=== PATIENT | male | born 1940 | race Caucasian/White ===

== ENCOUNTER 2016-12-24 14:41 | Emergency (ER) | payer OTHER, BC ==
[~2016-12-24] VITALS: Ht 182.9 cm; Wt 107.0 kg
[~2016-12-24 14:41] MED LIST: AMLO-110 PO; AMOX500T PO; ASPEC325 PO; ATOR-22 PO; CLOP1TAB15 PO; DVN80 PO; GLC500 PO; MCR25 PO; METO50TA16 PO; NTRGSL/4 SL; OMEP20CA9 OR; STLS PO
[2016-12-24 14:48] VITALS: TEMP 36.6; Ht 182.9 cm; Wt 107.0 kg
[2016-12-24] MEDS ORDERED: MoRPHine SULFATE 4 MG/ML 1 ML CARP\\VIAL IV STA (15:56)
[2016-12-24] MEDS ORDERED: ONDANSETRON INJ 2 MG/ML 2 ML VIAL IV STA (15:56)
[2016-12-24] MEDS ORDERED: DOCU-94 PO (15:59)
[2016-12-24] MEDS ORDERED: PANT40TA PO (15:59)
[2016-12-24] MEDS ORDERED: FLAX100019 PO (15:59)
[2016-12-24] MEDS ORDERED: METF-384 PO (15:59)
[2016-12-24] MEDS ORDERED: GLYB2.5T7 PO (15:59)
[2016-12-24] MEDS ORDERED: DVN80 PO (15:59)
[2016-12-24] MEDS ORDERED: ASPI81TA28 PO (16:00)
[2016-12-24 16:06] LABS: BASO % 0.1 %; BASO ABS # 0.01 K/uL (0-0.2); COMPLETE YES; EOS % 0.9 %; HEMATOCRIT 40.6 % (42-52); IG% 0.2 %; LYMPH % 16.8 %; LYMPH ABS # 1.58 K/uL (1.2-3.4); MEAN CELL VOLUME 91.6 fL (80-100); MEAN CORPUSCULAR HEMOGLOBIN 32.5 pg (25-34); MEAN CORPUSCULAR HGB CONC 35.5 g/dl (32-36); MEAN PLATELET VOLUME 9.3 fL (7.4-10.4); MONO % 10.6 %; NEUT % 71.4 %; PLATELET COUNT 203 K/uL (130-400); RED BLOOD COUNT 4.43 M/uL (4.7-6.1); WHITE BLOOD COUNT 9.38 K/uL (4.8-10.8)
[2016-12-24 16:17] LABS: BUN/CREATININE RATIO 13.8 (10-20); CALCIUM 8.9 mg/dl (8.5-10.1); CREATININE 1.2 mg/dl (0.60-1.40); POTASSIUM 4.1 mmol/L (3.5-5.1)
[2016-12-24 16:26] LABS: BETA-HYDROXYBUTYRATE 1.97 mg/dL (0.2-2.81)
--- NOTE | 2016-12-24 17:06 | DIAGNOSTIC IMAGING REPORT ---
CT SCAN OF THE ABDOMEN AND PELVIS WITHOUT CONTRAST CLINICAL HISTORY: Right flank pain COMPARISON STUDY: No previous studies for comparison. TECHNIQUE: CT scan of the abdomen and pelvis was performed from the lung bases to the proximal femurs. Images are reviewed in the axial, sagittal, and coronal planes. IV contrast was not administered for this examination. CT DOSE: 1653.97 mGy.cm FINDINGS: Lower chest: There are right middle lobe and bibasilar atelectatic changes. Liver: The unenhanced liver is normal in size, contour, and attenuation. There is no intrahepatic biliary ductal dilatation. Gallbladder: Unremarkable. Spleen: Normal in size and attenuation. Pancreas: Unremarkable. Adrenal glands: Unremarkable. Kidneys: There is a centimeter lower pole right renal cyst. There is a punctate nonobstructing lower pole right renal calculus. There is right-sided hydronephrosis. There is right-sided perinephric stranding. There is right-sided periureteral edema. There is a 3 mm obstructing calculus at the level of the right ureterovesical junction. Bowel: There are no transition zones indicate bowel obstruction. There is no evidence of acute appendicitis. There are scattered colonic diverticula present. There is no evidence of acute diverticulitis. Peritoneum: There is no intraperitoneal free air or abdominal ascites. Vasculature: The abdominal aorta is normal in course and caliber. Adenopathy: None. Pelvic viscera: There are fat-containing inguinal hernias versus lipomatous inguinal canals. Skeletal structures: No destructive osseous lesions are seen. IMPRESSION: 3 mm obstructing calculus at the level of the right ureterovesical junction Electronically signed by: Judd Arita M.D. 12/24/2016 5:04 PM Dictated Date/Time: 12/24/2016 5:00 PM
[2016-12-24 17:11] LABS: URINE APPEARANCE CLEAR (CLEAR); URINE BILIRUBIN NEG (NEG); URINE COLOR YELLOW; URINE EPITHELIAL CELL AUTO 0-5 /lpf (0-5); URINE NITRITE NEG (NEG); URINE SPECIFIC GRAVITY 1.025 (1.000-1.030); UROBILINOGEN NEG (NEG)
[2016-12-24 17:23] LABS: MANUAL MICROSCOPIC REQUIRED? NO; REVIEW REQ? YES
[2016-12-24] MEDS ORDERED: OXYC1TAB3 PO (17:43)
[2016-12-24] MEDS ORDERED: TAMS0.4C38 PO (17:43)
[2016-12-24] MEDS ORDERED: TAMSULOSIN HCL 0.4 MG CAP PO ONE (17:45)
[2016-12-24] MEDS ORDERED: OXYCODONE IR HOME PACK PO ONE (17:45)
[2016-12-24 18:06] VITALS: BP 136/89; PULSE 68; O2SAT 92
--- NOTE | 2016-12-24 19:22 | EMERGENCY ROOM VISIT NOTE ---
History Report prepared by Karen: Shania Galvin Under the Supervision of: Dr. Leland Huang M.D. First contact with patient: 15:50 Chief Complaint: FLANK PAIN Stated Complaint: PAIN IN RIGHT SIDE AROUND KIDNEY History of Present Illness The patient is a 76 year old male who presents to the Emergency Room with complaints of waxing and waning sharp right flank pain beginning 13 hours ago. The patient states that his pain is radiating into his abdomen and he complains of vomiting. He denies any pain with urination, blood in the urine, fever, chest pain, numbness or weakness in the legs, fall, and shortness of breath. He notes that he has no previous history of kidney stones. The patient reports that he still has his appendix. Source of History: patient Onset: 13 hours ago Position: other (right flank) Quality: sharp Timing: waxes/wanes Associated Symptoms: + abdominal pain, + vomiting, No SOB, No chest pain, No fevers, No numbness, No urinary symptoms, No weakness Note: He denies any fall. Review of Systems See HPI for pertinent positives & negatives. A total of 10 systems reviewed and were otherwise negative. Past Medical & Surgical Medical Problems: (1) Diabetes Family History No pertinent family history stated. Social History Smoking Status: Never Smoker Drug Use: none Marital Status: Housing Status: lives with significant other Occupation Status: retired Current/Historical Medications Scheduled Amlodipine (Norvasc), 5 MG PO DAILY Aspirin (Aspirin Ec), 81 MG PO DAILY Atorvastatin (Lipitor), 20 MG PO HS Docusate Sodium (Colace), 1 CAP PO BID Flaxseed (Linseed) (Flaxseed Oil 1000 mg), 1 CAP PO DAILY Glyburide (Diabeta), 2.5 MG PO BID Metformin Hcl (Glucophage), 1,000 MG PO BID Metoprolol Tartrate (Lopressor) (Lopressor), 50 MG PO Q12 Pantoprazole (Protonix), 40 MG PO DAILY Valsartan (Diovan), 80 MG PO DAILY Scheduled PRN Nitroglycerin (Nitrostat), 0.4 MG SL UD PRN Oxycodone Ir (Roxicodone Ir), 5 MG PO Q4H PRN for Pain Tamsulosin Hcl (Flomax), 0.4 MG PO DAILY PRN for until you pass stone Allergies Coded Allergies: Clopidogrel (Verified Allergy, Unknown, ., 12/24/16) Physical Exam Vital Signs Date Time Temp Pulse Resp B/P Pulse Ox O2 Delivery O2 Flow Rate FiO2 12/24/16 18:06 68 18 136/89 92 12/24/16 16:45 63 18 157/105 94 Room Air 12/24/16 14:48 36.6 99 18 174/93 94 Room Air Physical Exam Constitutional: Vital signs reviewed. Eyes: Pupils are equal round reactive to light. Conjunctiva are noninjected. ENT: Pharynx is clear without erythema or exudate. Mucous membranes are moist. Neck supple without meningeal signs. Respiratory: Clear to auscultation bilaterally. Breath sounds are equal bilaterally. Cardiovascular: Regular rate and rhythm. No rubs or gallops. GI: Soft, nondistended. Bowel sounds are present. Right mild mid abdominal tenderness, no guarding. Musculoskeletal: No peripheral edema. No CVA tenderness. Integumentary: No cyanosis. Neurological: The patient is awake and alert. No focal deficits. Psychiatric: Normal affect. Medical Decision & Procedures ER Provider Diagnostic Interpretation: CT results as stated below per my review and radiologist interpretation. CT SCAN OF THE ABDOMEN AND PELVIS WITHOUT CONTRAST FINDINGS: Lower chest: There are right middle lobe and bibasilar atelectatic changes. Liver: The unenhanced liver is normal in size, contour, and attenuation. There is no intrahepatic biliary ductal dilatation. Gallbladder: Unremarkable. Spleen: Normal in size and attenuation. Pancreas: Unremarkable. Adrenal glands: Unremarkable. Kidneys: There is a centimeter lower pole right renal cyst. There is a punctate nonobstructing lower pole right renal calculus. There is right-sided hydronephrosis. There is right-sided perinephric stranding. There is right-sided periureteral edema. There is a 3 mm obstructing calculus at the level of the right ureterovesical junction. Bowel: There are no transition zones indicate bowel obstruction. There is no evidence of acute appendicitis. There are scattered colonic diverticula present. There is no evidence of acute diverticulitis. Peritoneum: There is no intraperitoneal free air or abdominal ascites. Vasculature: The abdominal aorta is normal in course and caliber. Adenopathy: None. Pelvic viscera: There are fat-containing inguinal hernias versus lipomatous inguinal canals. Skeletal structures: No destructive osseous lesions are seen. IMPRESSION: 3 mm obstructing calculus at the level of the right ureterovesical junction Electronically signed by: Judd Arita M.D. 12/24/2016 5:04 PM Dictated Date/Time: 12/24/2016 5:00 PM Laboratory Results 12/24/16 15:20 Red Blood Count 4.43, Mean Corpuscular Volume 91.6, Mean Corpuscular Hemoglobin 32.5, Mean Corpuscular Hemoglobin Concent 35.5, Mean Platelet Volume 9.3, Neutrophils (%) (Auto) 71.4, Lymphocytes (%) (Auto) 16.8, Monocytes (%) (Auto) 10.6, Eosinophils (%) (Auto) 0.9, Basophils (%) (Auto) 0.1, Neutrophils # (Auto ) 6.70, Lymphocytes # (Auto) 1.58, Monocytes # (Auto) 0.99, Eosinophils # (Auto ) 0.08, Basophils # (Auto) 0.01 12/24/16 15:20 Test 12/24/16 00:00 12/24/16 15:20 Urine Color YELLOW Urine Appearance CLEAR (CLEAR) Urine pH 5.0 (4.5-7.5) Urine Specific [place] 1.025 (1.000-1.030) Urine Protein NEG (NEG) Urine Glucose (UA) 3+ (NEG) Urine Ketones 1+ (NEG) Urine Occult Blood 3+ (NEG) Urine Nitrite NEG (NEG) Urine Bilirubin NEG (NEG) Urine Urobilinogen NEG (NEG) Urine Leukocyte Esterase NEG (NEG) Urine WBC (Auto) 0 /hpf (0-5) Urine RBC (Auto) 10-30 /hpf (0-4) Urine Hyaline Casts (Auto) 1-5 /lpf (0-5) Urine Epithelial Cells (Auto) 0-5 /lpf (0-5) Urine Bacteria (Auto) NEG (NEG) Urine Yeast (Auto) (NONE PRSENT) White Blood Count 9.38 K/uL (4.8-10.8) Red Blood Count 4.43 M/uL (4.7-6.1) Hemoglobin 14.4 g/dL (14.0-18.0) Hematocrit 40.6 % (42-52) Mean Corpuscular Volume 91.6 fL (80-100) Mean Corpuscular Hemoglobin 32.5 pg (25-34) Mean Corpuscular Hemoglobin Concent 35.5 g/dl (32-36) Platelet Count 203 K/uL (130-400) Mean Platelet Volume 9.3 fL (7.4-10.4) Neutrophils (%) (Auto) 71.4 % Lymphocytes (%) (Auto) 16.8 % Monocytes (%) (Auto) 10.6 % Eosinophils (%) (Auto) 0.9 % Basophils (%) (Auto) 0.1 % Neutrophils # (Auto) 6.70 K/uL (1.4-6.5) Lymphocytes # (Auto) 1.58 K/uL (1.2-3.4) Monocytes # (Auto) 0.99 K/uL (0.11-0.59) Eosinophils # (Auto) 0.08 K/uL (0-0.5) Basophils # (Auto) 0.01 K/uL (0-0.2) RDW Standard Deviation 42.7 fL (36.4-46.3) RDW Coefficient of Variation 12.7 % (11.5-14.5) Immature Granulocyte % (Auto) 0.2 % Immature Granulocyte # (Auto) 0.02 K/uL (0.00-0.02) Anion Gap 12.0 mmol/L (3-11) Est Creatinine Clear Calc Drug Dose 66.2 ml/min Estimated GFR () 67.7 Estimated GFR (Non- 58.4 BUN/Creatinine Ratio 13.8 (10-20) Calcium Level 8.9 mg/dl (8.5-10.1) Total Bilirubin 0.4 mg/dl (0.2-1) Direct Bilirubin 0.1 mg/dl (0-0.2) Aspartate Amino Transf (AST/SGOT) 22 U/L (15-37) Alanine Aminotransferase (ALT/SGPT) 34 U/L (12-78) Alkaline Phosphatase 86 U/L (45-117) Total Protein 7.7 gm/dl (6.4-8.2) Albumin 4.3 gm/dl (3.4-5.0) Lipase 149 U/L (73-393) Beta-Hydroxybutyric Acid 1.97 mg/dL (0.2-2.81) Laboratory results as reviewed by me. Medications Administered Medications (Trade) Dose Ordered Sig/Jennyfer Route Start Time Stop Time Status Last Admin Dose Admin Morphine Sulfate (MoRPHine SULFATE INJ) 4 mg ONE STAT IV 12/24/16 15:56 12/24/16 15:58 DC 12/24/16 16:22 4 MG Ondansetron HCl (Zofran Inj) 4 mg NOW STAT IV 12/24/16 15:56 12/24/16 15:58 DC 12/24/16 16:22 4 MG Tamsulosin HCl (Flomax Cap) 0.4 mg NOW ONCE PO 12/24/16 17:45 12/24/16 17:46 DC 12/24/16 17:45 0.4 MG Oxycodone HCl (Roxicodone Immediate Rel 5MG Home Pack) 1 homepack UD ONCE PO 12/24/16 17:45 12/24/16 17:46 DC 12/24/16 17:45 1 HOMEPACK ED Course 1550: The patient was evaluated in room C5. A complete history and physical exam was performed. 1556: Zofran Inj 4mg IV, Morphine Sulfate 4mg IV. 1736: I reevaluated the patient. He is feeling better. I reviewed his test results and medications. 1745: Oxycodone HCl 1 homepack PO, Flomax Cap 0.4mg PO. 1745: Upon reevaluation, the patient appeared to have improvement of his symptoms. I discussed saul's findings with the patient. He verbalized agreement of the treatment plan. The patient was discharged home. Medical Decision This is a 76-year-old male who presents with right-sided flank pain. Differential diagnosis includes ureterolithiasis, hydronephrosis, appendicitis, strain, mass, pancreatitis. I did perform a limited focused review of portions of the patient's old chart on the electronic medical record. The patient has had no recent pertinent visits to this hospital. I did evaluate the patient as noted above. IV access was established. I did treat the patient with IV morphine and Zofran. I did order and review the patient's urinalysis as described above. I did order and review the patient's blood work as noted in the electronic medical record. I did order a CT of the abdomen and pelvis. I did review the images myself as well as the radiology report as described above. The patient has a 3 mm right UVJ stone. I did reassess the patient. He is feeling better. I did discuss the test results with the patient and his . He was given Flomax orally. He was advised follow with his doctor. He was discharged with a prescription for oxycodone and Flomax and given precautions regarding these medications. He will stop the Flomax once he passes the kidney stone. He was given a urine strainer and home pack for OxyIR. Impression Primary Impression: Renal colic Scribe Attestation The scribe's documentation has been prepared under my direct and personally reviewed by me in its entirety. I confirm that the note above accurately reflects all work, treatment, procedures, and medical decision making performed by me. Departure Information Dispostion Home / Self-Care Prescriptions Tamsulosin Hcl (FLOMAX) 0.4 Mg Cap 0.4 MG PO DAILY Y for until you pass stone, #6 CAP Prov: Leland Huang M.D. 12/24/16 Oxycodone Ir (Roxicodone Ir) 5 Mg Tab 5 MG PO Q4H Y for Pain, #20 TAB Prov: Leland Huang M.D. 12/24/16 Referrals John De Los Santos M.D. (PCP) Forms HOME CARE DOCUMENTATION FORM, IMPORTANT VISIT INFORMATION Patient Instructions Kidney Stones Expectant Therapy, My [facility] Additional Instructions You have been examined and treated today on an emergency basis only. This is not a substitute for, or an effort to provide, complete comprehensive medical care. It is impossible to recognize and treat all injuries or illnesses in a single emergency department visit. It is therefore important that you follow up closely with your physician. Call as soon as possible for an appointment. Return for worsening symptoms or if you develop fever, vomiting, or any other concerning symptoms.
== END 2016-12-24 18:07 | disposition home or self-care (01) ==
LOC: C.EDB 14:42 → C.EDC 18:07
DX: N23 Unspecified renal colic (principal); N20.1 Calculus of ureter

== ENCOUNTER → 2016-12-27 | Outpatient (CLI) | payer OTHER, BC ==
[~2016-12-27] MED LIST changes: -AMOX500T PO; -ASPEC325 PO; +ASPI81TA28 PO; -CLOP1TAB15 PO; +DOCU-94 PO; +FLAX100019 PO; -GLC500 PO; +GLYB2.5T7 PO; -MCR25 PO; +METF-384 PO; -OMEP20CA9 OR; +OXYC1TAB3 PO; +PANT40TA PO; -STLS PO; +TAMS0.4C38 PO
== END | disposition home or self-care (01) ==
LOC: C.LABSPEC 12:33
PROVIDERS: ATTEND Internal Medicine
DX: N20.0 Calculus of kidney (principal)

== ENCOUNTER → 2017-01-30 | Outpatient (CLI) | payer OTHER, BC ==
[~2017-01-30] MED LIST changes: -TAMS0.4C38 PO
[2017-01-30 13:57] LABS: ALT/SGPT 39 U/L (12-78); BLOOD UREA NITROGEN 13 mg/dl (7-18); BUN/CREATININE RATIO 15.3 (10-20); CALCIUM 8.9 mg/dl (8.5-10.1); CARBON DIOXIDE 23 mmol/L (21-32); CHLORIDE 103 mmol/L (98-107); CHOLESTEROL 149 mg/dl (0-200); CREATININE 0.86 mg/dl (0.60-1.40); GLUCOSE 198 mg/dl (70-99); POTASSIUM 4.1 mmol/L (3.5-5.1); SODIUM 139 mmol/L (136-145); TRIGLYCERIDES 210 mg/dl (0-150); VERY LOW DENSITY LIPOPROT CALC 42 mg/dl
[2017-01-30 13:59] LABS: ALB/GLOB RATIO 1.2 (0.9-2); ALKALINE PHOSPHATASE 65 U/L (45-117); AST/SGOT 26 U/L (15-37); CHOLESTEROL/HDL RATIO 4.1; HDL CHOLESTEROL 36 mg/dl
[2017-01-30 14:13] LABS: ESTIMATED AVERAGE GLUCOSE 183 mg/dl; HA1C FLAG Normal (Normal)
[2017-01-30 14:19] LABS: RATIO 27.7 mcg/mg (0-30.0)
== END | disposition home or self-care (01) ==
LOC: C.LABSPEC 12:29
PROVIDERS: ATTEND Internal Medicine
DX: E11.9 Type 2 diabetes mellitus without complications (principal); I25.10 Atherosclerotic heart disease of native coronary artery without angina pectoris; E78.5 Hyperlipidemia, unspecified

== ENCOUNTER → 2017-02-01 | Outpatient (CLI) | payer OTHER, BC | END | disposition home or self-care (01) | LOC: C.LABSPEC 17:33 | PROVIDERS: ATTEND Internal Medicine | DX: Z12.11 Encounter for screening for malignant neoplasm of colon (principal) ==

== ENCOUNTER → 2017-07-28 | Outpatient (CLI) | payer OTHER, BC ==
[~2017-07-28] MED LIST changes: +OPTIRAY 320 IV PRN; -OXYC1TAB3 PO
[2017-07-28 11:38] LABS: BASO % 0.3 %; BASO ABS # 0.02 K/uL (0-0.2); EOS % 1.2 %; HEMATOCRIT 40.1 % (42-52); IG% 0.3 %; LYMPH % 22.8 %; LYMPH ABS # 1.54 K/uL (1.2-3.4); MEAN CELL VOLUME 91.8 fL (80-100); MEAN CORPUSCULAR HEMOGLOBIN 31.8 pg (25-34); MEAN PLATELET VOLUME 8.5 fL (7.4-10.4); MONO % 8.3 %; NEUT % 67.1 %; PLATELET COUNT 217 K/uL (130-400); RED BLOOD COUNT 4.37 M/uL (4.7-6.1); WHITE BLOOD COUNT 6.76 K/uL (4.8-10.8)
[2017-07-28 11:40] LABS: COMPLETE YES; MEAN CORPUSCULAR HGB CONC 34.7 g/dl (32-36)
[2017-07-28 11:56] LABS: ALT/SGPT 31 U/L (12-78); BLOOD UREA NITROGEN 13 mg/dl (7-18); BUN/CREATININE RATIO 11.8 (10-20); CARBON DIOXIDE 25 mmol/L (21-32); CHLORIDE 105 mmol/L (98-107); GLUCOSE 257 mg/dl (70-99); POTASSIUM 4.1 mmol/L (3.5-5.1); SODIUM 138 mmol/L (136-145)
[2017-07-28 12:00] LABS: ALKALINE PHOSPHATASE 85 U/L (45-117); AST/SGOT 27 U/L (15-37)
--- NOTE | 2017-07-28 13:37 | DIAGNOSTIC IMAGING REPORT ---
CT ABD/PELVIS IV AND ORAL CONT CLINICAL HISTORY: SEVERE LLQ PAIN, R/O DIVERTICULITIS COMPARISON STUDY: 12/16/2016 TECHNIQUE: Following the IV administration of 92 mL of Optiray-320, CT scan of the abdomen and pelvis was performed from the lung bases to the proximal femurs. Images are reviewed in the axial, sagittal, and coronal planes. IV contrast was administered without complication. A dose lowering technique was utilized adhering to the principles of ALARA. CT DOSE: 852.95 mGy.cm FINDINGS: Lower chest: There are minor basilar atelectatic changes. Liver: There is mild hepatic steatosis. No focal masses are visualized. Gallbladder: Unremarkable. Spleen: Normal in size and attenuation. Pancreas: Unremarkable. Adrenal glands: Unremarkable. Kidneys: There are bilateral renal cysts including a 9.5 cm lower pole left renal cyst. There is a punctate nonobstructing lower pole right renal calculus. There is a 2 mm calculus at the level of the left ureterovesical junction. There is mild secondary dilatation of the left renal collecting system. Bowel: There are no transition zones indicate bowel obstruction. There is colonic diverticulosis. There is no acute diverticulitis. The appendix is bulbous but there are no periappendiceal inflammatory changes. The finding remains unchanged from the preceding study Peritoneum: There is no intraperitoneal free air or abdominal ascites. There is small fat-containing hernias. Vasculature: The abdominal aorta is normal in course and caliber. Adenopathy: None. Pelvic viscera: The bladder, and pelvic viscera are unremarkable. Skeletal structures: No destructive osseous lesions are seen. IMPRESSION: 1. 2 mm calculus at the level of the left ureterovesical junction with mild secondary obstructive changes 2. Punctate lower pole right renal calculus 3. No evidence of bowel obstruction. No evidence of free air 4. No evidence of acute diverticulitis Electronically signed by: Judd Arita M.D. 07/28/2017 1:36 PM Dictated Date/Time: 07/28/2017 1:29 PM
== END | disposition home or self-care (01) ==
LOC: C.CTS 11:19
PROVIDERS: ATTEND Internal Medicine
DX: R10.32 Left lower quadrant pain (principal)

== ENCOUNTER → 2018-02-08 | Outpatient (CLI) | payer OTHER, BC ==
[~2018-02-08] MED LIST changes: -OPTIRAY 320 IV PRN
[2018-02-08 16:42] LABS: BASO % 0.2 %; BASO ABS # 0.01 K/uL (0-0.2); EOS % 2.3 %; EOS ABS # 0.13 K/uL (0-0.5); HEMATOCRIT 37.5 % (42-52); HEMOGLOBIN 12.2 g/dL (14.0-18.0); IG# 0.01 K/uL (0.00-0.02); LYMPH % 21.2 %; LYMPH ABS # 1.21 K/uL (1.2-3.4); MEAN CELL VOLUME 90.1 fL (80-100); MEAN CORPUSCULAR HEMOGLOBIN 29.3 pg (25-34); MEAN CORPUSCULAR HGB CONC 32.5 g/dl (32-36); MONO % 12.5 %; MONO ABS # 0.71 K/uL (0.11-0.59); NEUT % 63.6 %; NEUT ABS # 3.63 K/uL (1.4-6.5); PLATELET COUNT 238 K/uL (130-400); RED CELL DISTRIBUTION WIDTH CV 13.3 % (11.5-14.5); RED CELL DISTRIBUTION WIDTH SD 43.8 fL (36.4-46.3)
[2018-02-08 16:54] LABS: ALBUMIN 3.8 gm/dl (3.4-5.0); ALT/SGPT 32 U/L (12-78); BLOOD UREA NITROGEN 11 mg/dl (7-18); CARBON DIOXIDE 25 mmol/L (21-32); CREATININE 0.91 mg/dl (0.60-1.40); GLUCOSE 273 mg/dl (70-99); LIPASE 165 U/L (73-393); POTASSIUM 4.2 mmol/L (3.5-5.1); SODIUM 133 mmol/L (136-145)
[2018-02-08 16:56] LABS: ALKALINE PHOSPHATASE 89 U/L (45-117); AST/SGOT 33 U/L (15-37); TOTAL PROTEIN 7.9 gm/dl (6.4-8.2)
== END | disposition home or self-care (01) ==
LOC: C.LABSPEC 16:09
PROVIDERS: ATTEND Internal Medicine
DX: R10.11 Right upper quadrant pain (principal); I25.10 Atherosclerotic heart disease of native coronary artery without angina pectoris; I10 Essential (primary) hypertension

== ENCOUNTER → 2018-02-13 | Outpatient (CLI) | payer OTHER, BC ==
--- NOTE | 2018-02-13 09:12 | DIAGNOSTIC IMAGING REPORT ---
ABDOMEN LIMITED (US) HISTORY: 77 years-old Male UPPER ABD PAIN acute upper abdominal pain COMPARISON: CT abdomen and pelvis 07/28/2017 TECHNIQUE: Multiple real-time sonogram images of the abdominal right upper quadrant were obtained assessing grayscale appearance and color flow FINDINGS: The imaged pancreas is unremarkable. There is increased echogenicity with poor through transmission of the liver suggesting fatty infiltration. No focal hepatic mass lesions or intrahepatic biliary ductal dilation. A few areas of focal fatty sparing are noted adjacent to the hazel hepatis measuring up to 7 mm. Gallbladder is within normal limits without wall thickening, shadowing cholelithiasis or pericholecystic fluid. Common bile duct is normal, 4 mm. 9 mm cyst of the superior pole right kidney redemonstrated. No right-sided hydronephrosis identified. Patient reports tenderness of the right lower quadrant abdomen. There is an apparent bowel containing hernia of the abdominal right lower quadrant which does not appear to be reducible, diastases at the hernia site measuring 2 cm. IMPRESSION: 1. Unremarkable sonographic appearance of the gallbladder without cholelithiasis or acute cholecystitis. 2. Fatty infiltration of the liver. 3. Bowel filled hernia of the abdominal right lower quadrant appears nonreducible. Correlate with clinical exam. The above report was generated using voice recognition software. It may contain grammatical, syntax or spelling errors. Electronically signed by: Clint Rodriguez M.D. 02/13/2018 9:10 AM Dictated Date/Time: 02/13/2018 9:06 AM
== END | disposition home or self-care (01) ==
LOC: C.ULTR 08:25
PROVIDERS: ATTEND Internal Medicine
DX: R10.10 Upper abdominal pain, unspecified (principal); K76.0 Fatty (change of) liver, not elsewhere classified

== ENCOUNTER → 2018-03-02 | Outpatient (CLI) | payer OTHER, BC ==
[~2018-03-02] MED LIST changes: +DVN/160 PO; +GLYB5TAB8 PO; +LPT/40 PO; +MULT-1027 PO; +NAPR1TAB9 PO; +NTRGSL/4 UT; +OPTIRAY 320 IV PRN; +PRLSR20 PO; +TRAM-10 PO
--- NOTE | 2018-03-02 08:07 | DIAGNOSTIC IMAGING REPORT ---
CT OF THE ABDOMEN AND PELVIS WITH CONTRAST CLINICAL HISTORY: Pelvic pain. Right lower quadrant hernia seen on ultrasound. COMPARISON STUDY: CT of the abdomen and pelvis July 28, 2017 and abdominal ultrasound February 13, 2018. TECHNIQUE: Following IV administration of 94 mL of Optiray-320, axial images of the abdomen and pelvis were obtained from the lung bases to the proximal femurs. Images were reviewed in the axial, sagittal, and coronal planes. IV contrast was administered without complication. A dose lowering technique was utilized adhering to the principles of ALARA. Oral contrast was administered. CT DOSE: 1047.61 mGycm FINDINGS: Linear bibasilar opacities reflect atelectasis. There is moderate cardiomegaly and extensive coronary artery calcification. The liver, spleen, adrenal glands and pancreas are normal with the exception of fatty infiltration of the liver. Note is made of an 8.5 cm cyst within the lower pole of the left kidney. There are numerous subcentimeter bilateral renal lesions which are too small to characterize. There is no hydronephrosis. Note is made of a 3 mm calculus within the lower pole of the right kidney. No pneumatosis, free air or portal venous gas is present. There is a small amount of abdominal and pelvic ascites. Note is made of moderate dilated fluid-filled small bowel. This involves the mid to distal small bowel. The transition point is likely at the ileocecal valve. There is mass-like thickening of the ileocecal valve and the cecum with conglomerate associated ileocolic lesions, the largest of which measures 3.9 cm. These could reflect conglomerate pathologic lymph nodes. The appendix is mildly dilated and fluid filled with mild wall thickening, measuring 1.4 cm in caliber. Note is made of a few possible small enhancing peritoneal nodules within the cul-de-sac shown on axial image 417 of 491 and axial image 411. These measure 5 mm. In addition, there is a possible 1 cm omental implant within the right mid omentum shown on axial image 202. There is no biliary or pancreatic ductal dilatation. IMPRESSION: 1. Moderate grade small bowel obstruction with transition point likely at the ileocecal valve. Mass-like thickening of the ileocecal valve and cecum is highly suggestive of malignancy with associated conglomerate ileocolic lymphadenopathy/extension of tumor. Mild appendiceal dilatation may reflect appendicitis secondary to obstruction by the tumor. Small amount of abdominal and pelvic ascites with suspected small peritoneal and omental implants. Discussed with Dr. Jaimes at time of dictation. 2. Fatty liver. No hepatic lesions identified. 3. Numerous renal cysts. Electronically signed by: Chidi Vogel M.D. 03/02/2018 8:05 AM Dictated Date/Time: 03/02/2018 7:34 AM
== END | disposition home or self-care (01) ==
LOC: C.CTS 06:58
PROVIDERS: ATTEND Surgery
DX: K46.9 Unspecified abdominal hernia without obstruction or gangrene (principal); R10.9 Unspecified abdominal pain; N28.1 Cyst of kidney, acquired

== ENCOUNTER → 2018-03-05 | Outpatient (CLI) | payer OTHER, BC ==
[~2018-03-05] MED LIST changes: +TRAM-453 PO
--- NOTE | 2018-03-05 07:16 | DIAGNOSTIC IMAGING REPORT ---
CHEST CT WITH CONTRAST CT DOSE: 459.33 mGy.cm HISTORY: Metastatic survey. K63.9 Mass of colonPATIENT IS SCHEDULED FOR 03/05/18, ARRIVE AT HO TECHNIQUE: Multiaxial CT images of the chest were performed following the intravenous administration of contrast. A dose lowering technique was utilized adhering to the principles of ALARA. COMPARISON: CT abdomen and pelvis 03/02/2018. FINDINGS: Thyroid is homogeneous without dominant nodule identified. No pathologically enlarged lymph nodes of the chest identified. Calcified bilateral hilar lymph nodes compatible with prior granulomatous disease. The heart is within the upper limits of normal in size with trace pericardial effusion. Three-vessel distribution of coronary arterial disease is noted. The thoracic aorta is normal in both course and caliber without aneurysm or dissection. Mild mixed plaquing of the aortic arch and proximal great vessels. There is slight kinking of the right subcutaneous and artery as it passes adjacent to the right first rib with less than 50% luminal narrowing. The opacified pulmonary arterial tree is unremarkable. There are multiple calcified granulomas but the lungs bilaterally. There is no pneumothorax or pleural effusion. Subsegmental linear areas of consolidation are noted within the mid and lower lung zones bilaterally suggesting areas of atelectasis/scarring. No suspicious pulmonary nodules are identified to suggest metastasis. Indeterminate 2 mm nodule of the left lower lobe, image 226 series 4 is likely benign. Central airways are patent. 12 mm cyst of the superior pole left kidney. Trace abdominal ascites. Mild dilation with air-fluid levels involves small bowel loops of the upper abdomen. Previously described suspected omental and peritoneal implants are better seen on comparison CT study. No hepatic mass lesions identified. Soft tissues are unremarkable. No suspicious lytic or blastic bony lesions identified to suggest metastasis. Remote appearing left-sided rib fractures. Predominately mild multilevel degenerative changes about the spine. IMPRESSION: 1. No evidence of metastatic disease or pathologically enlarged adenopathy about the chest. 2. Evidence of prior granulomatous disease. 3. Trace abdominal ascites with persistent mild dilation involving small bowel loops of the upper abdomen suggesting ongoing obstruction. Please refer to CT abdomen and pelvis study 03/02/2018 for further details concerning the abdominal and pelvis findings. Electronically signed by: Clint Rodriguez M.D. 03/05/2018 7:14 AM Dictated Date/Time: 03/05/2018 7:04 AM
== END | disposition home or self-care (01) ==
LOC: C.CTS 06:39
PROVIDERS: ATTEND Surgery
DX: K63.9 Disease of intestine, unspecified (principal)

== ENCOUNTER 2018-03-26 06:58 | Day surgery (SDC) | payer OTHER, BC ==
[2018-03-22 14:02] VITALS: BMI 29.0
[~2018-03-26] VITALS: Ht 182.9 cm; Wt 97.3 kg
[~2018-03-26 06:58] MED LIST changes: -ATOR-22 PO; +CEFAZOLIN 2000MG IV PUSH 15 ML IV SCH; -DOCU-94 PO; -DVN80 PO; -GLYB2.5T7 PO; +LACTATED RINGER'S 1000ML 1,000 ML IV SCH; -NTRGSL/4 SL; -OPTIRAY 320 IV PRN; -PANT40TA PO; -TRAM-10 PO
[2018-03-26 07:39] VITALS: BP 119/80; PULSE 93; TEMP 36.7; O2SAT 97; Ht 182.9 cm; Wt 97.3 kg
[2018-03-26] MEDS ORDERED: LIDOCAINE HCL 2% 2 ML VIAL (20MG/ML) ONE (09:08)
[2018-03-26] MEDS ORDERED: FENTANYL CITRATE INJ 50 MCG/1 ML 2 ML VIAL ONE (09:08)
[2018-03-26] MEDS ORDERED: MIDAZOLAM HCL 1 MG/ML 2ML VIAL ONE (09:08)
[2018-03-26] MEDS ORDERED: PROPOFOL IV EMULSION 10 MG/ML 20 ML VIAL ONE ×2 (09:08→10:14)
--- NOTE | 2018-03-26 09:19 | History & Physical Bridge Note ---
H&P Re-Evaluation Bridge Note: I have examined the patient, reviewed the History & Physical and in the interval since the performance of the History & Physical I have noted the following changes of clinical significance: No changes noted
[2018-03-26] MEDS ORDERED: ATROPINE SULFATE 0.1 MG/ML 5ML SYR IV PRN (09:30)
[2018-03-26] MEDS ORDERED: EpHEDrine SULFATE INJ 50 MG/ML AMP IV PRN (09:30)
[2018-03-26] MEDS ORDERED: ONDANSETRON INJ 2 MG/ML 2 ML VIAL IV PRN ×2 (09:30→10:45)
[2018-03-26] MEDS ORDERED: PROMETHAZINE HCL INJ 6.25 MG in SODIUM CHLORIDE 0.9% 50ML 50 ML IV PRN (09:30)
[2018-03-26] MEDS ORDERED: FENTANYL CITRATE INJ 50 MCG/1 ML 2 ML VIAL IV PRN (09:30)
[2018-03-26] MEDS ORDERED: BUPIVACAINE 0.5 % 5 MG/1 ML MPF 30ML VIAL ONE (09:35)
[2018-03-26] MEDS ORDERED: HEPARIN SOD (PORCINE) 1000 UNIT/ML 10 ML VIAL ONE (09:35)
[2018-03-26] MEDS ORDERED: LIDOCAINE/EPINEPHRINE 1% 20 ML VIAL ONE (09:36)
[2018-03-26] MEDS ORDERED: KETAMINE HCL INJ 50 MG/ML 10 ML VIAL ONE (09:37)
--- NOTE | 2018-03-26 10:01 | Discharge Instructions ---
Discharge Instructions Date of Service Mar 26, 2018. Visit Reason for Visit: Colon Cancer Discharge Discharge Diagnosis / Problem: A-port Discharge Goals Goal(s): Therapeutic intervention Activity Recommendations Activity Limitations: resume your previous activity Shower/Bathe: no limitations Anesthesia . Post Anesthesia Instructions: If you have had General Anesthesia or IV Sedation: * Do not drive today. * Resume driving when surgeon permits. * Do not make important decisions or sign legal documents today. * Call surgeon for: 1. Temperature elevations greater than 101 degrees F. 2. Uncontrollable pain. 3. Excessive bleeding. 4. Persistent nausea and vomiting. 5. Medication intolerance (nausea, vomiting or rash). * For nausea and vomiting use only clear liquids such as: tea, soda, bouillon until nausea subsides, then gradually increase diet as tolerated. * If you have any concerns or questions, call your surgeon's office. If physician is unavailable and it is an emergency, call 911 or go to the nearest emergency room. . Instructions / Follow-Up Instructions / Follow-Up Dr. Jaimes in 2 weeks or as scheduled, call [phone] if you have any questions It is OK for port to be used You may take Naproxen, Tylenol or Ultram for pain Diet Recommendations Recommended Home Diet: no limitations Pending Studies Studies pending at discharge: no Medical Emergencies . Who to Call and When: Medical Emergencies: If at any time you feel your situation is an emergency, please call 911 immediately. . Non-Emergent Contact Non-Emergency issues call your: Surgeon Call Non-Emergent contact if: you have a fever, temperature is above 101.5, your pain is not controlled, wound has increased redness . . "Provider Documentation" section prepared by Shin Aquino. .
--- NOTE | 2018-03-26 10:40 | [facility] Post Operative Brief Note ---
Immediate Operative Summary Operative Date Mar 26, 2018. Pre-Operative Diagnosis Colon cancer, need for vascular access for treatment Post-Operative Diagnosis Same as preop Procedure(s) Performed Insertion of Mediport into left internal jugular vein Surgeon Dr. Jaimes Endodontist Surgeon(s) Katheryn Burt PA-C Estimated Blood Loss 6 cc Findings Consistent with Post-Op Diagnosis Specimens none, as per surgeon Anesthesia Type MAC Complication(s) none Disposition Accompanied Pt To Recover: no Disposition: Recovery Room / PACU
--- NOTE | 2018-03-26 10:42 | [facility] Operative Report ---
Operative Report Operative Date Mar 26, 2018. Pre-Operative Diagnosis Colon cancer, need for vascular access for treatment Post-Operative Diagnosis Same Procedure(s) Performed Left internal jugular vein PowerPort placement Surgeon Dr. Jaimes Corner Former Surgeon(s) Katheryn Burt PA-C Estimated Blood Loss 6 cc Findings Left internal jugular vein accessed using real-time ultrasound guidance. Catheter placed using fluoroscopy. Draws and flushes easily at conclusion of case. Specimens none, as per surgeon Drains None Anesthesia MAC/local Complication(s) None Disposition Recovery Room / PACU Indications 77-year-old male with recently diagnosed colon cancer status post hemicolectomy , in need of access for chemotherapy. Plan for PowerPort placement the risks of the procedure were discussed, all questions were answered, and the patient agreed to proceed with surgery as planned. Description of Procedure The patient was properly identified, consented, and taken to the operating room where he was placed in the supine position with both arms tucked and a shoulder roll placed vertically. Monitored anesthesia care was induced. SCDs and a safety belt were placed. Preoperative antibiotics were administered. The patient's chest and neck was prepped and draped in the standard sterile fashion. Surgical timeout was performed and all parties were in agreement that this was the correct patient and procedure to be performed and we continued as planned. The patient was placed in Trendelenburg position. Local anesthetic was injected along the skin incision. Using real-time ultrasound guidance the left internal jugular vein was accessed using the access needle. The wire was placed and the needle was removed. Fluoroscopy confirmed placement into the internal jugular vein extending into the superior vena cava. A transverse skin incision was made in the left chest and a pocket was created for the port. A subcutaneous tunnel was created and the catheter was brought from the neck incision into the chest incision. The dilator and peel-away sheath were inserted over the wire. The catheter was then inserted through the peel-away sheath and fluoroscopy confirmed placement into the superior vena cava. The catheter was cut and attached to the port. The port was secured into place with 3-0 Prolene sutures. A final x-ray revealed good placement of the port. The wound was irrigated and hemostasis was confirmed. The skin was closed with interrupted 3-0 Vicryl deep dermal sutures, followed by 4-0 Monocryl running subcuticular suture. Dermabond was placed over the wound. The port was accessed and abdulaziz blood easily and flushed easily. It was flushed with heparinized saline. The patient taken to the PACU where he recovered without apparent incident. All sponge, instrument and needle counts were correct at the conclusion of the procedure. The patient tolerated the procedure well. Portable chest x-ray was pending at the time of this dictation per The physician's tiler's assistant was present and scrubbed for the entirety of the case , and was essential in positioning the patient, prepping and draping, retraction and exposure, placement of the port, closure of the wounds, and placement of dressings. I attest to the content of the Intraoperative Record and any orders documented therein. Any exceptions are noted below.
--- NOTE | 2018-03-26 10:44 | [facility] Operative Report ---
Operative Report Operative Date Mar 26, 2018. Pre-Operative Diagnosis Colon cancer, need for vascular access for treatment Procedure(s) Performed Left internal jugular vein PowerPort placed Surgeon Dr. Jaimes Findings Left internal jugular vein PowerPort placed using real-time ultrasound guidance. Fluoroscopy was used and interpreted by the surgeon throughout the procedure. A total of 62 seconds of fluoroscopy time was utilized. I attest to the content of the Intraoperative Record and any orders documented therein. Any exceptions are noted below.
[2018-03-26] MEDS ORDERED: MoRPHine SULFATE 2 MG/ML CARP IV PRN (10:45)
[2018-03-26] MEDS ORDERED: HYDROCODONE/ACETAMIN 5/325MG TAB PO PRN (10:45)
[2018-03-26 10:50] VITALS: BP 113/66; PULSE 95; TEMP 36.7; O2SAT 94
[2018-03-26] MEDS ORDERED: LACTATED RINGER'S 1000ML 1,000 ML IV SCH (11:00)
[2018-03-26 11:20] VITALS: BP 115/67; PULSE 98; TEMP 36.7; O2SAT 97
--- NOTE | 2018-03-26 11:31 | Anesthesiology Progress Note ---
Anesthesia Post Op Note Date & Time Mar 26, 2018 at 11:30 Vital Signs Pain Intensity: 0 Vital Signs Past 12 Hours Date Time Temp Pulse Resp B/P (MAP) Pulse Ox O2 Delivery O2 Flow Rate FiO2 03/26/18 10:50 36.7 95 18 113/66 94 Room Air 03/26/18 07:39 36.7 93 18 119/80 (93) 97 Room Air Notes Mental Status: alert / awake / arousable, participated in evaluation Pt Amnestic to Procedure: Yes Nausea / Vomiting: adequately controlled Pain: adequately controlled Airway Patency, RR, SpO2: stable & adequate BP & HR: stable & adequate Hydration State: stable & adequate Anesthetic Complications: no major complications apparent
--- NOTE | 2018-03-26 12:00 | DIAGNOSTIC IMAGING REPORT ---
CHEST ONE VIEW PORTABLE CLINICAL HISTORY: 77 years-old Male presenting with port placement. TECHNIQUE: Portable upright AP view of the chest was obtained. COMPARISON: 01/31/2012. FINDINGS: Interval placement of a left internal jugular Mediport, which terminates in the lower SVC. Atherosclerosis and mild tortuosity of the thoracic aorta. Vertex silhouette normal in size. No focal opacity. No large effusion or pneumothorax. Degenerative changes of the thoracic spine. Old fracture deformities of the right second rib. Previously noted anterolateral fractures of the left ribs not apparent. IMPRESSION: 1. Interval placement of a left IJ Mediport appropriately positioned in the SVC. No pneumothorax. Electronically signed by: Deyvi Stoll M.D. 03/26/2018 11:58 AM Dictated Date/Time: 03/26/2018 11:55 AM
== END 2018-03-26 12:39 | disposition home or self-care (01) ==
LOC: C.ACU 06:58
PROVIDERS: ATTEND Surgery
DX: C18.2 Malignant neoplasm of ascending colon (principal); E11.9 Type 2 diabetes mellitus without complications; E78.5 Hyperlipidemia, unspecified; I25.10 Atherosclerotic heart disease of native coronary artery without angina pectoris; I10 Essential (primary) hypertension; Z90.49 Acquired absence of other specified parts of digestive tract; Z96.652 Presence of left artificial knee joint; Z82.49 Family history of ischemic heart disease and other diseases of the circulatory system

== ENCOUNTER → 2018-06-20 | Outpatient (CLI) | payer OTHER, BC ==
[~2018-06-20] MED LIST changes: -AMLO-110 PO; +AMLO5TAB3 PO; -CEFAZOLIN 2000MG IV PUSH 15 ML IV SCH; -LACTATED RINGER'S 1000ML 1,000 ML IV SCH; +OPTIRAY 320 IV PRN; -TRAM-453 PO
--- NOTE | 2018-06-20 12:39 | DIAGNOSTIC IMAGING REPORT ---
CT (CHEST) THORAX WITH CT DOSE: 898.31 mGy.cm HISTORY: Cecal carcinoma X TECHNIQUE: Multiaxial CT images of the chest were performed following the intravenous administration of contrast. A dose lowering technique was utilized adhering to the principles of ALARA. COMPARISON: 03/05/2018 FINDINGS: Lungs are generally clear. Minimal bibasilar platelike atelectasis considered chronic. Improved atelectatic change right middle lobe. Several calcified granulomas unchanged. No significant hilar or mediastinal adenopathy. IMPRESSION: Improved exam with minimal bibasilar chronic plate like atelectasis. Mild chronic granulomatous change. No significant parenchymal nodularity. The above report was generated using voice recognition software. It may contain grammatical, syntax or spelling errors. Electronically signed by: Roney Frank M.D. 06/20/2018 12:38 PM Dictated Date/Time: 06/20/2018 12:27 PM
--- NOTE | 2018-06-20 12:54 | DIAGNOSTIC IMAGING REPORT ---
CT OF THE ABDOMEN AND PELVIS WITH CONTRAST CLINICAL HISTORY: Cecal carcinoma. Peritoneal metastases. COMPARISON STUDY: CT of the abdomen and pelvis March 06, 2018 TECHNIQUE: Following IV administration of 119 mL of Optiray-320, axial images of the abdomen and pelvis were obtained from the lung bases to the proximal femurs. Images were reviewed in the axial, sagittal, and coronal planes. IV contrast was administered without complication. A dose lowering technique was utilized adhering to the principles of ALARA. Oral contrast was administered. FINDINGS: Please note that the chest CT will be reported separately. No hepatic lesions are present. The adrenal glands, spleen and pancreas are unremarkable. Note is made of a 9.4 cm cyst arising from the lower pole of the left kidney. There are multiple subcentimeter bilateral renal lesions which are due to small to characterize but likely reflect cysts. No biliary or pancreatic ductal dilatation the patient status post right hemicolectomy. There is mild infiltration within the right upper quadrant extending into the mesentery. Note is made of a new 2.2 cm hypodense nodule along the right aspect of the superior mesenteric vein and uncinate process of the pancreas shown on axial image 222 of 536. There are a few tiny nodular densities located more inferiorly which measure up to 0.9 cm. Note is made of a 2.4 x 0.9 cm nodule anterior to the right aspect of the rectum on image 412. No ascites is present. There is no evidence for a bowel obstruction. No suspicious osseous lesions are noted. IMPRESSION: 1. Status post interval right hemicolectomy. New 2.2 cm hypodense nodule adjacent to the superior mesenteric vein and uncinate process of the pancreas which may represent a tumor implant or pathologic lymph node. A few additional nodular densities within the right upper quadrant likely reflect tiny peritoneal/omental implants. Right upper quadrant infiltration may reflect postsurgical change or additional tiny implants. 2.2 x 0.4 cm perirectal nodule favors an additional implant. 2. No evidence for a bowel obstruction. Electronically signed by: Chidi Vogel M.D. 06/20/2018 12:53 PM Dictated Date/Time: 06/20/2018 12:33 PM
== END | disposition home or self-care (01) ==
LOC: C.CTS 11:44
PROVIDERS: ATTEND Physician Assistant
DX: C78.6 Secondary malignant neoplasm of retroperitoneum and peritoneum (principal); C18.0 Malignant neoplasm of cecum; R91.8 Other nonspecific abnormal finding of lung field

== ENCOUNTER 2019-03-02 16:55 | Inpatient (IN) ==
[2019-03-02] MEDS ORDERED: ONDANSETRON INJ 2 MG/ML 2 ML VIAL IV STA (17:02)
[2019-03-02] MEDS: HYDROmorphone INJ 1 MG/ML SYRINGE IV PRN ×2 (17:12→18:33)
--- NOTE | 2019-03-02 17:13 | Emergency Department Note ---
Entered by Ankush Figueroa acting as a scribe for Warren Chaudhry DO History of Present Illness General Chief complaint: Abdominal Pain Stated complaint: AB PAIN, VOMITING, NAUSEA Source: patient and EMS Limitations: no limitations History of Present Illness Provider complaint: ABD Pain/Nausea vomiting Onset (ago): day(s) (5) Location: abdomen Pain Consistency: + constant Quality: + other (constipation) Associated symptoms: + nausea/vomiting and + other (Constipation) Treatments prior to arrival: other (Compazine and Zofran) The patient is a 78 year old male who presents to the Emergency Room with complaints of constant abdominal pain for the past 5 days. The patient is cur rently on Hospice Care secondary to Colon Cancer with likely metastasis, but is being discharged from Hospice Services today as he wanted to come to the ED. EMS states that the patient has been persistently nauseous for the past several days. He has received Compazine and Zofran from Hospice for his nausea, without any relief. EMS adds that the Hospice Nurse was at the patient's residency while they were there and she did state that the patient had been complaining of chest pain as well. The patient adds that he has not had a bowel movement in 5 days. His colon cancer was originally diagnosed by a small bowel obstruction. He did pass gas this morning. He denies any hematochezia or coffee ground emesis. Home Medications Home Medications Medication Instructions Recorded Confirmed Type 5-Fluorouracil 5,280 mg IV DIRECTED 01/14/19 03/02/19 History amlodipine 5 mg PO DAILY 01/14/19 03/02/19 History aspirin 81 mg PO DAILY 01/14/19 03/02/19 History atorvastatin 20 mg PO DAILY 01/14/19 03/02/19 History docusate sodium [Colace] 100 mg PO BID 01/14/19 03/02/19 History flaxseed oil 1,300 mg PO DIRECTED 01/14/19 03/02/19 History glyburide 2.5 mg PO QAM 01/14/19 03/02/19 History metformin 500 mg PO BIDM 01/14/19 03/02/19 History metoprolol tartrate 50 mg PO BID 01/14/19 03/02/19 History mirtazapine 15 mg PO DIRECTED PRN 01/14/19 03/02/19 History nitroglycerin 0.4 mg BUCCAL DIRECTED PRN 01/14/19 03/02/19 History ondansetron HCl [Zofran] 8 mg PO TID PRN 01/14/19 03/02/19 History oxycodone 5 mg PO DIRECTED PRN 01/14/19 03/02/19 History pantoprazole [Protonix] 40 mg PO DAILY 01/14/19 03/02/19 History prochlorperazine maleate 10 mg PO Q6 PRN 01/14/19 03/02/19 History tramadol 50 mg PO Q6H PRN 01/14/19 03/02/19 History valsartan 80 mg PO DAILY 01/14/19 03/02/19 History morphine 1 dose PO UD PRN 03/02/19 03/02/19 History Allergies Allergy/AdvReac Type Severity Reaction Status Date / Time clopidogrel AdvReac Unknown NAUSEA AND Verified 01/14/19 11:37 VOMITING ABD CRAMPS CHEMOTHERAPY TREATMENT Allergy Severe CHEST Uncoded 01/14/19 11:37 PAIN, THROAT SWELLING, DIFFICULTY BREATHING. Past Med/Surg History Medical History Diabetes (Chronic) Renal colic (Acute) High blood pressure (Chronic) History of colon cancer Surgical History History of colon surgery Hx of heart artery stent Family History Other Family history non-contributory Social History Preferred Language: Turkmen Communication Ability: Effective Airways Operations Specialist Required: No Beliefs That Will Affect Care: Sabianist marital status: Current Living Situation: Significant Other current occupational status: retired Other Information That Helps Us Care for You: No Feels Safe at Home: Yes Safety Concerns: Feels Safe At This Time Smoking Status: Former smoker Hx Alcohol Use: No Hx Substance Use: No Review of Systems See HPI for pertinent positives & negatives. and A total of 10 systems reviewed and were otherwise negative Physical Exam Vital Signs Vital Signs - 24 hr 03/02/19 16:58 03/02/19 17:10 03/02/19 17:30 Temperature Temperature Source Sepsis Recent Fever Within 48 Hours Sepsis New/Unexplained Change in Mental Status Sepsis Action Taken by Nursing Pulse Rate 110 H 107 H 108 H Pulse Rate [Apical] Pulse Rate [Left Finger] Pulse Rate from SpO2 Sensor 114 H 108 H 112 H Pulse Rhythm Pulse Rhythm [Apical] Pulse Rhythm [Left Finger] Pulse Strength Pulse Strength [Left Finger] Respiratory Rate 20 18 30 H Respiratory Effort / Characteristics Respiratory Depth Respiratory Pattern Blood Pressure 122/83 Blood Pressure [Left Arm] Blood Pressure Mean 96 Blood Pressure Mean [Left Arm] Blood Pressure Position Blood Pressure Position [Left Arm] Pulse Oximetry 97 97 97 Oxygen Delivery Method Oxygen Flow Rate 03/02/19 17:38 03/02/19 18:31 03/02/19 18:32 Temperature 36.3 C L Temperature Source Oral Sepsis Recent Fever Within 48 Hours No Sepsis New/Unexplained Change in Mental Status No Sepsis Action Taken by Nursing No Action Required Pulse Rate 63 108 H 110 H Pulse Rate [Apical] Pulse Rate [Left Finger] Pulse Rate from SpO2 Sensor 97 H 110 H Pulse Rhythm Regular Pulse Rhythm [Apical] Pulse Rhythm [Left Finger] Pulse Strength Normal Pulse Strength [Left Finger] Respiratory Rate 18 16 28 H Respiratory Effort / Characteristics Non-Labored Respiratory Depth Normal Respiratory Pattern Blood Pressure 122/83 138/97 Blood Pressure [Left Arm] Blood Pressure Mean 96 110 Blood Pressure Mean [Left Arm] Blood Pressure Position Lying Blood Pressure Position [Left Arm] Pulse Oximetry 98 99 98 Oxygen Delivery Method Room Air Oxygen Flow Rate 03/02/19 18:35 03/02/19 19:00 03/02/19 19:30 Temperature Temperature Source Sepsis Recent Fever Within 48 Hours Sepsis New/Unexplained Change in Mental Status Sepsis Action Taken by Nursing Pulse Rate 103 H 110 H Pulse Rate [Apical] 101 H Pulse Rate [Left Finger] Pulse Rate from SpO2 Sensor 98 H 90 Pulse Rhythm Pulse Rhythm [Apical] Regular Pulse Rhythm [Left Finger] Pulse Strength Pulse Strength [Left Finger] Respiratory Rate 14 26 H 15 Respiratory Effort / Characteristics Non-Labored Respiratory Depth Normal Respiratory Pattern Blood Pressure Blood Pressure [Left Arm] 138/97 Blood Pressure Mean Blood Pressure Mean [Left Arm] 110 Blood Pressure Position Blood Pressure Position [Left Arm] Lying Pulse Oximetry 98 98 96 Oxygen Delivery Method Nasal Cannula Oxygen Flow Rate 2 03/02/19 20:00 03/02/19 20:17 03/02/19 20:30 Temperature Temperature Source Sepsis Recent Fever Within 48 Hours Sepsis New/Unexplained Change in Mental Status Sepsis Action Taken by Nursing Pulse Rate 103 H 107 H Pulse Rate [Apical] Pulse Rate [Left Finger] Pulse Rate from SpO2 Sensor 102 H 103 H Pulse Rhythm Pulse Rhythm [Apical] Pulse Rhythm [Left Finger] Pulse Strength Pulse Strength [Left Finger] Respiratory Rate 10 L 19 Respiratory Effort / Characteristics Respiratory Depth Respiratory Pattern Blood Pressure Blood Pressure [Left Arm] Blood Pressure Mean Blood Pressure Mean [Left Arm] Blood Pressure Position Blood Pressure Position [Left Arm] Pulse Oximetry 97 89 L Oxygen Delivery Method Nasal Cannula Oxygen Flow Rate 2 03/02/19 21:00 03/02/19 21:08 03/02/19 21:43 Temperature 36.4 C L Temperature Source Oral Sepsis Recent Fever Within 48 Hours Sepsis New/Unexplained Change in Mental Status Sepsis Action Taken by Nursing Pulse Rate 109 H 104 H Pulse Rate [Apical] Pulse Rate [Left Finger] 105 H Pulse Rate from SpO2 Sensor 102 H Pulse Rhythm Pulse Rhythm [Apical] Pulse Rhythm [Left Finger] Pulse Strength Pulse Strength [Left Finger] Respiratory Rate 16 19 18 Respiratory Effort / Characteristics Respiratory Depth Respiratory Pattern Blood Pressure 138/95 Blood Pressure [Left Arm] 133/94 Blood Pressure Mean Blood Pressure Mean [Left Arm] 107 Blood Pressure Position Blood Pressure Position [Left Arm] Lying Pulse Oximetry 86 L 93 93 Oxygen Delivery Method Room Air Room Air Oxygen Flow Rate 03/02/19 23:10 03/03/19 00:20 03/03/19 05:20 Temperature 36.4 C L 36.8 C Temperature Source Axillary Oral Sepsis Recent Fever Within 48 Hours Sepsis New/Unexplained Change in Mental Status Sepsis Action Taken by Nursing Pulse Rate Pulse Rate [Apical] Pulse Rate [Left Finger] 102 H 105 H Pulse Rate from SpO2 Sensor Pulse Rhythm Pulse Rhythm [Apical] Pulse Rhythm [Left Finger] Regular Pulse Strength Pulse Strength [Left Finger] Normal Respiratory Rate 18 18 Respiratory Effort / Characteristics Non-Labored Spontaneous Non-Labored Spontaneous Respiratory Depth Normal Normal Respiratory Pattern Regular Regular Blood Pressure Blood Pressure [Left Arm] 133/96 139/87 Blood Pressure Mean Blood Pressure Mean [Left Arm] 108 104 Blood Pressure Position Blood Pressure Position [Left Arm] Lying Lying Pulse Oximetry 93 97 Oxygen Delivery Method Room Air Room Air Room Air Oxygen Flow Rate 03/03/19 08:01 03/03/19 11:08 Temperature 36.6 C 36.9 C Temperature Source Oral Oral Sepsis Recent Fever Within 48 Hours Sepsis New/Unexplained Change in Mental Status Sepsis Action Taken by Nursing Pulse Rate Pulse Rate [Apical] Pulse Rate [Left Finger] 95 H 103 H Pulse Rate from SpO2 Sensor Pulse Rhythm Pulse Rhythm [Apical] Pulse Rhythm [Left Finger] Pulse Strength Pulse Strength [Left Finger] Respiratory Rate 16 16 Respiratory Effort / Characteristics Respiratory Depth Normal Normal Respiratory Pattern Blood Pressure Blood Pressure [Left Arm] 127/87 130/84 Blood Pressure Mean Blood Pressure Mean [Left Arm] 100 99 Blood Pressure Position Blood Pressure Position [Left Arm] Lying Lying Pulse Oximetry 96 96 Oxygen Delivery Method Room Air Oxygen Flow Rate GENERAL: Patient is awake and alert. He is very anxious appearing and appears to be uncomfortable. EYES: The conjunctivae are clear. The pupils are round and reactive. EARS, NOSE, MOUTH AND THROAT: The nose is without any evidence of any deformity. Mucous membranes are moist tongue is midline NECK: The neck is nontender and supple. RESPIRATORY: Normal respiratory effort is noted there is no evidence of wheezing rhonchi or rales CARDIOVASCULAR: Regular rate and rhythm noted there no murmurs rubs or gallops normal S1 normal S2 GASTROINTESTINAL: The abdomen is moderately distended and diffusely tender. There is a mass in the right side of the abdomen. This may represent severe constipation but given the patient's history this could represent a colonic mass. MUSCULOSKELETAL/EXTREMITIES: There is no evidence of gross deformity full range of motion is noted in the hips and shoulders SKIN: There is no obvious evidence of any rash. Trace pedal edema was noted. Skin was cold and dry. NEUROLOGIC: Patient is awake alert and oriented x3. Course 165: The patient was evaluated in room C8, and a complete history and physical examination were performed. 1822: I checked on the patient. He is feeling better. 1919: I updated the patient. He is feeling well. 1928: I reviewed the patient's case with Dr. Sams [facility] Hospitalist. He will evaluate the patient for further management. Administered Medications Heparin Sodium (Porcine) (Heparin Sodium (Porcine)) 5,000 units SQ Q12 RADHIKA Stop: 04/01/19 21:41 Last Admin: 03/03/19 08:22 Dose: 5,000 units Documented by: [id number] Cosigned by: [id number] Admin: 03/02/19 22:05 Dose: 5,000 units Documented by: [id number] Cosigned by: [id number] Potassium Chloride/Sodium Chloride (Normal Saline W/20 Meq Kcl) 20 meq in 1,000 mls @ 100 mls/hr IV .Q10H RADHIKA Stop: 04/01/19 21:29 Last Admin: 03/03/19 08:08 Dose: 100 mls/hr Documented by: [id number] Infusion: 03/03/19 08:07 Dose: 0 mls/hr Documented by: [id number] Admin: 03/02/19 21:58 Dose: 100 mls/hr Documented by: [id number] Famotidine 20 mg/ Syringe 5 mls @ 2.5 mls/min IV Q12H RADHIKA Stop: 04/01/19 21:59 Last Admin: 03/03/19 11:46 Dose: 2.5 mls/min Documented by: [id number] Admin: 03/02/19 21:58 Dose: 2.5 mls/min Documented by: [id number] Discontinued Medications Hydromorphone HCl (Dilaudid) 1 mg IV Q15M PRN PRN Reason: Pain Stop: 03/16/19 17:01 Last Admin: 03/02/19 18:33 Dose: 1 mg Documented by: [id number] Admin: 03/02/19 17:12 Dose: 1 mg Documented by: [id number] Sodium Chloride (Nss 1000ml) 1,000 mls @ 999 mls/hr IV .Q1H1M RADHIKA Stop: 03/02/19 18:15 Last Infusion: 03/02/19 18:26 Dose: 0 mls/hr Documented by: [id number] Admin: 03/02/19 17:34 Dose: 999 mls/hr Documented by: [id number] Ondansetron HCl (Zofran) 4 mg IV NOW STA Stop: 03/02/19 17:03 Last Admin: 03/02/19 17:12 Dose: 4 mg Documented by: [id number] Medical Decision Making Differential Diagnosis Differential diagnosis: Etiologies such as biliary colic, cholecystitis, hepatitis, pancreatitis, cardiac disease, pancreatitis, gastritis, peptic ulcer disease, appendicitis, cystitis, diverticulitis, mesenteric ischemia, inflammatory bowel disease, ile us, bowel obstruction, testicular torsion, aortic pathology, shingles, as well as others were considered. Medical Records Attestation: I reviewed the patient's medical records. Home Medications Current Medication List: was personally reviewed by me Laboratory Data Attestation: I reviewed the patient's lab results. Result diagrams: 03/02/19 17:28 03/02/19 17:28 Lab Results 03/02/19 03/02/19 03/02/19 Range/Units 17:28 17:28 17:28 WBC 5.85 (4.8-10.8) K/uL RBC 4.28 L (4.7-6.1) M/uL Hgb 13.7 L (14.0-18.0) g/dL Hct 40.3 L (42-52) % MCV 94.2 (80-100) fL MCH 32.0 (25-34) pg MCHC 34.0 (32-36) g/dL RDW Std Deviation 51.9 H (36.4-46.3) fL RDW Coeff of Frida 15.2 H (11.5-14.5) % Plt Count 269 (130-400) K/uL MPV 8.5 (7.4-10.4) fL Immature Gran % (Auto) 0.2 % Neut % (Auto) 61.8 % Lymph % (Auto) 20.7 % Izard % (Auto) 16.4 % Eos % (Auto) 0.7 % Baso % (Auto) 0.2 % Immature Gran # (Auto) 0.01 (0.00-0.02) K/uL Neut # (Auto) 3.62 (1.4-6.5) K/uL Lymph # (Auto) 1.21 (1.2-3.4) K/uL Izard # (Auto) 0.96 H (0.11-0.59) K/uL Eos # (Auto) 0.04 (0-0.5) K/uL Baso # (Auto) 0.01 (0-0.2) K/uL PT 11.1 (9.0-12.0) Seconds INR 1.1 (0.9-1.1) APTT 23.7 (21.0-31.0) Seconds PTT Ratio 0.9 Sodium 138 (136-145) mmol/L Potassium 3.8 (3.5-5.1) mmol/L Chloride 98 (98-107) mmol/L Carbon Dioxide 30 (21-32) mmol/L Anion Gap 10.0 (3-11) BUN 38 H (7-18) mg/dl Creatinine 1.00 (0.6-1.4) mg/dl Est Cr Clr Drug Dosing Not Reportable Est GFR ( Amer) 83.2 Est GFR (Non-Af Amer) 71.8 BUN/Creatinine Ratio 38.4 H (10-20) Glucose 163 H (70-99) mg/dl Calcium 10.1 (8.5-10.1) mg/dl Total Bilirubin 0.6 (0.2-1) mg/dl AST 18 (15-37) U/L ALT 18 (12-78) U/L Alkaline Phosphatase 99 (45-117) U/L Total Protein 7.9 (6.4-8.2) gm/dl Albumin 3.0 L (3.4-5.0) gm/dl Globulin 4.9 H (2.5-4.0) gm/dl Albumin/Globulin Ratio 0.6 L (0.9-2) Lipase 143 (73-393) U/L Imaging Data Attestation: I personally reviewed and interpreted this imaging study as follows: Radiologist's Impression: XR chest 1V portable HISTORY: 78 years-old Male CP acute atypical chest pain with shortness of breath COMPARISON: Chest radiograph 01/18/2018, CTA chest 01/14/2018 TECHNIQUE: Portable AP view of the chest FINDINGS: Cardiomediastinal and hilar silhouettes are unchanged. Stable positioning of the left pectoral [id number] catheter. Scattered calcified granulomata. There is no pneumothorax, pleural effusion, focal airspace consolidation or overt pulmonary edema. Coronary arterial stent graft noted. Degenerative changes of the shoulders and spine. IMPRESSION: No acute process. The above report was generated using voice recognition software. It may contain grammatical, syntax or spelling errors. Electronically signed by: Clint Rodriguez M.D. 03/02/2019 5:44 PM ABDOMEN AND PELVIS CT WITHOUT CONTRAST CT DOSE: 426.30 mGy.cm HISTORY: Acute abdominal pain with vomiting. History of rectal carcinoma vo miting TECHNIQUE: Multiaxial CT images of the abdomen and pelvis were performed without contrast. A dose lowering technique was utilized adhering to the principles of ALARA. COMPARISON STUDY: CT abdomen and pelvis 12/17/2018. FINDINGS: Small right pleural effusion, slightly increased in size from comparison. Subsegmental bibasilar opacities suggest atelectasis. Scattered calcified granulomata about the lung bases. Linear 8 mm solid nodule of the basal left lower lobe appears unchanged. 4 mm solid nodule of the posterior basal segment right lower lobe on image 53 series 3 appears unchanged. There is no pneumatosis or pneumoperitoneum. The imaged inferior cardiac chambers are mildly enlarged with small pericardial effusion. Coronary arterial calcifications are noted. Prominent cardiophrenic lymph nodes are redemonstrated, not significantly changed measuring up to 2.0 cm on the right. Indeterminate 1.4 cm hypodense lesion of the hepatic dome, previously measured 1.2 cm no additional hepatic lesions identified. Spleen, and pancreas appear unremarkable. Mild thickening about the bilateral adrenal glands. Mild gallbladder distention without cholelithiasis. Mild nonspecific bilateral perinephric stranding. 7.3 cm cyst of the inferior pole left kidney. No renal or ureteral calculi identified. Layering calcifications about the posterior left urinary bladder. Prostamegaly. Extensive calcification of the abdominal aorta without aneurysm. Large 1.5 x 1.1 cm retroperitoneal lymph node on image 112 series 3 has not significantly changed. Moderate wall thickening about the distal esophagus. Trace abdominopelvic ascites. Moderate distention of the stomach with narrowing at the level the proximal duodenum. No evidence of small bowel obstruction. Colonic diverticulosis. Postoperative changes from ileocecectomy with ileocolic anastomosis. Multiple tablets are noted at the anastomotic site. Extensive peritoneal carcinomatosis redemonstrated with soft tissue nodules of the right lower quadrant mesentery noted measuring up to 5.3 cm on image 229 series 3, progressed from prior. Carcinomatosis invades the right perinephric space, also unchanged. Progressive carcinomatosis about the sigmoid colon with widespread serosal implants about the large bowel. Soft tissues are unremarkable. Advanced degenerative changes about the pubic symphysis. Demineralized appearance of the bones. Advanced degenerative changes of the lower lumbar spine. No new bony lesions identified. IMPRESSION: 1. Limited study without the use of IV contrast. 2. Postoperative changes from ileocecectomy. No bowel obstruction. 3. Moderate gastric distention with narrowing at the level of the proximal duo denum, possibly secondary to adjacent peritoneal tethering with carcinomatosis. Correlate clinically to exclude gastric outlet obstruction. 4. Progressive peritoneal carcinomatosis with trace abdominopelvic ascites. 5. Slightly increased size of the mass about the right hepatic lobe suggestive of metastasis, now measuring 1.4 cm. 6. Slightly progressed retroperitoneal adenopathy. 7. Small right pleural effusion is unchanged. 8. Additional findings as above. Electronically signed by: Clint Rodriguez M.D. 03/02/2019 6:35 PM ECG Data Attestation: I personally reviewed and interpreted this ECG as follows: Indication: abdominal pain Rate (beats per minute): 113 Rhythm: sinus tachycardia Findings: no ST depression, no ST elevation and no ectopy Blood Pressure Blood Pressure Findings: Elevated blood pressure Blood Pressure Disposition: further management by hospitalist MDM Narrative The patient is a 78-year-old male who presented to the emergency department for an evaluation of abdominal pain. The patient has a history of metastatic colon cancer. He was on hospice but was unable to take any of his medications for pain or nausea today because of nausea and vomiting. The patient's physical exam was consistent with significant tenderness. The patient was treated with IV fluids IV pain medication and IV antiemetics. On subsequent reevaluation he was feeling much better. I discussed the patient's laboratory and radiographic studies with him. I discussed his case with the on-call [facility] hospitalist group. They have agreed to evaluate the patient in the emergency department for further management and disposition. Impression & Plan Gastric outlet obstruction, Colonic mass, Pain, Nausea, vomiting and diarrhea Discharge Plan Visit Data *Final* Discharge Date/Time: 03/02/19 21:08 Chief Complaint: Abdominal Pain Stated Complaint: AB PAIN, VOMITING, NAUSEA ED Provider: Warren Chaudhry Discharge Problem: Gastric outlet obstruction, Colonic mass, Pain, Nausea, vomiting and diarrhea Patient Disposition: Admitted As Inpatient Discharge Instructions Interventions: ED Discharge Assessment Last Done: 03/02/19 21:08 The scribe's documentation has been prepared under my direction and personally reviewed by me in its entirety. I confirm that the note above accurately reflects all work, treatment, procedures, and medical decision making performed by me.
[2019-03-02] MEDS ORDERED: SODIUM CHLORIDE 0.9% 1000ML 1,000 ML IV SCH (17:15)
[2019-03-02 17:44] LABS: Basophils # (auto) 0.01 K/uL (0-0.2); Basophils % (auto) 0.2 %; Eosinophils # (auto) 0.04 K/uL (0-0.5); Eosinophils % (auto) 0.7 %; Hematocrit (blood only) 40.3 % (42-52); Hemoglobin 13.7 g/dL (14.0-18.0); Immature Granulocytes # (auto) 0.01 K/uL (0.00-0.02); Immature Granulocytes % (auto) 0.2 %; Lymphocytes # (auto) 1.21 K/uL (1.2-3.4); Lymphocytes % (auto) 20.7 %; Mean Corpuscular Volume 94.2 fL (80-100); Mean Platelet Volume 8.5 fL (7.4-10.4); Monocytes # (auto) 0.96 K/uL (0.11-0.59); Monocytes % (auto) 16.4 %; Neutrophils # (auto) 3.62 K/uL (1.4-6.5); Neutrophils % (auto) 61.8 %; Platelet Count 269 K/uL (130-400); RDW Coefficient of Variation 15.2 % (11.5-14.5); RDW Standard Deviation 51.9 fL (36.4-46.3); Red Blood Count 4.28 M/uL (4.7-6.1); White Blood Count 5.85 K/uL (4.8-10.8)
--- NOTE | 2019-03-02 17:46 | XRay Report ---
XR chest 1V portable HISTORY: 78 years-old Male CP acute atypical chest pain with shortness of breath COMPARISON: Chest radiograph 01/18/2018, CTA chest 01/14/2018 TECHNIQUE: Portable AP view of the chest FINDINGS: Cardiomediastinal and hilar silhouettes are unchanged. Stable positioning of the left pectoral Infuse -a-Port catheter. Scattered calcified granulomata. There is no pneumothorax, pleural effusion, focal airspace consolidation or overt pulmonary edema. Coronary arterial stent graft noted. Degenerative ch anges of the shoulders and spine. IMPRESSION: No acute process. The above report was generated using voice recognition software. It may contain grammatical, syntax o r spelling errors. Electronically signed by: Clint Rodriguez M.D. 03/02/2019 5:44 PM
[2019-03-02 18:01] LABS: Alanine Aminotransferase 18 U/L (12-78); Aspartate Aminotransferase 18 U/L (15-37); BUN Creatinine Ratio 38.4 (10-20); Blood Urea Nitrogen 38 mg/dl (7-18); Calcium 10.1 mg/dl (8.5-10.1); Carbon Dioxide 30 mmol/L (21-32); Chloride 98 mmol/L (98-107); Est GFR (African American) 83.2; Est GFR (Non-African American) 71.8; Glucose 163 mg/dl (70-99); Potassium 3.8 mmol/L (3.5-5.1); Sodium 138 mmol/L (136-145)
[2019-03-02 18:02] LABS: INR 1.1 (0.9-1.1); Partial Thromboplastin Ratio 0.9; Partial Thromboplastin Time 23.7 Seconds (21.0-31.0); Prothrombin Time 11.1 Seconds (9.0-12.0)
[2019-03-02 18:03] LABS: Albumin Globulin Ratio 0.6 (0.9-2); Alkaline Phosphatase 99 U/L (45-117); Bilirubin,Total 0.6 mg/dl (0.2-1); Globulin 4.9 gm/dl (2.5-4.0); Total Protein 7.9 gm/dl (6.4-8.2)
--- NOTE | 2019-03-02 18:37 | CT Scan Report ---
ABDOMEN AND PELVIS CT WITHOUT CONTRAST CT DOSE: 426.30 mGy.cm HISTORY: Acute abdominal pain with vomiting. History of rectal carcinoma vomiting TECHNIQUE: Multiaxial CT images of the abdomen and pelvis were performed without contrast. A dose lo wering technique was utilized adhering to the principles of ALARA. COMPARISON STUDY: CT abdomen and pelvis 12/17/2018. FINDINGS: Small right pleural effusion, slightly increased in size from comparison. Subsegmental bibasilar opa cities suggest atelectasis. Scattered calcified granulomata about the lung bases. Linear 8 mm solid n odule of the basal left lower lobe appears unchanged. 4 mm solid nodule of the posterior basal segmen t right lower lobe on image 53 series 3 appears unchanged. There is no pneumatosis or pneumoperitoneu m. The imaged inferior cardiac chambers are mildly enlarged with small pericardial effusion. Coronary arterial calcifications are noted. Prominent cardiophrenic lymph nodes are redemonstrated, not signi ficantly changed measuring up to 2.0 cm on the right. Indeterminate 1.4 cm hypodense lesion of the hepatic dome, previously measured 1.2 cm no additional h epatic lesions identified. Spleen, and pancreas appear unremarkable. Mild thickening about the bilate ral adrenal glands. Mild gallbladder distention without cholelithiasis. Mild nonspecific bilateral pe rinephric stranding. 7.3 cm cyst of the inferior pole left kidney. No renal or ureteral calculi ident ified. Layering calcifications about the posterior left urinary bladder. Prostamegaly. Extensive calc ification of the abdominal aorta without aneurysm. Large 1.5 x 1.1 cm retroperitoneal lymph node on i mage 112 series 3 has not significantly changed. Moderate wall thickening about the distal esophagus. Trace abdominopelvic ascites. Moderate distentio n of the stomach with narrowing at the level the proximal duodenum. No evidence of small bowel obstru ction. Colonic diverticulosis. Postoperative changes from ileocecectomy with ileocolic anastomosis. M ultiple tablets are noted at the anastomotic site. Extensive peritoneal carcinomatosis redemonstrated with soft tissue nodules of the right lower quadrant mesentery noted measuring up to 5.3 cm on image 229 series 3, progressed from prior. Carcinomatosis invades the right perinephric space, also unchan ged. Progressive carcinomatosis about the sigmoid colon with widespread serosal implants about the la rge bowel. Soft tissues are unremarkable. Advanced degenerative changes about the pubic symphysis. De mineralized appearance of the bones. Advanced degenerative changes of the lower lumbar spine. No new bony lesions identified. IMPRESSION: 1. Limited study without the use of IV contrast. 2. Postoperative changes from ileocecectomy. No bowel obstruction. 3. Moderate gastric distention with narrowing at the level of the proximal duodenum, possibly seconda ry to adjacent peritoneal tethering with carcinomatosis. Correlate clinically to exclude gastric outl et obstruction. 4. Progressive peritoneal carcinomatosis with trace abdominopelvic ascites. 5. Slightly increased size of the mass about the right hepatic lobe suggestive of metastasis, now jean-pierre suring 1.4 cm. 6. Slightly progressed retroperitoneal adenopathy. 7. Small right pleural effusion is unchanged. 8. Additional findings as above. Electronically signed by: Clint Rodriguez M.D. 03/02/2019 6:35 PM
[2019-03-02] MEDS ORDERED: PROCHLORPERAZINE 10 MG in SYRINGE 8 ML IV PRN (20:52)
[2019-03-02] MEDS ORDERED: LORazepam 1 MG/2 ML VIAL IV PRN (20:53)
[2019-03-02] MEDS ORDERED: DiphenhydrAMINE HCL 50 MG/ML VIAL IV PRN (20:57)
--- NOTE | 2019-03-02 21:09 | History & Physical Report ---
Date of Service March 02, 2019 Assessment & Plan (1) Gastric outlet obstruction: Gastric outlet obstruction/secondary to progressive carcinomatosis and traction around the duodenum-- NG tube low intermittent suction. NPO except Roxanol. Zofran 4 mg IV every 6 hours as needed. Compazine 10 mg IV every 6 hours as needed Pepcid 20 mg IV twice daily. NSS + KCl 20 mEq at 100 mils per hour. Lorazepam 1 mg IV every 4 hours as needed. Benadryl 25 mg IV every 4 hours as needed. Acetaminophen 1000 mg IV every 8 hours as needed mild pain or temperature. Continue Roxanol as needed for severe pain The patient had been as noted above on hospice before this hospitalization. data services developer will be consulted and discussions will need to be made with family regarding future directions depending upon how he responds to attempted decompression. We will consult Dr. Rocha when he returns on Monday and it can be discussed then the continuance of NG tube versus attempts to bridge any obstruction with a stent. Present on Admission?: Yes (2) Colonic mass: As above. Present on Admission?: Yes (3) Nausea, vomiting and diarrhea: As above. Present on Admission?: Yes (4) Diabetes: Hold glyburide and metformin. Placed on Accu-Cheks before meals and at bedtime with NovoLog coverage per scale Present on Admission?: Yes (5) High blood pressure: Will hold amlodipine, aspirin, metoprolol tartrate and valsartan. Suspect his blood pressure will remain adequately controlled or low off of these meds. If needed, will have available IV hydralazine to use as needed Present on Admission?: Yes History of Present Illness Chief Complaint: The patient had been at home with home hospice, however, he had intractable nausea and vomiting, hospice was discontinued, and the patient was brought to emergency department for assessment. Primary Care Provider: John Ferraro MD The patient is a 78-year-old male who is status post ileocecectomy on 03/26/18 for metastatic colon cancer. He has been following with Dr. Chaudhry from [facility] oncology, and has been on hospice at home, until today, when he developed intractable nausea and vomiting, hospice was discontinued, and he was brought to the emergency department for assessment. In the emergency department workup included imaging and laboratory studies. CT of abdomen and pelvis revealed no bowel obstruction but did reveal moderate gastric distention with narrowing at the level of the proximal duodenum, possibly secondary to adjacent peritoneal tethering with carcinomatosis. Clinical correlation was suggested to exclude gastric outlet obstruction. There is also progressive peritoneal carcinomatosis with trace abdominopelvic ascites. Decision was made to admit the patient and to place NG tube to low intermittent suction in the ED for decompression. GI Dr. Mcgovern, who was covering for Dr. Rocha, agreed that the above should be done, and later can be determined by Dr. Rocha if any more significant treatment should be performed. Allergies Allergy/AdvReac Type Severity Reaction Status Date / Time clopidogrel AdvReac Unknown NAUSEA AND Verified 01/14/19 11:37 VOMITING ABD CRAMPS CHEMOTHERAPY TREATMENT Allergy Severe CHEST Uncoded 01/14/19 11:37 PAIN, THROAT SWELLING, DIFFICULTY BREATHING. Home Medications Home Medications Medication Instructions Recorded Confirmed Type 5-Fluorouracil 5,280 mg IV DIRECTED 01/14/19 03/02/19 History amlodipine 5 mg PO DAILY 01/14/19 03/02/19 History aspirin 81 mg PO DAILY 01/14/19 03/02/19 History atorvastatin 20 mg PO DAILY 01/14/19 03/02/19 History docusate sodium [Colace] 100 mg PO BID 01/14/19 03/02/19 History flaxseed oil 1,300 mg PO DIRECTED 01/14/19 03/02/19 History glyburide 2.5 mg PO QAM 01/14/19 03/02/19 History metformin 500 mg PO BIDM 01/14/19 03/02/19 History metoprolol tartrate 50 mg PO BID 01/14/19 03/02/19 History mirtazapine 15 mg PO DIRECTED PRN 01/14/19 03/02/19 History nitroglycerin 0.4 mg BUCCAL DIRECTED PRN 01/14/19 03/02/19 History ondansetron HCl [Zofran] 8 mg PO TID PRN 01/14/19 03/02/19 History oxycodone 5 mg PO DIRECTED PRN 01/14/19 03/02/19 History pantoprazole [Protonix] 40 mg PO DAILY 01/14/19 03/02/19 History prochlorperazine maleate 10 mg PO Q6 PRN 01/14/19 03/02/19 History tramadol 50 mg PO Q6H PRN 01/14/19 03/02/19 History valsartan 80 mg PO DAILY 01/14/19 03/02/19 History morphine 1 dose PO UD PRN 03/02/19 03/02/19 History Past Med/Surg History Medical History Diabetes (Chronic) Renal colic (Acute) High blood pressure (Chronic) History of colon cancer Surgical History History of colon surgery Hx of heart artery stent Family History Other Family history non-contributory Social History Preferred Language: Yi Communication Ability: Effective Community Development Technician Required: No Beliefs That Will Affect Care: Anglican marital status: Current Living Situation: Significant Other current occupational status: retired Other Information That Helps Us Care for You: No Feels Safe at Home: Yes Safety Concerns: Feels Safe At This Time Smoking Status: Former smoker Hx Alcohol Use: No Hx Substance Use: No Review of Systems The patient denies lpitations, lower extremity swelling, sore throat, fevers, chills, sweats, diarrhea , constipation, blood in urine or stool, dysuria, urinary frequency or urgency, lightheadedness, dizziness, headache, loss of consciousness, rash, abnormal bruising or bleeding, imbalance, focal weakness, numbness or tingling in arms or legs, generalized arthralgias or myalgias, back or neck pain, or night sweats. The review of systems is otherwise negative other than for that already noted above, and at least 10 systems have been reviewed. Physical Exam Vital Signs (Past 24 Hours): Last Vital Signs Temp 36.3 C L 03/02/19 17:38 Pulse 109 H 03/02/19 21:00 Resp 16 03/02/19 21:00 BP 138/97 03/02/19 18:35 Pulse Ox 86 L 03/02/19 21:00 Physical Exam: The patient is awake, oriented 3, mildly lethargic, normocephalic and atraumatic, lying in bed and in no acute distress. HEENT--PERRL, EOMI, mucous membranes and oropharynx dry. Neck--supple. No JVD. No bruits. Thyroid normal, trachea midline, no adenopathy. Heart--normal S1 and S2. No murmurs, rubs or gallops. Lungs--decreased breath sounds bilaterally but clear Abdomen-decreased bowel sounds and soft. Mild generalized tenderness. Mildly distended. Extremities--no cyanosis or clubbing. No edema. There are good distal pulses b/l. Dermatologic--normal skin turgor, normal color, no abnormal lymph nodes, no rash. Neurologic--cranial nerves II through XII grossly intact. Rheumatologic--normal range of motion. Psychiatric--normal affect. Results & Data Laboratory Results Laboratory Results WBC 5.85 K/uL (4.8-10.8) 03/02/19 17:28 RBC 4.28 M/uL (4.7-6.1) L 03/02/19 17:28 Hgb 13.7 g/dL (14.0-18.0) L 03/02/19 17:28 Hct 40.3 % (42-52) L 03/02/19 17:28 MCV 94.2 fL (80-100) 03/02/19 17:28 MCH 32.0 pg (25-34) 03/02/19 17:28 MCHC 34.0 g/dL (32-36) 03/02/19 17:28 RDW Std Deviation 51.9 fL (36.4-46.3) H 03/02/19 17:28 RDW Coeff of Frida 15.2 % (11.5-14.5) H 03/02/19 17:28 Plt Count 269 K/uL (130-400) 03/02/19 17:28 MPV 8.5 fL (7.4-10.4) 03/02/19 17:28 Immature Gran % (Auto) 0.2 % 03/02/19 17:28 Neut % (Auto) 61.8 % 03/02/19 17:28 Lymph % (Auto) 20.7 % 03/02/19 17:28 [place] % (Auto) 16.4 % 03/02/19 17:28 Eos % (Auto) 0.7 % 03/02/19 17:28 Baso % (Auto) 0.2 % 03/02/19 17:28 Immature Gran # (Auto) 0.01 K/uL (0.00-0.02) 03/02/19 17:28 Neut # (Auto) 3.62 K/uL (1.4-6.5) 03/02/19 17:28 Lymph # (Auto) 1.21 K/uL (1.2-3.4) 03/02/19 17:28 [place] # (Auto) 0.96 K/uL (0.11-0.59) H 03/02/19 17:28 Eos # (Auto) 0.04 K/uL (0-0.5) 03/02/19 17:28 Baso # (Auto) 0.01 K/uL (0-0.2) 03/02/19 17:28 PT 11.1 Seconds (9.0-12.0) 03/02/19 17:28 INR 1.1 (0.9-1.1) 03/02/19 17:28 APTT 23.7 Seconds (21.0-31.0) 03/02/19 17:28 PTT Ratio 0.9 03/02/19 17:28 Sodium 138 mmol/L (136-145) 03/02/19 17:28 Potassium 3.8 mmol/L (3.5-5.1) 03/02/19 17:28 Chloride 98 mmol/L (98-107) 03/02/19 17:28 Carbon Dioxide 30 mmol/L (21-32) 03/02/19 17:28 Anion Gap 10.0 (3-11) 03/02/19 17:28 BUN 38 mg/dl (7-18) H 03/02/19 17:28 Creatinine 1.00 mg/dl (0.6-1.4) 03/02/19 17:28 Est Cr Clr Drug Dosing Not Reportable 03/02/19 17:28 Est GFR ( Amer) 83.2 03/02/19 17:28 Est GFR (Non-Af Amer) 71.8 03/02/19 17:28 BUN/Creatinine Ratio 38.4 (10-20) H 03/02/19 17:28 Glucose 163 mg/dl (70-99) H 03/02/19 17:28 Calcium 10.1 mg/dl (8.5-10.1) 03/02/19 17:28 Total Bilirubin 0.6 mg/dl (0.2-1) 03/02/19 17:28 AST 18 U/L (15-37) 03/02/19 17:28 ALT 18 U/L (12-78) 03/02/19 17:28 Alkaline Phosphatase 99 U/L (45-117) 03/02/19 17:28 Total Protein 7.9 gm/dl (6.4-8.2) 03/02/19 17:28 Albumin 3.0 gm/dl (3.4-5.0) L 03/02/19 17:28 Globulin 4.9 gm/dl (2.5-4.0) H 03/02/19 17:28 Albumin/Globulin Ratio 0.6 (0.9-2) L 03/02/19 17:28 Lipase 143 U/L (73-393) 03/02/19 17:28 Diagnostic Findings [facility], [place] [phone] CT Scan Report Patient: KATELYNN BLEVINS Date: 03/02/19 MR#: [id number]: [address] Acct ID:[id number]: [address] Date: 1940[facility] Zip: [place] [address] Age: 78Location: ED Sex: M Room/Bed: Att Phy: Diagnosis: AB PAIN, VOMITING, NAUSEA Snow Phy: John De Los Santos M.D.Service Date: 03/02/19 Fam Phy: Arnulfo Chaudhry MDInterpreting Phy: Ron Rodriguez Admit Phy: Ordering Phy: Warren Chaudhry DO cc: ~ ABDOMEN AND PELVIS CT WITHOUT CONTRAST CT DOSE: 426.30 mGy.cm HISTORY: Acute abdominal pain with vomiting. History of rectal carcinoma vomiting TECHNIQUE: Multiaxial CT images of the abdomen and pelvis were performed without contrast. A dose lowering technique was utilized adhering to the principles of ALARA. COMPARISON STUDY: CT abdomen and pelvis 12/17/2018. FINDINGS: Small right pleural effusion, slightly increased in size from comparison. Subsegmental bibasilar opacities suggest atelectasis. Scattered calcified granulomata about the lung bases. Linear 8 mm solid nodule of the basal left lower lobe appears unchanged. 4 mm solid nodule of the posterior basal segment right lower lobe on image 53 series 3 appears unchanged. There is no pneumatosis or pneumoperitoneum. The imaged inferior cardiac chambers are mildly enlarged with small pericardial effusion. Coronary arterial calcifications are noted. Prominent cardiophrenic lymph nodes are redemonstrated, not significantly changed measuring up to 2.0 cm on the right. Indeterminate 1.4 cm hypodense lesion of the hepatic dome, previously measured 1.2 cm no additional hepatic lesions identified. Spleen, and pancreas appear unremarkable. Mild thickening about the bilateral adrenal glands. Mild gallbladder distention without cholelithiasis. Mild nonspecific bilateral perinephric stranding. 7.3 cm cyst of the inferior pole left kidney. No renal or ureteral calculi identified. Layering calcifications about the posterior left urinary bladder. Prostamegaly. Extensive calcification of the abdominal aorta without aneurysm. Large 1.5 x 1.1 cm retroperitoneal lymph node on image 112 series 3 has not significantly changed. Moderate wall thickening about the distal esophagus. Trace abdominopelvic ascites. Moderate distention of the stomach with narrowing at the level the proximal duodenum. No evidence of small bowel obstruction. Colonic diverticulosis. Postoperative changes from ileocecectomy with ileocolic anastomosis. Multiple tablets are noted at the anastomotic site. Extensive peritoneal carcinomatosis redemonstrated with soft tissue nodules of the right lower quadrant mesentery noted measuring up to 5.3 cm on image 229 series 3, progressed from prior. Carcinomatosis invades the right perinephric space, also unchanged. Progressive carcinomatosis about the sigmoid colon with widespread serosal implants about the large bowel. Soft tissues are unremarkable. Advanced degenerative changes about the pubic symphysis. Demineralized appearance of the bones. Advanced degenerative changes of the lower lumbar spine. No new bony lesions identified. IMPRESSION: 1. Limited study without the use of IV contrast. 2. Postoperative changes from ileocecectomy. No bowel obstruction. 3. Moderate gastric distention with narrowing at the level of the proximal duodenum, possibly secondary to adjacent peritoneal tethering with carci nomatosis. Correlate clinically to exclude gastric outlet obstruction. 4. Progressive peritoneal carcinomatosis with trace abdominopelvic ascites. 5. Slightly increased size of the mass about the right hepatic lobe suggestive of metastasis, now measuring 1.4 cm. 6. Slightly progressed retroperitoneal adenopathy. 7. Small right pleural effusion is unchanged. 8. Additional findings as above. Electronically signed by: Clint Rodriguez M.D. 03/02/2019 6:35 PM Dictated: 03/02/191819 Transcribed: 03/02/191819 [phone] X[facility] Report Patient: KATELYNN BLEVINS Date: 03/02/19 MR#: [id number]: [address] Acct ID:[id number]: [address] Date: 1940[place] Zip: [place] [address] Age: 78Location: ED Sex: M Room/Bed: Att Phy: Diagnosis: AB PAIN, VOMITING, NAUSEA Snow Phy: John De Los Santos M.D.Service Date: 03/02/19 Fam Phy: Arnulfo Chaudhry MDInterpreting Phy: Ron Rodriguez Admit Phy: Ordering Phy: Warren Chaudhry DO cc: ~ XR chest 1V portable HISTORY: 78 years-old Male CP acute atypical chest pain with shortness of breath COMPARISON: Chest radiograph 01/18/2018, CTA chest 01/14/2018 TECHNIQUE: Portable AP view of the chest FINDINGS: Cardiomediastinal and hilar silhouettes are unchanged. Stable positioning of the left pectoral Jmdwou-a-Uwsz catheter. Scattered calcified granulomata. There is no pneumothorax, pleural effusion, focal airspace consolidation or overt pulmonary edema. Coronary arterial stent graft noted. Degenerative changes of the shoulders and spine. IMPRESSION: No acute process. The above report was generated using voice recognition software. It may contain grammatical, syntax or spelling errors. Electronically signed by: Clint Rodriguez M.D. 03/02/2019 5:44 PM Code Status & VTE Plan Code Status DO NOT RESUSCITATE VTE Prophylaxis Plan VTE Prophylaxis will be ordered: Yes
[2019-03-02] MEDS ORDERED: MoRPHine SULFATE 10 MG/0.5 ML UDP PO PRN (21:42)
[2019-03-02] MEDS ORDERED: ONDANSETRON INJ 2 MG/ML 2 ML VIAL IV PRN (21:42)
[2019-03-02] MEDS: FAMOTIDINE 20 MG in SYRINGE 3 ML IV SCH (21:58)
[2019-03-02] MEDS: NSS + 20MEQ KCL 20 MEQ/1,000 ML BAG IV SCH (21:58)
[2019-03-02] MEDS: HEPARIN SOD 5,000 UNIT/0.5 ML VIAL SQ SCH (22:05)
[2019-03-03] MEDS ORDERED: HydrALAZINE HCL 20 MG/ML VIAL IV PRN (00:29)
[2019-03-03] MEDS: NSS + 20MEQ KCL 20 MEQ/1,000 ML BAG IV SCH ×2 (08:08→17:37)
[2019-03-03] MEDS: HEPARIN SOD 5,000 UNIT/0.5 ML VIAL SQ SCH ×2 (08:22→21:26)
[2019-03-03] MEDS: FAMOTIDINE 20 MG in SYRINGE 3 ML IV SCH ×2 (11:46→21:25)
[2019-03-03] MEDS ORDERED: CHLORASEPTIC 1.4% SOLN 180 ML BTL MT PRN (12:12)
--- NOTE | 2019-03-03 13:13 | Hospitalist Progress Note ---
Date of Service March 03, 2019 Assessment & Plan (1) Gastric outlet obstruction: Gastric outlet obstruction/secondary to progressive carcinomatosis and traction around the duodenum-- Continue NG tube low intermittent suction. NPO except p.o. meds, increase oral Roxanol dosing due to continued pain Zofran 4 mg IV every 6 hours as needed. Compazine 10 mg IV every 6 hours as needed Pepcid 20 mg IV twice daily. Continue hydration Lorazepam 1 mg IV every 4 hours as needed. Benadryl 25 mg IV every 4 hours as needed. Acetaminophen 1000 mg IV every 8 hours as needed mild pain or temperature. The patient on hospice before this hospitalization. rehab services aide will be consulted and discussions will need to be made with family regarding future directions depending upon how he responds to attempted decompression. We will consult Dr. Jaimes/Dr. Rocha when he returns on Monday and it can be di scussed then the continuance of NG tube versus attempts to bridge any obstruction with a stent. (2) Colonic mass: Patient has a history of cecal carcinoma with abdominal carcinomatosis. (3) Nausea, vomiting and diarrhea: As above. (4) Diabetes: Hold oral medications controlled with sliding scale insulin (5) High blood pressure: Will hold amlodipine, aspirin, metoprolol tartrate and valsartan. IV hydralazine to use as needed Subjective Patient has some nasal discomfort from his NG tube he is some throat discomfort also. He is tolerant without having persistent nausea however he has significant abdominal pain. NG tube drainage has promoted a few 100 cc so far this shift Review of Systems ROS: Patient is thin No double vision blurry vision No problems with speech or swallowing No palpitations, chest pain or pressure No Wheezing or breathing issues Significant abdominal pain especially to the right side of his abdomen where he says that is his tumor and nausea No burning urine urine frequency or changes in color No focal joint pain or muscle pain No skin rashes or oral lesions No unusual bruising or bleeding No focused back pain or numbness or loss of strength No changes in memory or confusion Physical Exam Vital Signs (Past 24 Hours): Last Vital Signs Temp 36.9 C 03/03/19 11:08 Pulse 103 H 03/03/19 11:08 Resp 16 03/03/19 11:08 BP 130/84 03/03/19 11:08 Pulse Ox 96 03/03/19 11:08 The patient appeared thin and chronically ill Vital signs as documented. Head exam is unremarkable. normocephalic, atraumatic Neck is without jugular venous distension, thyromegaly, or lymphademopathy Lungs are clear to auscultation and percussion. Cardiac exam reveals Rhythm is regular. First and second heart sounds normal. Abdominal exam reveals hypoactive bowel sounds tender to palpation there is a mass to the right of his midline his right upper quadrant Extremities are nonedematous and both pedal pulses are present Neurologic exam is A&Ox3, no focal deficits, strength is equal bilateral Psychologically seems r depressed Skin is warm Dry without bruises or lesions
[2019-03-04] MEDS: NSS + 20MEQ KCL 20 MEQ/1,000 ML BAG IV SCH ×3 (04:01→23:59)
[2019-03-04] MEDS: HEPARIN SOD 5,000 UNIT/0.5 ML VIAL SQ SCH ×2 (08:38→20:33)
[2019-03-04] MEDS: FAMOTIDINE 20 MG in SYRINGE 3 ML IV SCH ×2 (08:48→20:37)
--- NOTE | 2019-03-04 10:17 | Gastrointestinal Consultation ---
Date of Consultation March 04, 2019 Assessment & Plan (1) Gastric outlet obstruction: Patient sent in from hospice services due to intractable nausea/vomiting found to have gastric outlet obstruction secondary to progressive carcinomatosis and traction around duodenum. -Continue NG tube suctioning at present -Consider consulting Dr. Mcgovern of [facility] for consideration of stenting or consider transfer to a tertiary care center for stenting. Dr. Rocha to discuss with Dr. Mcgovern. -Continue prn Zofran, Compazine, Pepcid -Supportive care per primary team -Would recommend primary team and social work discuss goals of care with patient as patient and son impressed upon me today that they are interested in permanently discontinuing hospice services in favor of a second opinion for cancer treatment in [place] by a Dr. Beltran. Thank you for allowing us to participate in the care of this patient. If you should have any further questions or concerns, do not hesitate to contact us. Present on Admission?: Yes Supervising Physician Co-Signing Physician Notes Agree with VICENTE Salter as above Abd: Soft, NT, ND, +BS Discussed case with Dr. Mcgovern, who will plan on EGD with possible duodenal stent placement on Continue supportive care History of Present Illness Reason for Consultation: Gastric outlet obstruction Attending Physician: Jones Ro MD, PhD, [facility], [facility]1983 History of Present Illness Patient is a 78 yo male with a history of cecal adenocarcinoma with history of ileocecectomy. Unfortunately the patient has metastatic disease and progressive carcinomatosis. He had been undergoing cancer treatments with Dr. Chaudhry until recently. The patient reports that hospice was suggested to him. He has been utilizing hospice services at home. He and son report that they have sought a second opinion in [place]. They report they may actually be interested in pursuing further treatments in [place] after discharge rather than being discharged on hospice services. The patient was sent in from hospice to the ER due to progressive nausea and vomiting that was unable to be controlled with po medications. A CT scan in the hospital indicated a possible gastric outlet obstruction secondary to progressive carcinomatosis and traction around the duodenum. His symptoms have presently improved with NG tube suction and Zofran and Compazine. GI has been consulted for further consideration of stent placement for his gastric outlet obstruction. He denies any new symptomst at present. Allergies Allergy/AdvReac Type Severity Reaction Status Date / Time clopidogrel AdvReac Unknown NAUSEA AND Verified 01/14/19 11:37 VOMITING ABD CRAMPS CHEMOTHERAPY TREATMENT Allergy Severe CHEST Uncoded 01/14/19 11:37 PAIN, THROAT SWELLING, DIFFICULTY BREATHING. Home Medications Home Medications Medication Instructions Recorded Confirmed Type 5-Fluorouracil 5,280 mg IV DIRECTED 01/14/19 03/02/19 History amlodipine 5 mg PO DAILY 01/14/19 03/02/19 History aspirin 81 mg PO DAILY 01/14/19 03/02/19 History atorvastatin 20 mg PO DAILY 01/14/19 03/02/19 History docusate sodium [Colace] 100 mg PO BID 01/14/19 03/02/19 History flaxseed oil 1,300 mg PO DIRECTED 01/14/19 03/02/19 History glyburide 2.5 mg PO QAM 01/14/19 03/02/19 History metformin 500 mg PO BIDM 01/14/19 03/02/19 History metoprolol tartrate 50 mg PO BID 01/14/19 03/02/19 History mirtazapine 15 mg PO DIRECTED PRN 01/14/19 03/02/19 History nitroglycerin 0.4 mg BUCCAL DIRECTED PRN 01/14/19 03/02/19 History ondansetron HCl [Zofran] 8 mg PO TID PRN 01/14/19 03/02/19 History oxycodone 5 mg PO DIRECTED PRN 01/14/19 03/02/19 History pantoprazole [Protonix] 40 mg PO DAILY 01/14/19 03/02/19 History prochlorperazine maleate 10 mg PO Q6 PRN 01/14/19 03/02/19 History tramadol 50 mg PO Q6H PRN 01/14/19 03/02/19 History valsartan 80 mg PO DAILY 01/14/19 03/02/19 History morphine 1 dose PO UD PRN 03/02/19 03/02/19 History Patient History Medical History Diabetes (Chronic) Renal colic (Acute) High blood pressure (Chronic) History of colon cancer Surgical History History of colon surgery Hx of heart artery stent Family History Other Family history non-contributory Social History Communication Ability: Effective Beliefs That Will Affect Care: Episcopal marital status: Current Living Situation: Significant Other current occupational status: retired Other Information That Helps Us Care for You: No Feels Safe at Home: Yes Safety Concerns: Feels Safe At This Time Smoking Status: Former smoker Hx Alcohol Use: No Hx Substance Use: No Review of Systems Constitutional: no fever no acute issues Respiratory: no cough and no dyspnea Cardiovascular: no chest pain Gastrointestinal: no abdominal pain Musculoskeletal: no back pain Integumentary: no rash Neurologic: no gait abnormality no acute complaints Endocrine: no fatigue no acute issues Physical Exam Vital Signs (Past 24 Hours): Last Vital Signs Temp 36.4 C L 03/04/19 07:19 Pulse 105 H 03/04/19 07:19 Resp 18 03/04/19 07:19 BP 127/87 03/04/19 07:19 Pulse Ox 97 03/04/19 07:19 Constitutional: + ill appearing Eyes: PERRL, conjunctivae normal, anicteric sclerae ENMT: NG tube placed Respiratory: normal respiratory effort, lungs clear to auscultation Cardiovascular: RRR, no murmur, no edema Gastrointestinal (Abdomen): Inspection/Auscultation: abdomen normal to inspection Percussion/Palpation: + abdomen tender Musculoskeletal: Head/Neck/Chest: normocephalic and head atraumatic Skin: pallor Neurologic: Speech / Cognition: normal speech Psychiatric: Orientation: alert and oriented x 3
--- NOTE | 2019-03-04 11:17 | Hospitalist Progress Note ---
Date of Service March 04, 2019 Assessment & Plan (1) Gastric outlet obstruction: Gastric outlet obstruction/secondary to progressive carcinomatosis and traction around the duodenum, Has been on NG tube, no more abdominal pain, no nausea vomiting, continue NG tube low intermittent suction. Continue NPO except p.o. meds, increase oral Roxanol dosing due to continued pain Continue Zofran 4 mg IV every 6 hours as needed. Continue Compazine 10 mg IV every 6 hours as needed Continue Pepcid 20 mg IV twice daily. Continue continue hydration Continue Lorazepam 1 mg IV every 4 hours as needed. Continue Benadryl 25 mg IV every 4 hours as needed. Primary oncologist Dr. Chaudhry, Recently went to review pain for second opinion, possible entering clinical trial after discussed with Dr. Chaudhry Patient request surgeon and GI to see, I agreed, The patient on hospice before this hospitalization. client services administrator will be consulted and discussions, continuance of NG tube versus attempts to bridge any obstruction with a stent. (2) Colonic mass: Patient has a history of cecal carcinoma with abdominal carcinomatosis. (3) Nausea, vomiting and diarrhea: Resolved, as above. (4) Diabetes: Stable, Hold oral medications controlled with sliding scale insulin (5) High blood pressure: Stable, will hold amlodipine, aspirin, metoprolol tartrate and valsartan. IV hydralazine to use as needed (6) Pain: (7) Problem related to discharge planning: We will follow-up specialties input and discussed with patient above discharge plan GI DVT prophylaxis covered, outsole caser for discharge plan Subjective No more abdominal pain, no nausea vomiting, No pain, No constipation, No GI bleeding NG tube continued on the place, .Review of Systems Constitutional: postive weakness, or fatigue Respiratory: no cough, sputum, wheezing, or dyspnea on exertion Cardiac: No chest pain, No orthopnea, No PND, No claudication, No palpitations, Abdomen: see above Musculoskeletal: No joint pain, No muscle pain, No swelling, No calf pain, No problem reported : No dysuria, No urinary frequency, No incontinence, No hematuria Neurologic: No paralysis, No weakness, No numbness/tingling, No vertigo, No balance problems Psychiatric: No depression symptoms, No anhedonism, No anxiety, No insomnia, No substance abuse Heme: No abnormal bleeding/bruising, No clotting problems, No swollen lymph nodes, No night sweats Skin: No rash, No itch, No new/changing skin lesions, No color change, No bleeding Physical Exam Vital Signs (Past 24 Hours): Last Vital Signs Temp 36.7 C 03/04/19 11:02 Pulse 103 H 03/04/19 11:02 Resp 18 03/04/19 11:02 BP 131/90 03/04/19 11:02 Pulse Ox 96 03/04/19 11:02 Physical Exam: General Appearance: Generally looks weak and thin, WD/WN, no apparent distress, Eyes: normal inspection, PERRL, EOMI, sclerae normal ENT: normal ENT inspection, hearing grossly normal, pharynx normal Neck: supple, no adenopathy, thyroid normal, no JVD, no carotid bruits, trachea midline Respiratory/Chest: chest non-tender, normal breath sounds, no respiratory distress, no accessory muscle use, breath sounds, rales, wheezing Cardiovascular: regular rate, rhythm, no JVD, no murmur Abdomen: normal bowel sounds, mild tender in mid abdomen, no organomegaly, Extremities: normal range of motion, non-tender, normal inspection, no pedal edema, no calf tenderness, normal capillary refill, pelvis stable, joint has no limited range of motion, capillary refill is normal, no cyanosis clubbing Neurologic/Psychiatric: hvac mechanical engineer II-XII nml as tested, no motor/sensory deficits, a lert, normal mood/affect, oriented x 3 Skin: normal color, warm/dry, no rash Lymphatic: no adenopathy Results & Data Laboratory Results Laboratory Results - last 24 hr 03/04/19 03/04/19 03/04/19 04:47 07:42 07:43 POC Glucose 97 Cancelled Cancelled
--- NOTE | 2019-03-04 13:23 | Surgery Consultation ---
Date of Consultation March 04, 2019 Assessment & Plan (1) Gastric outlet obstruction: Agree with GI assessment for possible stenting vs venting PEG. Would not recommend any additional surgical procedures (such as ex lap or bypass). Patient and family interested in all available options and to transfer if needed. Supervising Physician Co-Signing Physician Notes Pnt seen and examined, labs and imaging reviewed, agree with above. s/p right hemicolectomy for obstructing colon tumor, found peritoneal carcinomatosis at time of surgery. 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 Last chemo 1 month ago with continued progression of disease. Admitted with gastric outlet obstruction likely secondary to carcinomatosis. Agree with endoscopy with stent. Given degree of carcinomatosis, weight loss, chemo <1 month ago and albumin of 3, patient would be poor candidate for surgical solution such as feeding jejunostomy tube or gastrojejunosotomy. Surgery will follow peripherally, call with questions or concerns. Overall very poor prognosis for this unfortunate gentleman. History of Present Illness Attending Physician: Jones Ro MD, PhD, [facility] History of Present Illness 78 y/o male 1 year s/p right hemicolectomy for Signet ring carcinoma of cecum now with 6 weeks progressive appetite loss, bloating, N/V. His most recent chemo treatment was canceled a few weeks ago by Dr. Chaudhry due to these symptoms, h ospice was recommended. He was admitted over the weekend for N/V, pain and bloating that have resolved after NG was placed. Having loose/liquid BMs. Today he feels well, he is hungry. Allergies Allergy/AdvReac Type Severity Reaction Status Date / Time clopidogrel AdvReac Unknown NAUSEA AND Verified 01/14/19 11:37 VOMITING ABD CRAMPS CHEMOTHERAPY TREATMENT Allergy Severe CHEST Uncoded 01/14/19 11:37 PAIN, THROAT SWELLING, DIFFICULTY BREATHING. Home Medications Home Medications Medication Instructions Recorded Confirmed Type 5-Fluorouracil 5,280 mg IV DIRECTED 01/14/19 03/02/19 History amlodipine 5 mg PO DAILY 01/14/19 03/02/19 History aspirin 81 mg PO DAILY 01/14/19 03/02/19 History atorvastatin 20 mg PO DAILY 01/14/19 03/02/19 History docusate sodium [Colace] 100 mg PO BID 01/14/19 03/02/19 History flaxseed oil 1,300 mg PO DIRECTED 01/14/19 03/02/19 History glyburide 2.5 mg PO QAM 01/14/19 03/02/19 History metformin 500 mg PO BIDM 01/14/19 03/02/19 History metoprolol tartrate 50 mg PO BID 01/14/19 03/02/19 History mirtazapine 15 mg PO DIRECTED PRN 01/14/19 03/02/19 History nitroglycerin 0.4 mg BUCCAL DIRECTED PRN 01/14/19 03/02/19 History ondansetron HCl [Zofran] 8 mg PO TID PRN 01/14/19 03/02/19 History oxycodone 5 mg PO DIRECTED PRN 01/14/19 03/02/19 History pantoprazole [Protonix] 40 mg PO DAILY 01/14/19 03/02/19 History prochlorperazine maleate 10 mg PO Q6 PRN 01/14/19 03/02/19 History tramadol 50 mg PO Q6H PRN 01/14/19 03/02/19 History valsartan 80 mg PO DAILY 01/14/19 03/02/19 History morphine 1 dose PO UD PRN 03/02/19 03/02/19 History Patient History Medical History Diabetes (Chronic) Renal colic (Acute) High blood pressure (Chronic) History of colon cancer Surgical History History of colon surgery Hx of heart artery stent Family History Other Family history non-contributory Social History Communication Ability: Effective Beliefs That Will Affect Care: Spiritism marital status: Current Living Situation: Significant Other current occupational status: retired Other Information That Helps Us Care for You: No Feels Safe at Home: Yes Safety Concerns: Feels Safe At This Time Smoking Status: Former smoker Hx Alcohol Use: No Hx Substance Use: No Review of Systems Gastrointestinal: as per Subjective / HPI Physical Exam Vital Signs (Past 24 Hours): Last Vital Signs Temp 36.7 C 03/04/19 11:02 Pulse 103 H 03/04/19 11:02 Resp 18 03/04/19 11:02 BP 131/90 03/04/19 11:02 Pulse Ox 96 03/04/19 11:02 Gastrointestinal (Abdomen): Inspection/Auscultation: abdomen not distended Percussion/Palpation: + abdomen tender and abdomen soft minimal NG output this shift
--- NOTE | 2019-03-04 16:47 | Oncology Consultation ---
Date of Consultation March 04, 2019 Assessment & Plan (1) Cecal cancer: 78-year-old male, Oncology diagnosis: - Cecal adenocarcinoma, locally advanced with intra-abdominal lymph cinthya metastatic disease diagnosed in February 2008. - S/P right hemicolectomy and partial omentectomy, T3 N2b M1b - Postoperative CEA level around 3.2. - MSI stable - KRAS positive, BRAF negative. - Received modified FOLFOX 6 (5-fluorouracil , Leucovorin, oxaliplatin) between 03/2018-November 2018. - He had allergic reaction with oxaliplatin and so it was discontinued with cycle 6. - Started him on Avastin and Irinotecan combination in early December 2018 by could not tolerate that treatment well and so decided discontinue treatment about 1 month back. - Enrolled in the home hospice after that. Now admitted in the hospital for increasing abdominal pain, found to have progression of the disease noted in the abdomen with peritoneal carcinomatosis, liver), retroperitoneal lymphedenopathy, liver lesion, CEA level increased to around 36 when treatment was discontinued. Imaging study also shows evidence of gastric outlet obstruction, with the NG suction, improvement of the abdominal pain and distention noted. Seen by GI, they planned for endoscopic evaluation and possible stent placement. I reviewed with the patient and family members at bedside, reviewed her blood workup, now improvement of the blood counts noted. Will see how he does next few days, patient and family were would like to consider for some systemic treatment, will decide about that as an outpatient. Briefly I reviewed with him regarding different treatment option that can be considered mainly oral chemotherapy in the form of Lonsurf or Regorafenib. He is not a best candidate for such kind of treatment but will decide about that as an outpatient. Will follow-up. Thanks for the consultation. Arnulfo Chaudhry MD Hem/Onc History of Present Illness Attending Physician: Jones Ro MD, PhD, [facility] 78-year-[facility] male, Oncology diagnosis: --Cecal adenocarcinoma , locally advanced and also intra-abdominal metastatic disease. (03/07/2018) -S/P right hemicolectomy and partial omentectomy by Dr. Jaimes. T3 N2 b M1b -Postoperative CEA level--> 3.2 which is slightly on the higher side -MLH1 PMS 2, MSH 2, MSH6--> intact expression. -K-matthieu--> positive -BRAF--> negative Current treatment > observation. When I saw him in the office on 02/11/2019, he was not doing quite well and so decided to discontinue chemotherapy treatment and the focus on supportive several treatment at home hospice. Previous treatment: S/P right the hemicolectomy and partial omentectomy on 03/07/2018. modified FOLFOX 6 without 5-Fluorouracil bolus, started 04/02/2018. During 6 the cycle (06/12/2018), he had an allergic reaction to oxaliplatin and so decided discontinue oxaliplatin at that time. 10/01/2018-->decided to add 5-Fluorouracil bolu (400 mg/m2), continue with Leucovorin and 5-Fluorouracil infusion at home. (Slight worsening of peritoneal carcinomatosis noted). Last cycle of chemotherapy received on 12/10/2018. 12/31/2018 > Started him on Irinotecan and Avastin combination. Last cycle received on 01/31/2019. He had abdominal pain related to peritoneal carcinomatosis, on Femora and liquid morphine at home for the simple treatment He continued to have increasing abdominal pain, lately started having more abdominal pain, could not eat well, weight loss noted, has poor taste sensation since last chemotherapy treatment, did not or increasing nausea or vomiting, he says that he will not eating much, now admitted for possible gastric outlet obstruction. I saw him at bedside, his and the other family members where also at bed side, reviewed his chart, since last 2 days he has NG tube with suctioning, improvement of the abdominal pain noted, he says that he is somewhat hungry, seen by GI, seen by surgery, planning for upper GI endoscopy and possible stent placement in the near future. No fever, no night sweats, weight loss noted, ambulates slowly, feeling weak and tired, ECOG PS 2, no leg edema, denies any bleeding from any sites. Allergies Allergy/AdvReac Type Severity Reaction Status Date / Time clopidogrel AdvReac Unknown NAUSEA AND Verified 01/14/19 11:37 VOMITING ABD CRAMPS CHEMOTHERAPY TREATMENT Allergy Severe CHEST Uncoded 01/14/19 11:37 PAIN, THROAT SWELLING, DIFFICULTY BREATHING. Home Medications Home Medications Medication Instructions Recorded Confirmed Type 5-Fluorouracil 5,280 mg IV DIRECTED 01/14/19 03/02/19 History amlodipine 5 mg PO DAILY 01/14/19 03/02/19 History aspirin 81 mg PO DAILY 01/14/19 03/02/19 History atorvastatin 20 mg PO DAILY 01/14/19 03/02/19 History docusate sodium [Colace] 100 mg PO BID 01/14/19 03/02/19 History flaxseed oil 1,300 mg PO DIRECTED 01/14/19 03/02/19 History glyburide 2.5 mg PO QAM 01/14/19 03/02/19 History metformin 500 mg PO BIDM 01/14/19 03/02/19 History metoprolol tartrate 50 mg PO BID 01/14/19 03/02/19 History mirtazapine 15 mg PO DIRECTED PRN 01/14/19 03/02/19 History nitroglycerin 0.4 mg BUCCAL DIRECTED PRN 01/14/19 03/02/19 History ondansetron HCl [Zofran] 8 mg PO TID PRN 01/14/19 03/02/19 History oxycodone 5 mg PO DIRECTED PRN 01/14/19 03/02/19 History pantoprazole [Protonix] 40 mg PO DAILY 01/14/19 03/02/19 History prochlorperazine maleate 10 mg PO Q6 PRN 01/14/19 03/02/19 History tramadol 50 mg PO Q6H PRN 01/14/19 03/02/19 History valsartan 80 mg PO DAILY 01/14/19 03/02/19 History morphine 1 dose PO UD PRN 03/02/19 03/02/19 History Patient History Medical History Diabetes (Chronic) Renal colic (Acute) High blood pressure (Chronic) History of colon cancer Surgical History History of colon surgery Hx of heart artery stent Family History Other Family history non-contributory Social History Communication Ability: Effective Beliefs That Will Affect Care: [employer] marital status: Current Living Situation: Significant Other current occupational status: retired Other Information That Helps Us Care for You: No Feels Safe at Home: Yes Safety Concerns: Feels Safe At This Time Smoking Status: Former smoker Hx Alcohol Use: No Hx Substance Use: No Review of Systems GENERAL: weight loss noted, feeling weak and tired, no fever or chills. SKIN: No skin rash, no bruising. HEAD: No new/increasing headache, no dizziness. EYES: No recent change in the vision, no diplopia, EARS: No earache ,no tinnitus, NOSE: No epistaxis, No nasal discharge or stuffiness, MOUTH: No sores, no dysphagia, no hoarseness of voice, NECK: No lumps, No swelling in thyroid area. No stiffness. PULMONARY: No cough, mild shortness of breath on exertion which could be some tiredness related, no hemoptysis, no chest pain, No wheezing. CARDIOVASCULAR: No anginal chest pain, no PND, no orthopnea. No palpitation, no leg edema. No syncope. GASTRIINTESTINAL: abdominal pain present, mostly diffuse in nature,, no nausea or vomiting. No diarrhea, some constipation present. No blood in stool or black tarry stools. No abdominal distention. UROLOGIC: denies any active urinary symptoms.. MUSCULOSKELETAL: No joint pain, No joint swelling, no muscle weakness. HEMATOLOGIC: No anemia, no bleeding disorder, No bruising. NEUROLOGIC: No seizures, no focal weakness, no speech difficulty, No memory disturbances. No tingling or numbness of the extremities. PSYCHRIATRIC: No depression. Some anxiety present. No psychosis. Physical Exam Vital Signs (Past 24 Hours): Last Vital Signs Temp 36.5 C 03/04/19 15:51 Pulse 111 H 03/04/19 15:51 Resp 18 03/04/19 15:51 BP 149/97 H 03/04/19 15:51 Pulse Ox 95 04/08/19 15:51 On exam: - Alert and oriented x3, thin built man, not in any distress. - HEENT: no icterus, no pallor, Throat: Normal. - Neck: No palpable cervical lymphadenopathy. - Chest: clear to auscultation. - Abdomen: soft, nontender, no hepatomegaly, no splenomegaly. - No focal neuro deficit. - Extremities: no finger clubbing, no leg edema. Results & Data Laboratory Results - CEA level > 36 (02/11/2019) Blood workup done on 03/02/2019: - WBC 5800, H&H of 13.7/40.3, Platelet count of 269,000 - BUN/creatinine: 30/1.0, normal liver function test other than albumin level of 3 - Calcium 10.[address] scan of the abdomen and pelvis done without intravenous contrast (03/02/2019) - Moderate gastric distention with narrowing at the level of proximal duodenum. - Right hepatic lobe mass increase in size now measuring 1.4 cm (it was 1.2 cm earlier in November 2018) - Slight progression of the retroperitoneal lymphadenopathy noted, largest lymph node measuring about 1.5 x 1.1 cm. - Small right pleural effusion unchanged. - Progression of the previously noted pelvic carcinomatosis noted. Chest x-ray (03/02/2019) > Negative.
--- NOTE | 2019-03-04 17:05 | XRay Report ---
SINGLE VIEW CHEST CLINICAL HISTORY: Enteric tube placement. FINDINGS: 2 AP, portable, upright chest radiographs are compared to study dated 03/02/2019 and correlat ed with chest CT dated 01/14/2019. The examination is degraded by portable technique and patient rotat ion. A left internal jugular central venous infusion port is unchanged in position. An enteric tube h as been placed. The tip projects below the diaphragm over the mid stomach. The heart is enlarged and there is atherosclerotic calcification with uncoiling of the thoracic aorta. The pulmonary vasculatur e is noncongested. Numerous calcified granulomas are again observed. There is mild bibasilar scarring /atelectasis. No airspace consolidation or large pleural effusion is identified. No pneumothorax is s een. The skeletal structures are osteopenic. The bony thorax is grossly intact. Degenerative change i s noted throughout the thoracic spine. IMPRESSION: 1. An enteric tube has been placed. The tip projects below the diaphragm. 2. Cardiomegaly without radiographic evidence of congestive failure. 3. No airspace consolidation or large pleural effusion is identified. Electronically signed by: Mauro Abdul M.D. 03/04/2019 5:04 PM
[2019-03-04] MEDS: HYDROmorphone INJ 0.5 MG/0.5 ML SYR IV PRN (20:37)
[2019-03-04 23:24] LABS: Appearance Urine Clear (Clear); Bilirubin Urine Negative (Negative); Blood Urine Negative (Negative); Color Urine Yellow; Glucose Urine UA Negative (Negative); Ketones Urine 2+ (Negative); Leukocyte Esterase Urine Negative (Negative); Nitrite Urine Negative (Negative); Protein Urine Negative (Negative); Specific Gravity Urine 1.025 (1.000-1.030); Urobilinogen Urine Negative (Negative)
[2019-03-05] MEDS: HYDROmorphone INJ 0.5 MG/0.5 ML SYR IV PRN ×3 (06:17→18:18)
[2019-03-05 08:00] LABS: Albumin Globulin Ratio 0.7 (0.9-2); Albumin Level 2.6 gm/dl (3.4-5.0); BUN Creatinine Ratio 38.6 (10-20); Bilirubin,Total 0.4 mg/dl (0.2-1); Calcium 8.9 mg/dl (8.5-10.1); Est GFR (African American) 100.2; Est GFR (Non-African American) 86.5; Magnesium 2.3 mg/dl (1.8-2.4); Phosphorus 3.4 mg/dl (2.5-4.9); Potassium 4.5 mmol/L (3.5-5.1); Total Protein 6.6 gm/dl (6.4-8.2)
[2019-03-05] MEDS: HEPARIN SOD 5,000 UNIT/0.5 ML VIAL SQ SCH ×2 (08:56→21:42)
[2019-03-05] MEDS: FAMOTIDINE 20 MG in SYRINGE 3 ML IV SCH ×2 (09:06→21:40)
[2019-03-05] MEDS: POTASSIUM CHLORIDE 10 MEQ in SODIUM CHLORIDE 0.45 % 1,000 ML IV SCH ×2 (10:26→22:26)
--- NOTE | 2019-03-05 17:57 | Hospitalist Progress Note ---
Date of Service March 05, 2019 Assessment & Plan (1) Gastric outlet obstruction: Gastric outlet obstruction/secondary to progressive carcinomatosis and traction around the duodenum, Has been on NG tube, no more abdominal pain, no nausea vomiting, continue NG tube low intermittent suction. Continue NPO except p.o. meds, increase oral Roxanol dosing due to continued pain Continue Zofran 4 mg IV every 6 hours as needed. Continue Compazine 10 mg IV every 6 hours as needed Continue Pepcid 20 mg IV twice daily. Continue continue hydration Continue Lorazepam 1 mg IV every 4 hours as needed. Continue Benadryl 25 mg IV every 4 hours as needed. Primary oncologist Dr. Chaudhry, out pt f/u The patient on hospice before this hospitalization. employee services manager will be consulted and discussions, continuance of NG tube GI planning to do EGD today Surgeon plan to do stent after EGD (2) Colonic mass: Patient has a history of cecal carcinoma with abdominal carcinomatosis. (3) Nausea, vomiting and diarrhea: Resolved, as above. (4) Diabetes: Stable, Hold oral medications controlled with sliding scale insulin (5) High blood pressure: Stable, will hold amlodipine, aspirin, metoprolol tartrate and valsartan. 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 Subjective She denies chair, pleasant, no more abdominal pain, no nausea vomiting, No pain, No constipation, No GI bleeding NG tube continued on the place, .Review of Systems Constitutional: postive weakness, or fatigue Respiratory: no cough, sputum, wheezing, or dyspnea on exertion Cardiac: No chest pain, No orthopnea, No PND, No claudication, No palpitations, Abdomen: see above Musculoskeletal: No joint pain, No muscle pain, No swelling, No calf pain, No problem reported : No dysuria, No urinary frequency, No incontinence, No hematuria Neurologic: No paralysis, No weakness, No numbness/tingling, No vertigo, No balance problems Psychiatric: No depression symptoms, No anhedonism, No anxiety, No insomnia, No substance abuse Heme: No abnormal bleeding/bruising, No clotting problems, Skin: No rash, No itch, No new/changing skin lesions Physical Exam Vital Signs (Past 24 Hours): Last Vital Signs Temp 36.4 C L 03/05/19 15:39 Pulse 102 H 03/05/19 15:39 Resp 18 03/05/19 15:39 BP 118/85 03/05/19 15:39 Pulse Ox 97 03/05/19 15:39 Physical Exam: General Appearance: Generally looks weak and thin, no apparent distress, Eyes: normal inspection, PERRL, EOMI, sclerae normal ENT: hearing grossly normal, pharynx normal Neck: supple, no adenopathy, thyroid normal, no JVD, no carotid bruits, trachea midline Respiratory/Chest: chest non-tender, normal breath sounds, no respiratory distress, no accessory muscle use, breath sounds, rales, wheezing Cardiovascular: regular rate, rhythm, no JVD, no murmur Abdomen: normal bowel sounds, mild tender in mid abdomen, no organomegaly, Extremities: normal range of motion, non-tender, normal inspection, no pedal edema, no calf tenderness, normal capillary refill, pelvis stable, joint has no limited range of motion, capillary refill is normal, no cyanosis clubbing Neurologic/Psychiatric: 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, no motor/sensory deficits, alert, normal mood/affect, oriented x 3 Skin: normal color, warm/dry, no rash Results & Data Laboratory Results Laboratory Results - last 24 hr 03/04/19 03/05/19 03/05/19 23:00 00:21 06:13 Sodium Potassium Chloride Carbon Dioxide Anion Gap BUN Creatinine Est Cr Clr Drug Dosing Est GFR ( Amer) Est GFR (Non-Af Amer) BUN/Creatinine Ratio Glucose POC Glucose 88 91 Calcium Phosphorus Magnesium Total Bilirubin AST ALT Alkaline Phosphatase Total Protein Albumin Globulin Albumin/Globulin Ratio Urine Color Yellow Urine Appearance Clear Urine pH 5.0 Ur Specific [place] 1.025 Urine Protein Negative Urine Glucose (UA) Negative Urine Ketones 2+ H Urine Blood Negative Urine Nitrite Negative Urine Bilirubin Negative Urine Urobilinogen Negative Ur Leukocyte Esterase Negative 03/05/19 03/05/19 06:48 11:54 Sodium 151 H Potassium 4.5 Chloride 119 H Carbon Dioxide 22 Anion Gap 10.0 BUN 30 H Creatinine 0.78 Est Cr Clr Drug Dosing 82.0 Est GFR ( Amer) 100.2 Est GFR (Non-Af Amer) 86.5 BUN/Creatinine Ratio 38.6 H Glucose 98 POC Glucose 107 H Calcium 8.9 Phosphorus 3.4 Magnesium 2.3 Total Bilirubin 0.4 AST 18 ALT 13 Alkaline Phosphatase 76 Total Protein 6.6 Albumin 2.6 L Globulin 4.0 Albumin/Globulin Ratio 0.7 L Urine Color Urine Appearance Urine pH Ur Specific [place] Urine Protein Urine Glucose (UA) Urine Ketones Urine Blood Urine Nitrite Urine Bilirubin Urine Urobilinogen Ur Leukocyte Esterase
[2019-03-05] MEDS: HEPARIN 100 UNIT/ML 5ML FLUSH FLUSH PRN (18:18)
[2019-03-06] MEDS: HYDROmorphone INJ 0.5 MG/0.5 ML SYR IV PRN ×4 (00:52→12:50)
[2019-03-06 08:03] LABS: BUN Creatinine Ratio 38.9 (10-20); Creatinine Clr Calc Pharmacy 82.8 ml/min; Est GFR (African American) 99.7; Magnesium 2.1 mg/dl (1.8-2.4); Potassium 4.3 mmol/L (3.5-5.1)
[2019-03-06 08:04] LABS: Phosphorus 3.6 mg/dl (2.5-4.9)
[2019-03-06] MEDS: FAMOTIDINE 20 MG in SYRINGE 3 ML IV SCH ×2 (09:48→21:37)
[2019-03-06] MEDS: HEPARIN SOD 5,000 UNIT/0.5 ML VIAL SQ SCH (12:00)
--- NOTE | 2019-03-06 13:56 | Anesthesiology Consultation ---
Date of Service March 06, 2019 Assessment & Plan Chart Review Chart Review: Acceptable Risk for Surgery Consults Requested none History Surgery Operation Date: 03/07/19 13:40 Proposed Procedures p Esophagogastroduodenoscopy with Duodenal Stent - Arianne Mcgovern Height/Weight Height: 6 ft Weight: 76 kg Allergies Allergy/AdvReac Type Severity Reaction Status Date / Time clopidogrel AdvReac Unknown NAUSEA AND Verified 01/14/19 11:37 VOMITING ABD CRAMPS CHEMOTHERAPY TREATMENT Allergy Severe CHEST Uncoded 01/14/19 11:37 PAIN, THROAT SWELLING, DIFFICULTY BREATHING. Medications Home Medications Medication Instructions Recorded Confirmed Last Taken 5-Fluorouracil 5,280 mg IV DIRECTED 01/14/19 03/02/19 Unknown amlodipine 5 mg PO DAILY 01/14/19 03/02/19 Unknown aspirin 81 mg PO DAILY 01/14/19 03/02/19 Unknown atorvastatin 20 mg PO DAILY 01/14/19 03/02/19 Unknown docusate sodium [Colace] 100 mg PO BID 01/14/19 03/02/19 Unknown flaxseed oil 1,300 mg PO DIRECTED 01/14/19 03/02/19 Unknown glyburide 2.5 mg PO QAM 01/14/19 03/02/19 Unknown metformin 500 mg PO BIDM 01/14/19 03/02/19 Unknown metoprolol tartrate 50 mg PO BID 01/14/19 03/02/19 Unknown mirtazapine 15 mg PO DIRECTED PRN 01/14/19 03/02/19 Unknown nitroglycerin 0.4 mg BUCCAL DIRECTED PRN 01/14/19 03/02/19 Unknown ondansetron HCl [Zofran] 8 mg PO TID PRN 01/14/19 03/02/19 Unknown oxycodone 5 mg PO DIRECTED PRN 01/14/19 03/02/19 Unknown pantoprazole [Protonix] 40 mg PO DAILY 01/14/19 03/02/19 Unknown prochlorperazine maleate 10 mg PO Q6 PRN 01/14/19 03/02/19 Unknown tramadol 50 mg PO Q6H PRN 01/14/19 03/02/19 Unknown valsartan 80 mg PO DAILY 01/14/19 03/02/19 Unknown morphine 1 dose PO UD PRN 03/02/19 03/02/19 Unknown Active Medications Generic Name Dose Route Start Last Admin Trade Name Freq PRN Reason Stop Dose Admin Heparin Sodium (Porcine) 5,000 units 03/02/19 21:42 03/06/19 12:00 Heparin Sodium (Porcine) SQ 04/01/19 21:41 Not Given Q12 RADHIKA Heparin Sodium (Porcine) 5 ml 03/02/19 23:58 03/05/19 18:18 Heparin Sod 100 Unit/Ml Flush FLUSH 04/01/19 23:44 5 ml PRN PRN Administration Flush Hydromorphone HCl 0.5 mg 03/03/19 12:13 03/06/19 12:50 Dilaudid IV 03/17/19 12:12 0.5 mg Q3H PRN Administration Pain Famotidine 20 mg/ Syringe 5 mls @ 2.5 mls/min 03/02/19 22:00 03/06/19 09:48 IV 04/01/19 21:59 2.5 mls/min Q12H RADHIKA Administration Potassium Chloride 10 meq/ 1,005 mls @ 80 mls/hr 03/05/19 10:00 03/06/19 12:59 Sodium Chloride IV 04/04/19 09:59 Infused .[id number] RADHIKA Infusion Phenol 2 sprays 03/03/19 12:12 03/03/19 13:05 Chloraseptic 1.4% [place] 04/02/19 12:11 2 sprays Q3H PRN Administration Sore Throat Past Medical History Medical History Diabetes (Chronic) Renal colic (Acute) High blood pressure (Chronic) History of colon cancer Past Family History Family History Other Family history non-contributory Past Surgical History Surgical History History of colon surgery Hx of heart artery stent Social History Smoking Status: Former smoker Smoking End Date: 40 years ago Hx Alcohol Use: No Hx Substance Use: No Physical Exam Vital Signs Last Vital Signs Temp 36.9 C 03/06/19 11:42 Pulse 112 H 03/06/19 11:42 Resp 20 03/06/19 11:42 BP 117/78 03/06/19 11:42 Pulse Ox 96 03/06/19 11:42 Testing Laboratory Results 03/02/19 17:28 03/06/19 07:27 PT 11.1 Seconds (9.0-12.0) 03/02/19 17:28 INR 1.1 (0.9-1.1) 03/02/19 17:28 APTT 23.7 Seconds (21.0-31.0) 03/02/19 17:28 Urine Color Yellow 03/04/19 23:00 Urine Appearance Clear (Clear) 03/04/19 23:00 Urine pH 5.0 (4.5-7.5) 03/04/19 23:00 Ur Specific [place] 1.025 (1.000-1.030) 03/04/19 23:00 Urine Protein Negative (Negative) 03/04/19 23:00 Urine Glucose (UA) Negative (Negative) 03/04/19 23:00 Urine Ketones 2+ (Negative) H 03/04/19 23:00 Urine Nitrite Negative (Negative) 03/04/19 23:00 Ur Leukocyte Esterase Negative (Negative) 03/04/19 23:00 03/06/19 11:30 POC Glucose 92
[2019-03-06] MEDS: HYDROmorphone INJ 1 MG/ML SYRINGE IV PRN ×2 (15:59→23:34)
--- NOTE | 2019-03-06 17:38 | Hospitalist Progress Note ---
Date of Service March 06, 2019 Assessment & Plan (1) Gastric outlet obstruction: Gastric outlet obstruction/secondary to progressive carcinomatosis and traction around the duodenum. - Continue NG tube to low intermittent suction - Continue pain meds, anti-emetics, Pepcid, lorazepam - Plan for EGD/stent with Dr. Mcgovern on 03/07 @ 2pm (2) Hypernatremia: Likely due to metabolic disturbances from his NG tube and getting IV fluids. - On 11/28 NSS IV fluids - Will get urine osms and Na to help define issue. - Total water deficit is currently 3 L (3) Colonic mass: Patient has a history of cecal carcinoma with abdominal carcinomatosis. - Follows with Dr. Chaudhry - Has seen Dr. Darling at [facility] in [place] & family is considering a one- time visit with him to discuss possible clinical trials. (4) Nausea, vomiting and diarrhea: Due to gastric outlet obstruction. - Plan as above (5) Diabetes: - Hold oral medications controlled with sliding scale insulin (6) High blood pressure: As outpatient, he is on amlodipine, metoprolol tartrate, and valsartan. - Given his lack of PO intake, BP has been normal off his oral meds. Most recent is 120/85. - Hold oral meds - IV hydralazine to use as needed (7) Pain: Due to abdominal cancer. (8) DVT prophylaxis: SCDs - Heparin held on 03/06 for his procedure tomorrow. - Given his cancer; will switch to Lovenox after procedure Subjective Still with abdominal pain. Worse than prior days. Reports no fevers/chills, chest pain, shortness of breath, nausea, or vomiting. Physical Exam Vital Signs (Past 24 Hours): Last Vital Signs Temp 36.3 C L 03/06/19 16:04 Pulse 111 H 03/06/19 16:04 Resp 20 03/06/19 16:04 BP 119/85 03/06/19 16:04 Pulse Ox 97 03/06/19 16:04 Constitutional: + ill appearing Eyes: PERRL, conjunctivae normal, anicteric sclerae Respiratory: normal respiratory effort, lungs clear to auscultation Cardiovascular: RRR, no murmur, no edema Gastrointestinal (Abdomen): Inspection/Auscultation: abdomen normal to inspection; abdomen not distended Percussion/Palpation: + abdomen tender and abdomen soft Musculoskeletal: Head/Neck/Chest: normocephalic and head atraumatic Neurologic: Speech / Cognition: normal speech Psychiatric: Orientation: alert and oriented x 3
[2019-03-06] MEDS: DEXTROSE 5% 1,000 ML IV SCH (18:25)
[2019-03-06] MEDS: POTASSIUM CHLORIDE 10 MEQ in SODIUM CHLORIDE 0.45 % 1,000 ML IV SCH (18:28)
[2019-03-07] MEDS: HYDROmorphone INJ 1 MG/ML SYRINGE IV PRN ×3 (05:04→17:51)
[2019-03-07 06:08] LABS: Hematocrit (blood only) 40.1 % (42-52); Hemoglobin 12.7 g/dL (14.0-18.0); Mean Corpuscular Hgb Conc 31.7 g/dL (32-36); Mean Corpuscular Volume 97.3 fL (80-100); Mean Platelet Volume 9.1 fL (7.4-10.4); Platelet Count 204 K/uL (130-400); RDW Coefficient of Variation 15.7 % (11.5-14.5); RDW Standard Deviation 55.8 fL (36.4-46.3); Red Blood Count 4.12 M/uL (4.7-6.1); White Blood Count 8.19 K/uL (4.8-10.8)
[2019-03-07] MEDS: DEXTROSE 5% 1,000 ML IV SCH ×2 (06:42→21:38)
[2019-03-07 06:46] LABS: BUN Creatinine Ratio 32.2 (10-20); Calcium 8.5 mg/dl (8.5-10.1); Creatinine Clr Calc Pharmacy 76.9 ml/min; Est GFR (African American) 97.2; Est GFR (Non-African American) 83.9; Magnesium 2.1 mg/dl (1.8-2.4); Potassium 3.8 mmol/L (3.5-5.1)
[2019-03-07] MEDS: FAMOTIDINE 20 MG in SYRINGE 3 ML IV SCH ×2 (09:21→21:38)
[2019-03-07] MEDS ORDERED: LIDOCAINE HCL 2% 2 ML VIAL/AMP(20MG/ML) INFIL ONE (14:02)
[2019-03-07] MEDS ORDERED: ROCURONIUM BROMIDE 10 MG/ML 5 ML VIAL ONE (14:02)
[2019-03-07] MEDS ORDERED: PROPOFOL IV EMULSION 10 MG/ML 20 ML VIAL IV ONE (14:02)
[2019-03-07] MEDS ORDERED: fentaNYL citrate 100 MCG/2 ML VIAL ONE (14:03)
[2019-03-07] MEDS ORDERED: SUCCINYLCHOLINE CHLORIDE 20 MG/ML 10 ML VIAL ONE (14:03)
--- NOTE | 2019-03-07 15:00 | Hospitalist Progress Note ---
Date of Service March 07, 2019 Assessment & Plan (1) Gastric outlet obstruction: Gastric outlet obstruction/secondary to progressive carcinomatosis and traction around the duodenum. - Continue NG tube to low intermittent suction - Continue pain meds, anti-emetics, Pepcid, lorazepam - Plan for EGD/stent with Dr. Mcgovern on 03/07 @ 2pm - Will advance diet cautiously after EGD (2) Hypernatremia: Due to H20 loss from his NG tube and getting high Na load from IV fluids. Urine osms showed appropriately concentrated urine with mixed urine Na. - Switched to D5w on 03/06 with improvement from 155 -> 144 on 03/07 - Will continue D5w at lower rate to prevent hyponatremia. Hopefully once his gastric stent is in, he will be able to drink PO liquids and his kidneys will be able to regulate his Na better. (3) Colonic mass: Patient has a history of cecal carcinoma with abdominal carcinomatosis. - Follows with Dr. Chaudhry - Has seen Dr. Darling at [facility] in [place] & family would like to have a one-time office visit with him to discuss possible clinical trials. - No inpatient needs at present (4) Nausea, vomiting and diarrhea: Due to gastric outlet obstruction. - Plan as above (5) Diabetes: - Hold oral medications controlled with sliding scale insulin (6) High blood pressure: As outpatient, he is on amlodipine, metoprolol tartrate, and valsartan. - Given his lack of PO intake, BP has been normal off his oral meds. Most recent is 120/85. - Hold oral meds - IV hydralazine to use as needed (7) Pain: Due to abdominal cancer and gastric outlet obstruction. - Currently requiring IV pain medications due to being NPO. - Spent time discussing with him today that he may continue to be in pain after the obstruction is relieved as his pain is very likely related to the cancer itself as well. Patient and are understanding of this. (8) DVT prophylaxis: SCDs - Heparin held on 03/06 for his procedure today. - Given his cancer; will switch to Lovenox after procedure Subjective Still with abdominal pain. Worse than prior days. Feeling frustrated with delays, but overall in ok spirits. Reports no fevers/chills, chest pain, s hortness of breath, nausea, or vomiting. Physical Exam Vital Signs (Past 24 Hours): Last Vital Signs Temp 36.5 C 03/07/19 13:49 Pulse 113 H 03/07/19 13:49 Resp 18 03/07/19 13:49 BP 118/87 03/07/19 13:49 Pulse Ox 94 03/07/19 13:49 Constitutional: + ill appearing Eyes: PERRL, conjunctivae normal, anicteric sclerae ENMT: NG tube Respiratory: normal respiratory effort, lungs clear to auscultation Cardiovascular: RRR, no murmur, no edema Gastrointestinal (Abdomen): Inspection/Auscultation: abdomen normal to inspection; abdomen not distended Percussion/Palpation: + abdomen tender and abdomen soft Musculoskeletal: Head/Neck/Chest: normocephalic and head atraumatic Neurologic: Speech / Cognition: normal speech Psychiatric: Orientation: alert and oriented x 3
--- NOTE | 2019-03-07 15:21 | Gastroenterology Progress Note ---
Date of Service March 07, 2019 Assessment & Plan (1) Gastric outlet obstruction: Patient with suspected gastric outlet obstruction from his history of colorectal cancer. We are planning to do upper endoscopy and possible stent placement today if a malignant stricture is noted. We have also discussed the potential role of ERCP with prophylactic biliary stent placement. Informed consent was signed by the patient. The procedure was discussed at great length with he and his . We discussed the risks of the procedures to include bleeding, infection, perforation, aspiration, cryptitis, and the need for follow-up studies. Subjective Patient with suspected duodenal obstruction secondary to advanced colon cancer. Upper endoscopy with potential placement of an enteral stent has been requested by his regular GI provider. The patient his and I did have a long discussion this afternoon about the goals of today's therapy. We are planning to do upper endoscopy and potential enteral stent placement. If it appears that the stent may obstruct the biliary tree we may place a prophylactic biliary stent as well peer Physical Exam Vital Signs (Past 24 Hours): Last Vital Signs Temp 36.5 C 03/07/19 13:49 Pulse 113 H 03/07/19 13:49 Resp 18 03/07/19 13:49 BP 118/87 03/07/19 13:49 Pulse Ox 94 03/07/19 13:49 Eyes: PERRL, conjunctivae normal, anicteric sclerae Neck: trachea midline, no thyromegaly Cardiovascular: Heart Sounds: + murmur Gastrointestinal (Abdomen): Inspection/Auscultation: abdomen not distended
--- NOTE | 2019-03-07 15:22 | History & Physical Bridge Note ---
Date of Service March 07, 2019 History & Physical Bridge Note I have examined the patient, reviewed the History & Physical and in the interval since the performance of the History & Physical I have noted the following changes of clinical significance: no changes noted
[2019-03-07] MEDS ORDERED: fentaNYL citrate 100 MCG/2 ML VIAL IV PRN (15:33)
[2019-03-07] MEDS ORDERED: ePHEDrine sulfate 50 MG/ML AMP IV PRN (15:33)
[2019-03-07] MEDS ORDERED: PHENYLEPHRINE 100MCG/ML 5ML SYR IV PRN (15:33)
[2019-03-07] MEDS ORDERED: ATROPINE SULFATE 0.1 MG/ML 10ML SYR IV PRN (15:33)
[2019-03-07] MEDS ORDERED: ONDANSETRON INJ 2 MG/ML 2 ML VIAL IV PRN (15:33)
[2019-03-07] MEDS ORDERED: INDOMETHACIN 50 MG SUPP PR ONE (15:37)
--- NOTE | 2019-03-07 15:57 | Post Operative Brief Note ---
Immediate Post Op Note v1 Date of Surgery March 07, 2019 Pre & Post Diagnosis Operation Date: 03/07/19 13:40 Pre-Op Diagnosis: Gastric outlet obstruction Post-Op Diagnosis: carcinomatosis Procedure Operation Date: 03/07/19 13:40 Actual Procedures p Esophagogastroduodenoscopy with biopsies(Not Applicable) - Arianne Mcgovern Surgeon Arianne Mcgovern Cell Tender none Estimated Blood Loss 0 Findings See Below (diffuse gastritis, no obstruction seen to the 4 th portion of the duodenum)
--- NOTE | 2019-03-07 16:20 | GI REPORT ---
Patient Name: Robson Giron Procedure Date: 03/07/2019 3:42 PM Date of : 1940 Admit Type: Inpatient Age: 78 Gender: Male Attending MD: Arianne Mcgovern DO Procedure: Upper GI endoscopy Providers: Arianne Mcgovern DO Referring MD: Jesse Tse Md, Juan Rocha, DO Indications: Abnormal CT of the GI tract Medicines: General Anesthesia Complications: No immediate complications. Estimated blood loss: None. Estimated Blood Loss: Estimated blood loss was minimal. Procedure: Pre-Anesthesia Assessment: - Prior to the procedure, a History and Physical was performed, and patient medications, allergies and sensitivities were reviewed. The patient's tolerance of previous anesthesia was reviewed. - The risks and benefits of the procedure and the sedation options and risks were discussed with the patient. All questions were answered and informed consent was obtained. - Patient identification and proposed procedure were verified prior to the procedure by the physician, the nurse and the tick inspector. The procedure was verified in the procedure room. - Pre-procedure physical examination revealed no contraindications to sedation. - ASA Grade Assessment: IV - A patient with severe systemic disease that is a constant threat to life. - After reviewing the risks and benefits, the patient was deemed in satisfactory condition to undergo the procedure. - The anesthesia plan was to use general anesthesia. - Immediately prior to administration of medications, the patient was re-assessed for adequacy to receive sedatives. - The heart rate, respiratory rate, oxygen saturations, blood pressure, adequacy of pulmonary ventilation, and response to care were monitored throughout the procedure. - The physical status of the patient was re-assessed after the procedure. After obtaining informed consent, the endoscope was passed under direct vision. Throughout the procedure, the patient's blood pressure, pulse, and oxygen saturations were monitored continuously. The Endoscope was introduced through the mouth, and advanced to the fourth part of duodenum. The upper GI endoscopy was accomplished without difficulty. The patient tolerated the procedure well. Findings: The examined esophagus was normal. The Z-line was regular and was found 35 cm from the incisors. Diffuse moderate inflammation characterized by erythema and granularity was found in the entire examined stomach. Biopsies were taken with a cold forceps for histology. Estimated blood loss was minimal. The examined duodenum was normal. Impression: - Normal esophagus. - Z-line regular, 35 cm from the incisors. - Gastritis. Biopsied. - Normal examined duodenum. No evidence of duodenal obstruction. Recommendation: - Return patient to hospital [facility] for ongoing care. - Symptoms are likely related to peritoneal carcinomatosis. Arianne Mcgovern D.O. Arianne Mcgovern, 03/07/2019 4:20:35 PM This report has been signed electronically. Note Initiated On: 03/07/2019 3:42 PM Number of Addenda: 0 I attest to the content of the Intraoperative Record and orders documented therein, exceptions below {[id number]}
[2019-03-07] MEDS ORDERED: ESMOLOL HCL INJ 10 MG/ML 10ML VIAL IV ONE (16:22)
[2019-03-08] MEDS: HYDROmorphone INJ 1 MG/ML SYRINGE IV PRN ×4 (01:45→20:31)
[2019-03-08 06:05] LABS: Hematocrit (blood only) 40.3 % (42-52); Hemoglobin 12.8 g/dL (14.0-18.0); Mean Corpuscular Hgb Conc 31.8 g/dL (32-36); Mean Corpuscular Volume 97.6 fL (80-100); Mean Platelet Volume 9.4 fL (7.4-10.4); Platelet Count 189 K/uL (130-400); RDW Coefficient of Variation 15.6 % (11.5-14.5); Red Blood Count 4.13 M/uL (4.7-6.1); White Blood Count 9.03 K/uL (4.8-10.8)
[2019-03-08 06:38] LABS: BUN Creatinine Ratio 27.4 (10-20); Calcium 8.9 mg/dl (8.5-10.1); Creatinine Clr Calc Pharmacy 73.4 ml/min; Est GFR (African American) 95.4; Est GFR (Non-African American) 82.3
--- NOTE | 2019-03-08 10:20 | Anesthesiology Progress Note ---
Date of Service March 07, 2019 Anesthesia Post Procedure Vital Signs Vital Signs: Temp Pulse Pulse Resp BP Pulse Ox 03/08/19 07:32 36.8 C 83 18 123/90 96 03/08/19 03:38 36.2 C L 107 H 18 110/78 95 03/07/19 23:00 36.3 C L 112 H 18 110/79 93 03/07/19 19:45 36.7 C 114 H 18 105/83 93 03/07/19 16:50 116 H 18 105/83 99 03/07/19 16:40 36.6 C 115 H 18 112/82 99 03/07/19 16:30 115 H 18 113/87 99 03/07/19 16:20 116 H 18 107/82 96 03/07/19 16:12 36.2 C L 104 H 18 113/80 98 03/07/19 13:49 36.5 C 113 H 18 118/87 94 03/07/19 12:55 36.4 C L 111 H 18 127/71 96 Pain Intensity Bilateral Abdomen: Pain Intensity: 6 Left Upper Abdomen: Pain Intensity: 10 Notes Mental Status: alert / awake / arousable Patient Amnestic to Procedure: Yes Nausea / Vomiting: adequately controlled Pain: adequately controlled Airway Patency, RR, SpO2: stable & adequate BP & HR: stable & adequate Hydration State: stable & adequate Anesthetic Complications: no major complications apparent
[2019-03-08] MEDS: FAMOTIDINE 20 MG in SYRINGE 3 ML IV SCH ×2 (10:31→20:36)
[2019-03-08] MEDS: DEXTROSE 5% 1,000 ML IV SCH (16:07)
--- NOTE | 2019-03-08 16:18 | Hospitalist Progress Note ---
Date of Service March 08, 2019 Assessment & Plan (1) Gastric outlet obstruction: Gastric outlet obstruction/secondary to progressive carcinomatosis and traction around the duodenum. -EGD without clear obstruction and no stent was placed NG tube was removed after EGD He is barely tolerating sips and chips but wants to try clears Would replace NG tube if having worsening nausea/vomiting or pain - Continue pain meds, anti-emetics, Pepcid, lorazepam -Appreciate GI and surgical consultations-surgery says J-tube would not be beneficial and patient states he would not want a feeding tube -His prognosis is quite poor (2) Hypernatremia: Due to H20 loss from his NG tube and getting high Na load from IV fluids. Urine osms showed appropriately concentrated urine with mixed urine Na. - Switched to D5w on 03/06 with improvement from 155 -> 144 and stable - Will continue D5w at lower rate to prevent hyponatremia. (3) Colonic mass: Patient has a history of cecal carcinoma with abdominal carcinomatosis. - Follows with Dr. Chaudhry - Has seen Dr. Darling at [facility] in [place] and was told there is nothing further that can be done for him - No inpatient needs at present -Discussed with his oncologist on the phone today-he recommends no further treatment as the patient could not tolerate it and would likely provide no benefit. Follow-up in the office after discharge (4) Nausea, vomiting and diarrhea: Due to gastric outlet obstruction. - Plan as above (5) Diabetes: - Hold oral medications controlled with sliding scale insulin (6) High blood pressure: As outpatient, he is on amlodipine, metoprolol tartrate, and valsartan. - Given his lack of PO intake, BP has been normal off his oral meds. BP is controlled here - Hold oral meds - IV hydralazine to use as needed (7) Pain: Due to abdominal cancer and gastric outlet obstruction. - Currently requiring IV pain medications due to being NPO. -He is likely still in pain after the obstruction is relieved as his pain is very likely related to the cancer itself as well. Patient and are understanding of this. (8) DVT prophylaxis: SCDs - Heparin was held for his procedure - Given his cancer; will switch to Lovenox now Disposition-remain hospitalized, advance diet as tolerated, if fails, would likely need [facility] PT/OT consults placed Subjective Sipping water and ice chips today, having diffuse abdominal pain, some nausea. Pt states he would never want a feeding tube. at bedside reports they were told by previous hospitalist that they would be transferred out if he could not tolerate p.o. here-I questioned why and they thought maybe for some experimental type of treatment for his condition? I discussed the case with his primary oncologist, Dr. Chaudhry, who said the only reason to transfer would be if there was a surgical procedure that could not be done here that was desired. Otherwise, he would not tolerate any further chemotherapy and most appropriate plan of action at this point would be to go back on hospice. is also concerned that he is very weak. Review of Systems All systems reviewed & are unremarkable except as noted in HPI & below Physical Exam Vital Signs (Past 24 Hours): Last Vital Signs Temp 36.5 C 03/08/19 11:52 Pulse 97 H 03/08/19 11:52 Resp 16 03/08/19 11:52 BP 116/81 03/08/19 11:52 Pulse Ox 92 03/08/19 11:52 Constitutional: WD/WN, vitals as above (Alopecia) Eyes: PERRL, conjunctivae normal, anicteric sclerae ENMT: external ear and nose normal, oropharynx normal Neck: trachea midline, no thyromegaly Respiratory: normal respiratory effort, lungs clear to auscultation Cardiovascular: RRR, no murmur, no edema Gastrointestinal (Abdomen): Inspection/Auscultation: normal bowel sounds; + abdomen abnormal to inspection (Large surgical incisional scar well-healed) and abdomen not distended Percussion/Palpation: + abdomen tender (Diffusely with voluntary guarding) and abdomen soft; abdomen not rigid Musculoskeletal: Extremities: extremities normal to inspection; no cyanosis and no clubbing Skin: no rashes, warm and dry Neurologic: moves all extremities and awake; no focal motor deficits Psychiatric: A+Ox3, euthymic affect Results & Data Laboratory Results 03/08/19 03/08/19 Range/Units 17:48 11:40 POC Glucose 128 H 147 H (70-99) CBC and BMP within normal limits
[2019-03-09] MEDS: HYDROmorphone INJ 1 MG/ML SYRINGE IV PRN ×5 (01:37→23:38)
[2019-03-09] MEDS: FAMOTIDINE 20 MG in SYRINGE 3 ML IV SCH ×2 (07:54→21:43)
[2019-03-09 08:15] LABS: Basophils # (auto) 0.01 K/uL (0-0.2); Basophils % (auto) 0.1 %; Eosinophils # (auto) 0.06 K/uL (0-0.5); Eosinophils % (auto) 0.6 %; Hematocrit (blood only) 39.5 % (42-52); Immature Granulocytes # (auto) 0.03 K/uL (0.00-0.02); Immature Granulocytes % (auto) 0.3 %; Lymphocytes # (auto) 1.31 K/uL (1.2-3.4); Lymphocytes % (auto) 12.3 %; Mean Corpuscular Hgb Conc 32.9 g/dL (32-36); Mean Corpuscular Volume 94.3 fL (80-100); Mean Platelet Volume 9.5 fL (7.4-10.4); Monocytes % (auto) 10.3 %; Neutrophils # (auto) 8.17 K/uL (1.4-6.5); Neutrophils % (auto) 76.4 %; Platelet Count 163 K/uL (130-400); RDW Coefficient of Variation 15.6 % (11.5-14.5); RDW Standard Deviation 53.7 fL (36.4-46.3); Red Blood Count 4.19 M/uL (4.7-6.1); White Blood Count 10.68 K/uL (4.8-10.8)
[2019-03-09 08:41] LABS: BUN Creatinine Ratio 22.5 (10-20); Calcium 8.6 mg/dl (8.5-10.1); Creatinine Clr Calc Pharmacy 64.4 ml/min; Est GFR (African American) 81.2; Est GFR (Non-African American) 70.1; Magnesium 2.1 mg/dl (1.8-2.4); Phosphorus 3.1 mg/dl (2.5-4.9); Potassium 3.8 mmol/L (3.5-5.1)
[2019-03-09] MEDS: DEXTROSE 5% 1,000 ML IV SCH (10:38)
[2019-03-09] MEDS: ENOXAPARIN INJ 40 MG/0.4 ML SYR SQ SCH (10:39)
[2019-03-09] MEDS: ONDANSETRON INJ 2 MG/ML 2 ML VIAL IV PRN (10:47)
--- NOTE | 2019-03-09 14:26 | Hospitalist Progress Note ---
Date of Service March 09, 2019 Assessment & Plan (1) Gastric outlet obstruction: Gastric outlet obstruction/secondary to progressive carcinomatosis and traction around the duodenum. -EGD without clear obstruction and no stent was placed NG tube was removed after EGD Today he is passing flatus and tolerating clear liquids diet -will advance to full liquids diet which is pretty much what he is been on for the last month at home prior to admission-would be hesitant to advance beyond that in case of recurrent obstruction Would replace NG tube if having worsening nausea/vomiting or pain - Continue pain meds, anti-emetics, Pepcid, lorazepam -Appreciate GI and surgical consultations-surgery says J-tube would not be beneficial and patient states he would not want a feeding tube -His prognosis is quite poor (2) Hypernatremia: Due to H20 loss from his NG tube and getting high Na load from IV fluids. Urine osms showed appropriately concentrated urine with mixed urine Na. - Switched to D5w on 03/06 with improvement from 155 -> 142 and continuing to improve - Will continue D5w 50 mL's per hour until taking adequate p.o. 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 Status post ileocecectomy - Follows with Dr. Chaudhry - Has seen Dr. Darling at [facility] in [place] and was told there is nothing further that can be done for him - No inpatient needs at present -Discussed with his oncologist on the phone on 03/08-he recommends no further treatment as the patient could not tolerate it and would likely provide no benefit. Follow-up in the office after discharge (4) Nausea, vomiting and diarrhea: Due to gastric outlet obstruction. Nausea mildly persists but is improved, vomiting resolved (5) Diabetes: - Hold oral medications controlled with sliding scale insulin (6) High blood pressure: As outpatient, he is on amlodipine, metoprolol tartrate, and valsartan. - Given his lack of PO intake, BP has been normal off his oral meds. BP is controlled here - Hold oral meds - IV hydralazine to use as needed (7) Pain: Due to abdominal cancer and gastric outlet obstruction. - Currently requiring IV pain medications -will encourage RN to try the Roxanol instead to see if his pain is relieved with oral medication -He is likely still in pain after the obstruction is relieved as his pain is very likely related to the cancer itself as well. Patient and are understanding of this. (8) DVT prophylaxis: SCDs, Lovenox SQ Disposition-remain hospitalized, advance diet as tolerated, if fails, would likely need to progress to [facility]ice [facility] PT/OT consults placed and pending thinks he likely needs placement at a [facility] facility prior to returning home with home hospice Subjective Patient feeling a little better today, less pain and less nausea. He is tolerating clear liquids diet and is passing flatus. No bowel movement yet. He would like to get out of bed to a chair. Physical therapy did not come and work with him today. Review of Systems All systems reviewed & are unremarkable except as noted in HPI & below Physical Exam Vital Signs (Past 24 Hours): Last Vital Signs Temp 36.5 C 03/09/19 08:00 Pulse 107 H 03/09/19 08:00 Resp 18 03/09/19 08:00 BP 123/88 03/09/19 08:00 Pulse Ox 94 03/09/19 08:00 Constitutional: WD/WN, vitals as above (Alopecia) Eyes: PERRL, conjunctivae normal, anicteric sclerae Neck: trachea midline, no thyromegaly Respiratory: normal respiratory effort, lungs clear to auscultation Cardiovascular: RRR, no murmur, no edema Gastrointestinal (Abdomen): Inspection/Auscultation: normal bowel sounds; + abdomen abnormal to inspection (Large surgical incisional scar well-healed) and abdomen not distended Percussion/Palpation: + abdomen tender (Diffusely with voluntary guarding) and abdomen soft; abdomen not rigid Musculoskeletal: Extremities: extremities normal to inspection; no cyanosis and no clubbing Skin: no rashes, warm and dry Neurologic: moves all extremities and awake; no focal motor deficits Psychiatric: A+Ox3, euthymic affect Results & Data Laboratory Results 03/09/19 03/09/19 03/09/19 Range/Units 11:54 07:58 07:58 WBC 10.68 (4.8-10.8) K/uL RBC 4.19 L (4.7-6.1) M/uL Hgb 13.0 L (14.0-18.0) g/dL Hct 39.5 L (42-52) % MCV 94.3 (80-100) fL MCH 31.0 (25-34) pg MCHC 32.9 (32-36) g/dL RDW Std Deviation 53.7 H (36.4-46.3) fL RDW Coeff of Frida 15.6 H (11.5-14.5) % Plt Count 163 (130-400) K/uL MPV 9.5 (7.4-10.4) fL Immature Gran % (Auto) 0.3 % Neut % (Auto) 76.4 % Lymph % (Auto) 12.3 % Shackelford % (Auto) 10.3 % Eos % (Auto) 0.6 % Baso % (Auto) 0.1 % Immature Gran # (Auto) 0.03 H (0.00-0.02) K/uL Neut # (Auto) 8.17 H (1.4-6.5) K/uL Lymph # (Auto) 1.31 (1.2-3.4) K/uL Shackelford # (Auto) 1.10 H (0.11-0.59) K/uL Eos # (Auto) 0.06 (0-0.5) K/uL Baso # (Auto) 0.01 (0-0.2) K/uL Sodium 142 (136-145) mmol/L Potassium 3.8 (3.5-5.1) mmol/L Chloride 110 H (98-107) mmol/L Carbon Dioxide 22 (21-32) mmol/L Anion Gap 10.0 (3-11) BUN 23 H (7-18) mg/dl Creatinine 1.02 (0.6-1.4) mg/dl Est Cr Clr Drug Dosing 64.4 ml/min Est GFR ( Amer) 81.2 Est GFR (Non-Af Amer) 70.1 BUN/Creatinine Ratio 22.5 H (10-20) Glucose 165 H (70-99) mg/dl POC Glucose 157 H (70-99) Calcium 8.6 (8.5-10.1) mg/dl Phosphorus 3.1 (2.5-4.9) mg/dl Magnesium 2.1 (1.8-2.4) mg/dl 03/09/19 03/08/19 Range/Units 07:33 17:48 WBC (4.8-10.8) K/uL RBC (4.7-6.1) M/uL Hgb (14.0-18.0) g/dL Hct (42-52) % MCV (80-100) fL MCH (25-34) pg MCHC (32-36) g/dL RDW Std Deviation (36.4-46.3) fL RDW Coeff of Frida (11.5-14.5) % Plt Count (130-400) K/uL MPV (7.4-10.4) fL Immature Gran % (Auto) % Neut % (Auto) % Lymph % (Auto) % Shackelford % (Auto) % Eos % (Auto) % Baso % (Auto) % Immature Gran # (Auto) (0.00-0.02) K/uL Neut # (Auto) (1.4-6.5) K/uL Lymph # (Auto) (1.2-3.4) K/uL Shackelford # (Auto) (0.11-0.59) K/uL Eos # (Auto) (0-0.5) K/uL Baso # (Auto) (0-0.2) K/uL Sodium (136-145) mmol/L Potassium (3.5-5.1) mmol/L Chloride (98-107) mmol/L Carbon Dioxide (21-32) mmol/L Anion Gap (3-11) BUN (7-18) mg/dl Creatinine (0.6-1.4) mg/dl Est Cr Clr Drug Dosing ml/min Est GFR ( Amer) Est GFR (Non-Af Amer) BUN/Creatinine Ratio (10-20) Glucose (70-99) mg/dl POC Glucose 163 H 128 H (70-99) Calcium (8.5-10.1) mg/dl Phosphorus (2.5-4.9) mg/dl Magnesium (1.8-2.4) mg/dl
[2019-03-09] MEDS: MoRPHine SULFATE 10 MG/0.5 ML UDP PO PRN (17:16)
[2019-03-10] MEDS: DEXTROSE 5% 1,000 ML IV SCH (06:48)
[2019-03-10] MEDS: ENOXAPARIN INJ 40 MG/0.4 ML SYR SQ SCH (08:06)
[2019-03-10] MEDS: ONDANSETRON INJ 2 MG/ML 2 ML VIAL IV PRN ×2 (08:53→18:54)
[2019-03-10] MEDS: HYDROmorphone INJ 1 MG/ML SYRINGE IV PRN ×3 (08:53→21:22)
[2019-03-10] MEDS ORDERED: BISACODYL 10 MG SUPP PR STA (09:41)
[2019-03-10] MEDS: FAMOTIDINE 20 MG in SYRINGE 3 ML IV SCH ×2 (10:30→21:25)
[2019-03-10] MEDS: MoRPHine SULFATE 10 MG/0.5 ML UDP PO PRN (15:22)
--- NOTE | 2019-03-10 17:25 | Hospitalist Progress Note ---
Date of Service March 10, 2019 Assessment & Plan (1) Gastric outlet obstruction: Gastric outlet obstruction/secondary to progressive carcinomatosis and traction around the duodenum. -EGD without clear obstruction and no stent was placed NG tube was removed after EGD Today he is continuing to be passing flatus and tolerating full liquids diet -willcontinue full liquids diet which is pretty much what he is been on for the last month at home prior to admission-would be hesitant to advance beyond that in case of recurrent obstruction Would replace NG tube if having worsening nausea/vomiting or pain - Continue pain meds, anti-emetics, Pepcid, lorazepam -Appreciate GI and surgical consultations-surgery says J-tube would not be beneficial and patient states he would not want a feeding tube -His prognosis is quite poor (2) Hypernatremia: Due to H20 loss from his NG tube and getting high Na load from IV fluids. Urine osms showed appropriately concentrated urine with mixed urine Na. 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 Status post ileocecectomy Has a lot of chronic abdominal pain due to this - Follows with Dr. Chaudhry - Has seen Dr. Darling at [facility] in [place] and was told there is nothing further that can be done for him -Discussed with his oncologist on the phone on 03/08-he recommends no further treatment as the patient could not tolerate it and would likely provide no benefit. Follow-up in the office after discharge -add on Fentanyl patch 12 mcg/hr today -continue ROxanol 20mg as needed, attempt to wean of OV dilaudid so can be discharged -consult Palliative care discussed with pt and family (4) Nausea, vomiting and diarrhea: Due to gastric outlet obstruction. Nausea mildly persists but is improved, vomiting resolved (5) Diabetes: - Hold oral medications controlled with sliding scale insulin (6) High blood pressure: As outpatient, he is on amlodipine, metoprolol tartrate, and valsartan. - Given his lack of PO intake, BP has been normal off his oral meds. BP is controlled here - Hold oral meds - IV hydralazine to use as needed (7) Pain: Due to abdominal cancer and gastric outlet obstruction. - Currently requiring IV pain medications -will encourage RN to try the Roxanol instead to see if his pain is relieved with oral medication -He is likely still in pain after the obstruction is relieved as his pain is very likely related to the cancer itself as well. Patient and are understanding of this. -starting Fentanyl patch as above (8) DVT prophylaxis: SCDs, Lovenox SQ Disposition-remain hospitalized, needs PT/OT evals and hopeful for dc to detention facility or to [facility] with Hospice Palliative Consult Subjective tolerating full liquids but appetite low, passing flatus. Had suppository but no BM, just passed gas today, reports roxanol is keeping his pain down but is willing to trial Fentanyl patch discussed his care at length with partner Jenna at bedside Pt reports he is interested to hear if he could particiapte in any trials for his cancer, but reports she is not able to take him back to [facility], wants him to be comfortable and he is ok with that Review of Systems All systems reviewed & are unremarkable except as noted in HPI & below Physical Exam Vital Signs (Past 24 Hours): Last Vital Signs Temp 36.3 C L 03/10/19 16:00 Pulse 100 H 03/10/19 16:00 Resp 20 03/10/19 16:00 BP 112/94 03/10/19 16:00 Pulse Ox 94 03/10/19 16:00 Constitutional: WD/WN, vitals as above (Alopecia) Eyes: PERRL, conjunctivae normal, anicteric sclerae ENMT: external ear and nose normal, oropharynx normal Neck: trachea midline, no thyromegaly Respiratory: normal respiratory effort, lungs clear to auscultation Cardiovascular: RRR, no murmur, no edema Gastrointestinal (Abdomen): Inspection/Auscultation: normal bowel sounds; + abdomen abnormal to inspection (Large surgical incisional scar well-healed) and abdomen not distended Percussion/Palpation: + abdomen tender (Diffusely with voluntary guarding), abdomen soft and + abdominal mass (RLQ large); abdomen not rigid Musculoskeletal: Extremities: extremities normal to inspection; no cyanosis and no clubbing Skin: no rashes, warm and dry Neurologic: moves all extremities and awake; no focal motor deficits Psychiatric: A+Ox3, euthymic affect Results & Data Laboratory Results 03/10/19 03/10/1919 Range/Units 20:05 16:54 11:58 POC Glucose 136 H 127 H 144 H (70-99) 03/10/19 Range/Units 07:58 POC Glucose 138 H (70-99)
[2019-03-10] MEDS: fentaNYL 12 MCG/HR TDSY TD SCH (18:55)
[2019-03-11] MEDS: CHECK FENTANYL PATCH PLACEMENT SCH ×3 (00:14→16:07)
[2019-03-11] MEDS: HYDROmorphone INJ 1 MG/ML SYRINGE IV PRN ×2 (00:54→07:27)
[2019-03-11] MEDS: HEPARIN 100 UNIT/ML 5ML FLUSH FLUSH PRN ×2 (07:30→08:32)
[2019-03-11] MEDS: ENOXAPARIN INJ 40 MG/0.4 ML SYR SQ SCH (07:31)
[2019-03-11] MEDS: FAMOTIDINE 20 MG in SYRINGE 3 ML IV SCH (08:32)
[2019-03-11] MEDS ORDERED: BISACODYL 10 MG SUPP PR STA (09:32)
--- NOTE | 2019-03-11 10:24 | Palliative Care Consultation ---
Date of Consultation March 11, 2019 Assessment & Plan (1) Palliative care encounter: This is a 78 year old male, DNR, who was admitted on 03/02 from [facility] with intractable nausea, vomiting and consistent lower abdominal pain. It was decided at home with Hospice to revoke Hospice at this time as patient may be interested in aggressive treatment. 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 Chaudhry ([facility]) who has noted that this patient has had intra-abdominal lymph node disease since 03/04. The patient has had a R hemicolectomy and partial omenectomy with a CEA level of 3.2. The patient has done multiple rounds of chemotherapy; first with FOLFOX-6 and then most recently with Avastin/Irinotecan which was not tolerated and discontinued. Dr. Chaudhry has stated most recently that with his increased weight loss and disease progression that risk outweighs benefit and no further curative treatment options are recommended. GI did see this patient on this admission and an EGD was performed and no clear obstruction was noted therefore, no stent placement was needed. An NGT was placed for decompression purposes and removed on 03/07 post scope. Since he has been tolerating a soft diet. He was started on a Fentanyl patch and has Roxanol and Dilaudid for breakthrough. Palliative Care was consulted for symptom/pain management and goals of care. -I met with patient and his significant other of 34 years, Jenna in Room 411. Patient was sitting upright in his bedside chair in [facility]. Patient does have one biological son, Bruce who lives near [facility] but is involved in his care ([phone]) and Jenna has two sons who are not biological but active in his care. I did reach out to the patients son Bruce on the phone who became very defensive with his Dad's decision for comfort measures and said "That's Jenna talking, not Dad" Per Jenna there is significant dynamic between her and Bruce as the patient was really close with her biological son and took resentment to that. Additionally, Bruce lost a brother in a motorcycle accident 20 years ago and his mother most recently to Leukemia. Bruce wants Dad to have a second opinion with Dr. Barker with [facility] for proton therapy. i suggested a conference call with Dad, Dr. Chaudhry and Dr. Nunez. -I did ask patient who he would like to make decisions on his behalf should he not be able to and he did address his significant other, Jenna and they have already met with [facility] and POA is documented. -Patient was fully participating in the conversation and I identified how Palliative Care can be involved with managing his symptoms and discussion of goals of care -Patient was recently home with [facility], whom they were with for 2 weeks and did have a good relationship and would like to continue once discharged. -Jenna expressed concerns about her ability to be the patients sole caregiver. The patient and Jenna stated that they talked at length last night and have decided that home is not the best option for them at this time and would like to move forward with SNF placement. She stated that they live just a few blocks from [facility] and would like that to be their first choice in placement. CM made aware and will discuss further. -PT/OT is working with the patient and he was relatively ambulatory prior to this admission and I feel would do well with SNF rehab with an eventual transition to Hospice. -The patient did express quite firmly that after this admission he does not want to return to the hospital for additional testing, etc. We did complete a POLST form indicating DNR/DNI, comfort measures only, a trial of antibiotics and no artificial feeding tubes/hydration. -We did discuss at length the possibility of requiring decompression via an NGT in his future as his cancer progresses. He did express that he would be willing to have an NGT placed again while at [facility] (or another SNF) purely for decompression and not for feeding. This was reflected on his POLST form under his goals. 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 He stated that he loves to camp in his , [place] and play cards with Jenna, primarily a golf card game. -I did discuss the above with Diana from case management and she will follow up with them directly regarding placement, etc. -Palliative Performance Scale: 50% (2) Cecal cancer: -Patient has metastatic colon cancer s/p ileocecetomy 03/26/18 and is a patient of Dr. Chaudhry ([facility]) who has noted that this patient has had intra- abdominal lymph node disease since 03/04. -The patient has had a R hemicolectomy and partial omenectomy with a CEA level of 3.2. -The patient has done multiple rounds of chemotherapy; first with FOLFOX-6 and then most recently with Avastin/Irinotecan which was not tolerated and discontinued. -Dr. Chaudhry has stated most recently that with his increased weight loss and disease progression that risk outweighs benefit and no further curative treatment options are recommended. -Transitioning from curative to palliative symptom management. (3) Nausea, vomiting and diarrhea: -Pt was admitted on 03/[address] [place] [address] with intractable nausea and vomiting. -GI did see this patient on this admission and an EGD was performed and no clear obstruction was noted therefore, no stent placement was needed. -An NGT was placed for decompression purposes and removed on 03/07 post scope. -Since he has been tolerating a full liquid diet. -Patient vomiting has been controlled and his nausea continues to improve. -He has Zofran ordered 4mg IV Q6 which he has utilized twice over the past 24 hours. We did discuss that should he be discharged and his nausea becomes intractable as it very well may, that a discussion could be held with Hospice to discuss SQ infusion of Zofran. -Additionally, I ordered Decadron 1 mg po BID which can help to alleviate N/V symptoms as well and, possibly, decrease some inflammation around tumor. Patient can not recall being on Decadron before and does not report any agitation related to this in his PMH. -We did discuss at length the possibility of requiring decompression via an NGT in his future as his cancer progresses. He did express that he would be willing to have an NGT placed again while at [facility] (or another SNF) purely for decompression and not for feeding. This was reflected on his POLST form under his goals. -The patients LBM was on 03/04 but is currently attempting to have a BM as I type. -The patient is not on a bowel regimen, but did receive a one time dose of Dulcolax suppository IL today. I am not inclined to order a stool stimulant or softener due to possible worsening of any outlet obstruction. (4) Abdominal pain: -Pt was admitted on 03/[address] [place] [address] with intractable abdominal pain. -Pt reports generalized and consistent RLQ/LLQ abdominal pain. -Currently 7/10 and an acceptable level of pain for him is reported to be 5/10. -Hospitalist started a Fentanyl patch 12mcg TD on 03/10 at 1900. Patient also has Dilaudid 1mg IV Q3 PRN for which he has utilized 4 doses over past 24 hours and Roxanol 20 mg po Q1 which he has utilized 1 dose over the past 24 hours. -For an eventual transition to a SNF, I D/C the IV Dilaudid and decreased the Roxanol to 10mg po Q2 PRN for breakthrough pain. We will evaluate the 24 hour utilization of the Roxanol to determine a dose change with the Fentanyl patch. -The patient states that when he does receive the Roxanol that it is helpful (here at the hospital and when he was at home) -Will re-evaluate pain medication regimen on 03/12. Supervising Physician Co-Signing Physician Notes Chart reviewed, pt seen and examined, pt's S.O., cousin and cousin's at bedside Collaborated with DWAIN Amor PE: Pt awake and alert, appears comfortable HEENT: EOMI, hearing WNL Resp: unlabored CV: RR ABD: distended, RLQ tenderness to light palpation Agree with above note, assessment and plan - can increase Decadron to 2-4 mg daily if no significant SE on low dose Decadron. Will cont to follow and assist with medical decision making. History of Present Illness Reason for Consultation: goals of care Requesting Physician: Dr. August Attending Physician: Elo August MD History of Present Illness This is a 78 year old male, DNR, who was admitted on 03/[address] [place] [address] with intractable nausea, vomiting and consistent lower abdominal pain. It was decided at home with Hospice to revoke Hospice at this time as patient may be interested in aggressive treatment. 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 Chaudhry ([facility]) who has noted that this patient has had intra-abdominal lymph node disease since 03/04. The patient has had a R hemicolectomy and partial omenectomy with a CEA level of 3.2. The patient has done multiple rounds of chemotherapy; first with FOLFOX-6 and then most recently with Avastin/Irinotecan which was not tolerated and discontinued. Dr. Chaudhry has stated most recently that with his increased weight loss and disease progression that risk outweighs benefit and no further curative treatment options are recommended. GI did see this patient on this admission and an EGD was performed and no clear obstruction was noted therefore, no stent placement was needed. An NGT was placed for decompression purposes and removed on 03/07 post scope. Since he has been tolerating a soft diet. He was started on a Fentanyl patch and has Roxanol and Dilaudid for breakthrough. Palliative Care was consulted for symptom/pain management and goals of care. Please see assessment and plan for further details. Thank you kindly for involving palliative care in this unfortunate patient. We will follow closely. Allergies Allergy/AdvReac Type Severity Reaction Status Date / Time clopidogrel AdvReac Unknown NAUSEA AND Verified 01/14/19 11:37 VOMITING ABD CRAMPS CHEMOTHERAPY TREATMENT Allergy Severe CHEST Uncoded 01/14/19 11:37 PAIN, THROAT SWELLING, DIFFICULTY BREATHING. Home Medications Home Medications Medication Instructions Recorded Confirmed Type 5-Fluorouracil 5,280 mg IV DIRECTED 01/14/19 03/02/19 History amlodipine 5 mg PO DAILY 01/14/19 03/02/19 History aspirin 81 mg PO DAILY 01/14/19 03/02/19 History atorvastatin 20 mg PO DAILY 01/14/19 03/02/19 History docusate sodium [Colace] 100 mg PO BID 01/14/19 03/02/19 History flaxseed oil 1,300 mg PO DIRECTED 01/14/19 03/02/19 History glyburide 2.5 mg PO QAM 01/14/19 03/02/19 History metformin 500 mg PO BIDM 01/14/19 03/02/19 History metoprolol tartrate 50 mg PO BID 01/14/19 03/02/19 History mirtazapine 15 mg PO DIRECTED PRN 01/14/19 03/02/19 History nitroglycerin 0.4 mg BUCCAL DIRECTED PRN 01/14/19 03/02/19 History ondansetron HCl [Zofran] 8 mg PO TID PRN 01/14/19 03/02/19 History oxycodone 5 mg PO DIRECTED PRN 01/14/19 03/02/19 History pantoprazole [Protonix] 40 mg PO DAILY 01/14/19 03/02/19 History prochlorperazine maleate 10 mg PO Q6 PRN 01/14/19 03/02/19 History tramadol 50 mg PO Q6H PRN 01/14/19 03/02/19 History valsartan 80 mg PO DAILY 01/14/19 03/02/19 History morphine 1 dose PO UD PRN 03/02/19 03/02/19 History Patient History Medical History Diabetes (Chronic) Renal colic (Acute) High blood pressure (Chronic) History of colon cancer Surgical History History of colon surgery Hx of heart artery stent Family History Other Family history non-contributory Social History Communication Ability: Effective Beliefs That Will Affect Care: Amish marital status: Current Living Situation: Significant Other current occupational status: retired Other Information That Helps Us Care for You: No Feels Safe at Home: Yes Safety Concerns: Feels Safe At This Time Smoking Status: Former smoker Hx Alcohol Use: No Hx Substance Use: No Review of Systems General: Pt reports consistent 7/10 lower abdominal pain. HEENT: Pt denies HERNANDEZ, visual changes. Pt reports feeling dizzy at times with a mbulation CV: Pt denies chest pain, palpitations Resp: Pt denies SOB and breathing changes GI: Pt reports generalized and consistent RLQ/LLQ abdominal pain. Currently 7/10 and an acceptable level of pain for him is reported to be 5/10. Pt reports + flatulance. : Skin: Pt reports no skin changes no new rashes Psych: Pt reports feeling content with his current disease state and denies SI/SA Physical Exam Vital Signs (Past 24 Hours): Last Vital Signs Temp 36.6 C 03/11/19 07:40 Pulse 104 H 03/11/19 07:40 Resp 18 03/11/19 07:40 BP 125/86 03/11/19 07:40 Pulse Ox 95 03/11/19 07:40 Constitutional: well developed and + well hydrated Eyes: PERRL, conjunctivae normal, anicteric sclerae ENMT: external ear and nose normal, oropharynx normal Neck: trachea midline, no thyromegaly Respiratory: normal respiratory effort, lungs clear to auscultation Cardiovascular: Rate/Rhythm: regular rate and regular rhythm Heart Sounds: normal S1 and normal S2 Extremities: + edema (+1 B/L LE) Gastrointestinal (Abdomen): Percussion/Palpation: abdomen soft Time Spent Midlevel Total time spent 100 minutes with > 50% of that time spent reviewing the chart, assessing the patient, managing symptoms and pain, discussing goals of care and completing a POLST form at the bedside.
[2019-03-11] MEDS: MoRPHine SULFATE 10 MG/0.5 ML UDP PO PRN ×2 (11:34→15:53)
[2019-03-11] MEDS: dexAMETHasone 1 MG TAB PO SCH (16:00)
--- NOTE | 2019-03-11 16:06 | Hospitalist Progress Note ---
Date of Service March 11, 2019 Assessment & Plan (1) Gastric outlet obstruction: Gastric outlet obstruction/secondary to progressive carcinomatosis and traction around the duodenum. -EGD without clear obstruction and no stent was placed NG tube was removed after EGD Today he is continuing to be passing flatus and tolerating full liquids diet -will continue full liquids diet which is pretty much what he is been on for the last month at home prior to admission-would be hesitant to advance beyond that in case of recurrent obstruction -add Boost bid for improved nutrition Would replace NG tube if having worsening nausea/vomiting or pain - Continue pain meds as below, anti-emetics, lorazepam, change IV pepcid to po protonix from home -Appreciate GI and surgical consultations-surgery says J-tube would not be beneficial and patient states he would not want a feeding tube -His prognosis is quite poor (2) Hypernatremia: Due to H20 loss from his NG tube and getting high Na load from IV fluids. Urine osms showed appropriately concentrated urine with mixed urine Na. 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 Status post ileocecectomy Has a lot of chronic abdominal pain due to this - Follows with Dr. Chaudhry - Has seen Dr. Darling at [facility] in [place] and was told there is nothing further that can be done for him -Discussed with his oncologist on the phone on 03/08-he recommends no further treatment as the patient could not tolerate it and would likely provide no benefit. Follow-up in the office after discharge -added on Fentanyl patch 12 mcg/hr on 03/10 -continue Roxanol but Palliative care decreased dose to 10mg q2h as needed,dc IV Dilaudid -consult Palliative care appreciated (4) Nausea, vomiting and diarrhea: Due to gastric outlet obstruction. Nausea mildly persists but is improved, vomiting resolved (5) Diabetes: - Hold oral medications controlled with sliding scale insulin (6) High blood pressure: As outpatient, he is on amlodipine, metoprolol tartrate, and valsartan. - Given his lack of PO intake, BP has been normal off his oral meds. BP is controlled here - Hold oral meds - IV hydralazine to use as needed (7) Pain: Due to abdominal cancer and gastric outlet obstruction. with pain med changes as above (8) DVT prophylaxis: SCDs, Lovenox SQ Disposition-remain hospitalized,Plan for dc to SNF when bed available with transition to custodial care and Hospice when appropriate Referral placed to [facility] Feeling better today. Is passing flatus, pain better controlled. RN reports no BM after the suppository today but she could feel stool when she placed the suppository. Pt says only a mild bout of nausea with being in the chair for a few hours, no vomiting. I discussed his care with Palliative Care ELECTRIC SYSTEM OPERATOR Review of Systems All systems reviewed & are unremarkable except as noted in HPI & below Physical Exam Vital Signs (Past 24 Hours): Last Vital Signs Temp 36.6 C 03/11/19 07:40 Pulse 104 H 03/11/19 07:40 Resp 18 03/11/19 07:40 BP 125/86 03/11/19 07:40 Pulse Ox 94 03/11/19 14:28 Constitutional: WD/WN, vitals as above (Alopecia) Eyes: PERRL, conjunctivae normal, anicteric sclerae Neck: trachea midline, no thyromegaly Respiratory: normal respiratory effort, lungs clear to auscultation Cardiovascular: RRR, no murmur, no edema Gastrointestinal (Abdomen): Inspection/Auscultation: normal bowel sounds; + abdomen abnormal to inspection (Large surgical incisional scar well-healed) and abdomen not distended Percussion/Palpation: + abdomen tender (Diffusely with voluntary guarding), abdomen soft and + abdominal mass (RLQ large); abdomen not rigid Musculoskeletal: Extremities: extremities normal to inspection; no cyanosis and no clubbing Skin: no rashes, warm and dry Neurologic: moves all extremities and awake; no focal motor deficits Psychiatric: A+Ox3, euthymic affect Results & Data Laboratory Results 03/11/19 03/11/19 03/10/19 Range/Units 11:43 07:53 20:05 POC Glucose 119 H 140 H 136 H (70-99) 03/10/19 Range/Units 16:54 POC Glucose 127 H (70-99)
[2019-03-11] MEDS: CALCIUM CARBONATE 500 MG CHEWABLE TAB PO PRN (16:42)
[2019-03-11] MEDS: ONDANSETRON INJ 2 MG/ML 2 ML VIAL IV PRN (21:01)
[2019-03-12] MEDS: CHECK FENTANYL PATCH PLACEMENT SCH ×4 (00:09→23:54)
[2019-03-12] MEDS: HEPARIN 100 UNIT/ML 5ML FLUSH FLUSH PRN (00:12)
[2019-03-12] MEDS: MoRPHine SULFATE 10 MG/0.5 ML UDP PO PRN ×5 (06:17→21:37)
[2019-03-12] MEDS ORDERED: D5W AND 1/2NSS + 20MEQ KCL 20 MEQ/1,000 ML BAG IV SCH (07:00)
[2019-03-12] MEDS: PANTOprazole 40 MG TAB PO SCH (08:07)
[2019-03-12] MEDS: ENOXAPARIN INJ 40 MG/0.4 ML SYR SQ SCH (08:11)
[2019-03-12] MEDS ORDERED: BISACODYL 10 MG SUPP PR STA (08:13)
[2019-03-12] MEDS: dexAMETHasone 1 MG TAB PO SCH ×2 (08:20→15:48)
[2019-03-12] MEDS ORDERED: PROCHLORPERAZINE 25 MG SUPP PR PRN (08:39)
[2019-03-12] MEDS ORDERED: BISACODYL 10 MG SUPP PR ONE (10:15)
[2019-03-12] MEDS ORDERED: SOD PHOSPHATE/SOD BIPHOSPHATE ENEMA 132 ML BTL PR STA (13:56)
--- NOTE | 2019-03-12 14:05 | Hospitalist Progress Note ---
Date of Service March 12, 2019 Assessment & Plan (1) Gastric outlet obstruction: Gastric outlet obstruction/secondary to progressive carcinomatosis and traction around the duodenum. -EGD without clear obstruction and no stent was placed NG tube was removed after EGD Previously was passing flatus and tolerating full liquids diet, with one episode of vomiting last night -DC IV fluids started overnight as he is volume overloaded -Continue to be aggressive with bowel regimen as he is severely constipated-give enemas today and bisacodyl suppository -will continue full liquids diet which is pretty much what he is been on for the last month at home prior to admission-would be hesitant to advance beyond that in case of recurrent obstruction -added Boost bid for improved nutrition Would replace NG tube if having worsening nausea/vomiting or pain after discharge to the shelter facility - Continue pain meds as below, anti-emetics, lorazepam, po protonix -Appreciate GI and surgical consultations-surgery says J-tube would not be beneficial and patient states he would not want a feeding tube -His prognosis is quite poor (2) Hypernatremia: Due to H20 loss from his NG tube and getting high Na load from IV fluids. Urine osms showed appropriately concentrated urine with mixed urine Na. 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 Status post ileocecectomy Has a lot of chronic abdominal pain due to this - Follows with Dr. Chaudhry - Has seen Dr. Darling at [facility] in [place] and was told there is nothing further that can be done for him -Discussed with his oncologist on the phone on 03/08-he recommends no further treatment as the patient could not tolerate it and would likely provide no benefit. Follow-up in the office after discharge -added on Fentanyl patch 12 mcg/hr on 03/10 which is really helping -continue Roxanol 10mg q2h as needed -consult Palliative care appreciated (4) Nausea, vomiting and diarrhea: Due to gastric outlet obstruction. Nausea mildly persists but is improved, vomiting x1 last night but for the most part resolved -No diarrhea at all, in fact is severely constipated -Continue aggressive bowel regimen (5) Diabetes: - Hold oral medications controlled with sliding scale insulin (6) High blood pressure: As outpatient, he is on amlodipine, metoprolol tartrate, and valsartan. - Given his lack of PO intake, BP has been normal off his oral meds. BP is controlled here - Hold oral meds no need to restart -No need for IV hydralazine-discontinued (7) Pain: Due to abdominal cancer and gastric outlet obstruction. with pain med changes as above (8) DVT prophylaxis: SCDs, Lovenox SQ Disposition-remain hospitalized,Plan for dc to SNF hopefully tomorrow if can have a bowel movement and vomiting resolved, with transition to steward/stewardess third care and Hospice when appropriate Referral placed to [facility] Had an episode of vomiting last night, none since then. No flatus today. Did pass a small amount of stool later in the day after an enema. Abdominal pain is well controlled on Roxanol alone has only taken 2 doses last 24 hours Did require IV Compazine last night was restarted on IV fluids by the overnight resident. Still remains with dyspnea on exertion. Was out of bed to chair today. Review of Systems All systems reviewed & are unremarkable except as noted in HPI & below Physical Exam Vital Signs (Past 24 Hours): Last Vital Signs Temp 36.7 C 03/12/19 11:59 Pulse 106 H 03/12/19 11:59 Resp 16 03/12/19 11:59 BP 129/74 03/12/19 11:59 Pulse Ox 95 03/12/19 11:59 Constitutional: WD/WN, vitals as above (Alopecia) Eyes: PERRL, conjunctivae normal, anicteric sclerae ENMT: external ear and nose normal, oropharynx normal Neck: trachea midline, no thyromegaly Respiratory: normal respiratory effort; no respiratory distress Auscultation: + crackles (Bibasilar) Cardiovascular: RRR, no murmur, no edema Gastrointestinal (Abdomen): Inspection/Auscultation: normal bowel sounds; + ab domen abnormal to inspection (Large surgical incisional scar well-healed) and abdomen not distended Percussion/Palpation: + abdomen tender (Diffusely with voluntary guarding), abdomen soft and + abdominal mass (RLQ large); abdomen not rigid Musculoskeletal: Extremities: extremities normal to inspection; no cyanosis an d no clubbing Skin: no rashes, warm and dry Neurologic: moves all extremities and awake; no focal motor deficits Psychiatric: A+Ox3, euthymic affect Results & Data Laboratory Results 03/12/19 03/12/19 03/12/19 Range/Units 20:02 16:23 11:23 POC Glucose 155 H 158 H 126 H (70-99) 03/12/19 Range/Units 07:31 POC Glucose 120 H (70-99)
[2019-03-12] MEDS: CALCIUM CARBONATE 500 MG CHEWABLE TAB PO PRN (15:03)
--- NOTE | 2019-03-12 16:13 | Palliative Care Progress Note ---
Date of Service March 12, 2019 Assessment & Plan (1) Palliative care encounter: Pt is a 78 year old male, who was admitted on 03/[address] [place] [address] with intractable nausea, vomiting and consistent lower abdominal pain. It was decided at home with Hospice to revoke Hospice at this time as patient may be interested in aggressive treatment. 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 Chaudhry ([facility]) who has noted that this patient has had intra-abdominal lymph node disease since 03/04. The patient has had a R hemicolectomy and partial omenectomy with a CEA level of 3.2. The patient has done multiple rounds of chemotherapy; first with FOLFOX-6 and then most recently with Avastin/Irinotecan which was not tolerated and discontinued. Dr. Chaudhry has stated most recently that with his increased weight loss and disease progression that risk outweighs benefit and no further curative treatment options are recommended. GI did see this patient on this admission and an EGD was performed and no clear obstruction was noted therefore, no stent placement was indicated. An NGT was placed for decompression purposes and removed on 03/07 post scope. Since he has been tolerating sips and bites. He was started on a Fentanyl patch at 12 mcg and has Roxanol for breakthrough pain - he required 3 doses of 10 mg in the past 24 hours. P was passing gas yesterday, but states he has not today. + BS all 4 quad, high pitched in RLQ. Less abd pain on exam today on current pain meds. Pt's significant other of 34 years, Jenna, at bedside. Jenna was considering placement at 2 facilities with Hospice discussed that these facilities would not have skilled staff to manage an NG tube when he would need it to prevent pt from vomiting as his bowel obstruction worsens. Patient was lying in bed, appears comfortable, taking a few bites of a popsicle. -Patient was recently home with [facility], whom they were with for 2 weeks and did have a good relationship and would like to continue with them once discharged. -We did discuss at length the possibility of requiring decompression via an NGT in his future as his cancer and bowel obstruction progresses. He did express that he would be willing to have an NGT placed again if needed to prevent vomiting. This was reflected on his POLST form under his goals. -I did discuss the above with Diana from case management and she will follow up with them regarding placement, etc. (2) Abdominal pain: Well-controlled on current regime of fentanyl patch at 12 mcg with as needed Roxanol at 10 mg as needed (3) Gastric outlet obstruction: Patient has not passed gas today-indicating increased obstruction-increase Decadron to 4 mg daily (4) Colonic mass: Causing bowel obstruction Subjective Patient awake and alert, no acute distress-patient seen and examined, patient's significant other arrived later. Patient reports he has not yet passed gas today-was passing gas yesterday. Patient was only able to take a few bites of a popsicle. Patient tolerating Decadron at 1 mg twice daily-no issues with sleep or agitation-since he has not passed any gas today would increase it to 4 mg daily and monitor for any improvement in obstruction. Patient states his pain is well controlled on current regime of a fentanyl patch at 12 mcg and as needed Roxanol-patient required 3 doses of 10 mg Roxanol in the past 24 hours for breakthrough pain. Discussed with both patient and significant other that patient would need to go to a facility that had jail in case an NG tube was placed in order to manage its care. Patient's main concerns are pain and nausea/vomiting control. Physical Exam Vital Signs (Past 24 Hours): Last Vital Signs Temp 36.4 C L 03/12/19 14:57 Pulse 104 H 03/12/19 14:57 Resp 18 03/12/19 14:57 BP 117/77 03/12/19 14:57 Pulse Ox 94 03/12/19 14:57 Physical Exam: PE: Patient appears comfortable, states abdominal pain is well controlled HEENT: EOMI, hearing within normal limits Respirations: Unlabored, equal breath sounds CV: Regular rate Abdomen: Distended, less tenderness right lower quadrant. Positive bowel sounds in all 4 quadrants, however high-pitched bowel sounds and right lower quadrant Neuro: Alert and oriented Time Spent Attending Total time spent 40 minutes with greater than 50% of the time spent at bedside discussing management of patient's pain as well as nauseavomiting. Discussed treatment options as well as plan of care. Discussed with patient and significant other the type of facility that will be required in order to meet his needs to remain comfortable as his disease progresses.
[2019-03-12] MEDS: ONDANSETRON 4 MG OD TAB PO PRN (18:33)
[2019-03-12] MEDS: MINERAL OIL ENEMA 133 ML BTL PR ONE ×2 (18:36→22:03)
[2019-03-13] MEDS: MoRPHine SULFATE 10 MG/0.5 ML UDP PO PRN (02:21)
[2019-03-13] MEDS ORDERED: BISACODYL 10 MG SUPP PR STA (08:51)
[2019-03-13] MEDS: dexAMETHasone 1 MG TAB PO SCH (09:02)
[2019-03-13] MEDS: PANTOprazole 40 MG TAB PO SCH (09:02)
[2019-03-13] MEDS: CHECK FENTANYL PATCH PLACEMENT SCH ×2 (09:03→16:32)
[2019-03-13] MEDS: ENOXAPARIN INJ 40 MG/0.4 ML SYR SQ SCH (09:04)
[2019-03-13 11:12] VITALS: BP 124/80; TEMP 98.1
[2019-03-13] MEDS: ONDANSETRON 4 MG OD TAB PO PRN ×2 (12:45→18:02)
--- NOTE | 2019-03-13 14:06 | Discharge Summary ---
Date of Service March 13, 2019 Admission HPI Per Admitting Provider The patient is a 78-year-old male who is status post ileocecectomy on 03/26/18 for metastatic colon cancer. He has been following with Dr. Chaudhry from [facility] oncology, and has been on hospice at home, until today, when he developed intractable nausea and vomiting, hospice was discontinued, and he was brought to the emergency department for assessment. In the emergency department workup included imaging and laboratory studies. CT of abdomen and pelvis revealed no bowel obstruction but did reveal moderate gastric distention with narrowing at the level of the proximal duodenum, possibly secondary to adjacent peritoneal tethering with carcinomatosis. Clinical correlation was suggested to exclude gastric outlet obstruction. There is also progressive peritoneal carcinomatosis with trace abdominopelvic ascites. Decision was made to admit the patient and to place NG tube to low intermittent suction in the ED for decompression. GI Dr. Mcgovern, who was covering for Dr. Rocha, agreed that the above should be done, and later can be determined by Dr. Rocha if any more significant treatment should be performed. Principal Diagnosis Metastatic cecal cancer, gastric outlet obstruction, abdominal pain, nausea/vomiting, severe constipation Discharge Exam Constitutional WD/WN, vitals as above (Alopecia) Eyes PERRL, conjunctivae normal, anicteric sclerae Neck trachea midline, no thyromegaly Respiratory normal respiratory effort, lungs clear to auscultation normal respiratory effort; no respiratory distress Cardiovascular RRR, no murmur, no edema Gastrointestinal (Abdomen) Inspection/Auscultation: normal bowel sounds; + abdomen abnormal to inspection (Large surgical incisional scar well-healed) and abdomen not distended Percussion/Palpation: + abdomen tender (Diffusely with voluntary guarding), abdomen soft and + abdominal mass (RLQ large); abdomen not rigid Rectal Exam: + fecal impaction (Manually disimpacted, had large amount of soft and liquid brown stool palpated in the rectal vault which was released) Musculoskeletal Extremities: extremities normal to inspection; no cyanosis and no clubbing Skin no rashes, warm and dry Neurologic moves all extremities and awake; no focal motor deficits Psychiatric A+Ox3, euthymic affect Discharge Data Allergies Allergy/AdvReac Type Severity Reaction Status Date / Time clopidogrel AdvReac Unknown NAUSEA AND Verified 01/14/19 11:37 VOMITING ABD CRAMPS CHEMOTHERAPY TREATMENT Allergy Severe CHEST Uncoded 01/14/19 11:37 PAIN, THROAT SWELLING, DIFFICULTY BREATHING. Consultations Consult Gastroenterology Consult General Surgery Oncology Palliative Care Procedures Performed Operation Date: 03/07/19 13:40 Actual Procedures p Esophagogastroduodenoscopy with biopsies(Not Applicable) - Arianne Mcgovern Ordered Studies 03/02/19 17:02 CT abd pelvis wo con Stat Chest x-ray x2 Hospital Course (1) Gastric outlet obstruction: Gastric outlet obstruction/secondary to progressive carcinomatosis and traction around the duodenum. -EGD without clear obstruction and no stent was placed NG tube was removed after EGD Is now passing flatus and tolerating full liquids diet, with intermittent nausea that is relieved with sublingual ondansetron -Continue to be aggressive with bowel regimen as he has been severely constipated-manually disimpacted on the day of discharge with relief, continue bisacodyl suppository daily, docusate syrup 50 mg twice daily, and daily enemas as needed -will continue full liquids diet -would be hesitant to advance beyond that in case of recurrent obstruction -added Boost bid for improved nutrition Would replace NG tube if having worsening nausea/vomiting or pain after discharge to the [facility] facility - Continue pain meds as below, anti-emetics, lorazepam, po protonix -Appreciate GI and surgical consultations-surgery says J-tube would not be beneficial and patient states he would not want a feeding tube -His prognosis is quite poor (2) Hypernatremia: Due to H20 loss from his NG tube and getting high Na load from IV fluids. Urine osms showed appropriately concentrated urine with mixed urine Na. 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 Status post ileocecectomy Has a lot of chronic abdominal pain due to this which is now better controlled - Follows with Dr. Chaudhry - Has seen Dr. Darling at [facility] in [place] and was told there is nothing further that can be done for him -Discussed with his oncologist on the phone on 03/08-he recommends no further treatment as the patient could not tolerate it and would likely provide no benefit. Follow-up in the office after discharge -added on Fentanyl patch 12 mcg/hr on 03/10 which is really helping -continue Roxanol 10mg q2h as needed -consult Palliative care appreciated -His oncologist has told him that there is no treatment left for him-he should transition back to hospice when he feels ready to -He should follow-up with his oncologist again within 1 week after discharge (4) Nausea & vomiting: Due to gastric outlet obstruction. Nausea mildly persists but is improved -Continue aggressive bowel regimen as above -Continue ondansetron and Compazine VT as needed for nausea (5) Diabetes: -Sugars have been within normal limits here, he has minimal p.o. intake and has very poor prognosis overall -He can discontinue his home glipizide and metformin upon discharge He does not need a diabetic diet-he can eat a regular diet (6) High blood pressure: As outpatient, he is on amlodipine, metoprolol tartrate, and valsartan. - Given his very poor PO intake, BP has been normal off his oral meds. BP is controlled here Discontinue all previous cardiac/antihypertensive medications (7) Pain: Due to abdominal cancer and gastric outlet obstruction. with pain med regimen as above (8) DVT prophylaxis: SCDs, Lovenox SQ were provided Disposition-he is stable for dc to SNF today, with transition to [facility] care and Hospice when appropriate Total Time Total Time Spent Total Time Spent (In Minutes): Greater than 30 minutes Total Time Includes: Examination of the Patient, Discharge Planning and Medication Reconciliation Discharge Plan Discharge Items Patient Disposition: Transfer [facility] Fac Reason For Visit: INTRACTABLE ABDOMINAL PAIN, NAUSEA AND VOMITING Discharge Diagnosis: Metastatic cecal cancer, gastric outlet obstruction, abdominal pain Condition: Fair Discharge Goals: Decrease discomfort, Diagnostic testing, Improve disease control, Learn about illness and Therapeutic intervention Activity: As commented below Lifting: None Bathing: No limitations Exercise/Sports: As tolerated Non-emergency contact: Primary Care Provider and Oncologist Follow-up/Referrals: John Ferraro MD [Primary Care Provider] - Arnulfo Chaudhry MD [Family Provider] - (Please follow-up within 1-2 weeks after discharge) Diet: Full liquid Addtl Provider Instructions: You were admitted for abdominal pain and nausea with vomiting, as well as severe constipation. This was due to the tumors in your stomach causing compression of your small intestine. This resolved on its own and your started on dexamethasone as a steroid to help shrink the growth of the tumors to prevent future obstruction. If this occurs, you would require to have a tube placed back down into your stomach to decompress you for pain relief. For your abdominal pain from your cancer, you were started on a fentanyl patch and liquid morphine as needed which worked quite well for you. You can take sublingual ondansetron and per rectum Compazine as needed for nausea. For your severe constipation, you are given daily suppositories of bisacodyl and enemas. You were manually disimpacted with some relief on the day of discharge. He should continue on an aggressive bowel regimen Prescriptions: New fentanyl 12 mcg/hr Patch 72 Hour 12 mcg transdermal Q3D Qty: 1 RF: 0 morphine concentrate 100 mg/5 mL (20 mg/mL) Solution 5 mg PO Q2H PRN (Reason: pain) Qty: 15 RF: 0 calcium carbonate [Tums] 200 mg calcium (500 mg) Tablet,Chewable 1,000 mg PO Q8 PRN (Reason: dyspepsia) Qty: 30 RF: 0 prochlorperazine 25 mg Suppository 25 mg VT Q8 PRN (Reason: nausea and vomiting) Qty: 10 RF: 0 dexamethasone 4 mg tablet 4 mg PO DAILY Qty: 30 RF: 0 docusate sodium 50 mg/15 mL syrup 50 mg PO BID Qty: 118 RF: 0 bisacodyl 10 mg suppository 10 mg VT DAILY PRN (Reason: constipation) Qty: 4 RF: 0 Continued ondansetron HCl [Zofran] 8 mg Tablet 8 mg PO TID PRN (Reason: Nausea) RF: 0 pantoprazole [Protonix] 40 mg Tablet,Delayed Release (Dr/Ec) 40 mg PO DAILY RF: 0 nitroglycerin 0.4 mg Tablet, Sublingual 0.4 mg buccal DIRECTED PRN (Reason: Chest Pain) RF: 0 Discontinued morphine 20 mg/5 mL (4 mg/mL) Solution 1 dose PO UD PRN (Reason: Pain) RF: 0 metformin 500 mg Tablet 500 mg PO BIDM RF: 0 atorvastatin 20 mg Tablet 20 mg PO DAILY RF: 0 glyburide 2.5 mg Tablet 2.5 mg PO QAM RF: 0 valsartan 80 mg Tablet 80 mg PO DAILY RF: 0 amlodipine 5 mg Tablet 5 mg PO DAILY RF: 0 prochlorperazine maleate 10 mg Tablet 10 mg PO Q6 PRN (Reason: Nausea) RF: 0 aspirin 81 mg Tablet,Delayed Release (Dr/Ec) 81 mg PO DAILY RF: 0 tramadol 50 mg Tablet 50 mg PO Q6H PRN (Reason: Pain) RF: 0 flaxseed oil 1,000 mg Capsule 1,300 mg PO DIRECTED RF: 0 metoprolol tartrate 50 mg Tablet 50 mg PO BID RF: 0 docusate sodium [Colace] 100 mg Capsule 100 mg PO BID RF: 0 mirtazapine 15 mg Tablet 15 mg PO DIRECTED PRN (Reason: Unknown) RF: 0 oxycodone 5 mg Tablet 5 mg PO DIRECTED PRN (Reason: Pain) RF: 0 5-Fluorouracil 5,280 mg IV DIRECTED RF: 0 Stand-Alone Forms: Call Back Authorization, [facility] Discharge Orders: Discharge Order (Routine); Ordered 03/13/19 Ordered By: Elo August Skilled Items Patient informed of condition?: Yes DNR: Yes (POLST FORM completed prior to discharge) Discharge Level of Care: Skilled Communicable Disease: No Discharge Prognosis: Stable Admission Data Admit Date/Time: 03/02/19 20:18 Attending Provider: Elo August Admit Provider: Fawad Sams Primary Care Provider: John Ferraro Other Providers: Leland Cobos ; Fawad Sams ; Juan Rocha ; Jaime Jaimes ; Arnulfo Chaudhry ; Viviana Granger Service: Medical Other Pending Studies at Discharge: No
[2019-03-13 14:49] VITALS: O2SAT 98
[2019-03-13 15:32] VITALS: PULSE 116
[2019-03-13] MEDS: HEPARIN 100 UNIT/ML 5ML FLUSH FLUSH PRN (16:31)
[2019-03-13] MEDS: fentaNYL 12 MCG/HR TDSY TD SCH (16:31)
== END 2019-03-13 19:14 | DRG 375 ==
LOC: ED 16:55 → 4E 20:18 → SUATTDRO 20:18 → 4E 21:08